=== PATIENT | female | born 1940 | race Caucasian/White ===

== ENCOUNTER 2020-03-23 08:51 | Outpatient (REF) | payer MEDICARE, SELFPAY ==
[2020-03-23 11:47] LABS: Cholesterol 261 mg/dL; HDL Cholesterol 51 mg/dL; LDL Cholesterol Calculated 159 mg/dl; Triglycerides 257 mg/dL
== END 2020-03-23 08:52 | disposition home or self-care (01) ==
LOC: HO.HMGCLDS 08:51
PROVIDERS: PCP Family Medicine; Visit Provider Family Medicine
DX: R79.89 Other specified abnormal findings of blood chemistry (principal)
CPT/HCPCS: 80061

== ENCOUNTER 2020-07-06 11:43 | Emergency (ER) | payer MEDICARE, SELFPAY ==
[2020-07-06 11:50] VITALS: BP 168/87; PULSE 83; RESP 16; TEMP 36.1; O2SAT 95; BMI 26.4
== END 2020-07-06 16:03 | disposition left against medical advice (07) ==
PROVIDERS: Emergency Provider Emergency Medicine; PCP Internal Medicine
DX: R53.1 Weakness (principal); R42 Dizziness and giddiness; I10 Essential (primary) hypertension
CPT/HCPCS: 99281; 99282

== ENCOUNTER 2020-08-20 08:23 | Outpatient (REF) | payer MEDICARE, SELFPAY ==
[2020-08-20 11:51] LABS: Hematocrit 44.9 % (37-47); Hemoglobin 14.5 g/dl (12.0-16.0); Mean Corpuscular HGB Conc 32.3 g/dl (31.0-35.0); Mean Corpuscular Hemoglobin 29.4 pg (27.0-33.0); Mean Corpuscular Volume 90.9 fL (80-98); Mean Platelet Volume 10.5 fL (9.4-12.3); Platelet Count 218 X10*3/uL (160-400); Red Blood Count 4.94 X10*6/uL (4.20-5.50); Red Cell Distribution Width 13.6 % (11.0-16.0); White Blood Count 6.5 X10*3/uL (4.8-10.8)
[2020-08-20 11:55] LABS: Alanine Aminotransferase 12 U/L (0-31); Albumin Level 4.1 g/dL (3.5-5.0); Alkaline Phosphatase 70 U/L (39-117); Anion Gap 12 (12-20); Aspartate Amino Transferase 17 U/L (5-31); Bilirubin Total 0.7 mg/dL (0.0-1.0); Blood Urea Nitrogen 20 mg/dL (9-16); Calcium 9.5 mg/dL (8.4-10.2); Carbon Dioxide 31 mmol/L (22-29); Chloride 102 mmol/L (96-108); Cholesterol 259 mg/dL; Estimated Glomerular Filt Rate > 60; Glucose Fasting 79 mg/dL (60-99); HDL Cholesterol 56 mg/dL; LDL Cholesterol Calculated 164 mg/dl; Potassium 4.2 mmol/L (3.3-5.1); Sodium 141 mmol/L (135-145); Total Protein 6.9 g/dL (6.5-8.0); Triglycerides 197 mg/dL
[2020-08-20 12:51] LABS: TSH reflex Free T4 2.05 uIU/mL (0.32-4.0)
== END 2020-08-20 08:24 | disposition home or self-care (01) ==
LOC: HO.HMGCLDS 08:23
PROVIDERS: PCP Internal Medicine; Visit Provider Internal Medicine
DX: E78.00 Pure hypercholesterolemia, unspecified (principal); I10 Essential (primary) hypertension
CPT/HCPCS: 36415; 80053; 80061; 84443; 85027

== ENCOUNTER → 2020-11-16 08:26 | Outpatient (BNVA) | payer MEDICARE, SELFPAY | PROVIDERS: PCP Internal Medicine; Referring Provider Internal Medicine; Visit Provider Internal Medicine ==

== ENCOUNTER 2021-05-19 07:28 | Outpatient (REF) | payer MEDICARE, SELFPAY ==
[2021-05-19 11:29] LABS: Hematocrit 43.2 % (37.0-47.0); Hemoglobin 13.9 g/dl (12.0-16.0); Mean Corpuscular HGB Conc 32.2 g/dl (31.0-35.0); Mean Corpuscular Hemoglobin 29.3 pg (27.0-33.0); Mean Corpuscular Volume 90.9 fL (80.0-98.0); Mean Platelet Volume 10.2 fL (9.4-12.3); Platelet Count 213 X10*3/uL (160-400); Red Blood Count 4.75 X10*6/uL (4.20-5.50); Red Cell Distribution Width 13.9 % (11.0-16.0); White Blood Count 5.7 X10*3/uL (4.8-10.8)
[2021-05-19 11:43] LABS: Alanine Aminotransferase 10 U/L (0-31); Albumin Level 3.9 g/dL (3.5-5.0); Alkaline Phosphatase 74 U/L (39-117); Anion Gap 10 (12-20); Aspartate Amino Transferase 18 U/L (5-31); Bilirubin Total 0.9 mg/dL (0.0-1.0); Blood Urea Nitrogen 23 mg/dL (9-16); Calcium 9.4 mg/dL (8.4-10.2); Carbon Dioxide 31 mmol/L (22-29); Chloride 104 mmol/L (96-108); Cholesterol 240 mg/dL; Estimated Glomerular Filt Rate > 60; Glucose Fasting 91 mg/dL (60-99); HDL Cholesterol 53 mg/dL; LDL Cholesterol Calculated 160 mg/dl; Potassium 3.8 mmol/L (3.3-5.1); Sodium 141 mmol/L (135-145); Total Protein 6.7 g/dL (6.5-8.0); Triglycerides 136 mg/dL
[2021-05-19 12:07] LABS: TSH reflex Free T4 3.73 uIU/mL (0.32-4.0)
== END 2021-05-19 07:29 | disposition home or self-care (01) ==
LOC: HO.HMGCLDS 07:28
PROVIDERS: Visit Provider Internal Medicine
DX: E78.00 Pure hypercholesterolemia, unspecified (principal); I10 Essential (primary) hypertension; R53.83 Other fatigue
CPT/HCPCS: 36415; 80053; 80061; 84443; 85027

== ENCOUNTER 2021-06-21 09:19 | Emergency (ER) | payer MEDICARE, SELFPAY ==
--- NOTE | ~2021-06-21 | CT_ITS ---
EXAMINATION: CT BRAIN WITHOUT CONTRAST CT CERVICAL SPINE WITHOUT CONTRAST CLINICAL INFORMATION: Left arm numbness. COMPARISON: CT brain 07/21/2019 TECHNIQUE: 5 mm thin axial and reformatted 2 mm thin sagittal and coronal images of the brain were obtained. Subsequently, axial 3 mm thin and reformatted 2 mm thin sagittal and coronal images of the cervical spine were obtained. DLP: 865 mGy-cm FINDINGS: BRAIN: There is no acute intra-axial, extra-axial bleed, masses or midline shift. The lateral ventricles are symmetrical in size and configuration without enlargement. There is no acute infarct in evolution. There is no edema. Bone windows reveal no calvarial abnormality. Bilateral paranasal sinuses and mastoid air cells are well aerated. CERVICAL SPINE: There is normal cervical lordosis. The vertebral heights and alignment are normal. There is mild loss of the C4-C5, C5-C6 and C6-C7 disc heights with mild ventral and posterior spondylosis. No lytic or sclerotic process seen. The craniovertebral junction and the C1-C2 alignment is normal. The airway is widely patent. The lung apices are clear. The thyroid lobes, submandibular and parotid glands are symmetrical and normal. The visualized paranasal sinuses and mastoid air cells are well aerated and clear. There is mild narrowing of left neural foramina at C3-C4. There is a mild disc bulge/osteophyte complex at the C4-C5, C5-C6 disc levels with mild bilateral narrowing of the neural foramina from uncovertebral and facet joint hypertrophy. Minimal AP canal stenosis is suspected at the C4-C5 disc level. The C6-C7 and C7-T1 disc levels appear unremarkable. CT/CT cervical spine wo con IMPRESSION: No acute intracranial process seen. Mild degenerative osteophyte/bulge complex at the C4-C5, C5-C6 disc levels with minimal AP canal narrowing at the C4-C5 disc level. There is bilateral mild narrowing of the neural foramina at the C4-C5 and C5-C6 disc levels. No visible acute fracture or dislocation is seen.
--- NOTE | ~2021-06-21 | XR_ITS ---
EXAMINATION: XR CHEST CLINICAL INFORMATION: Dyspnea COMPARISON: Previous chest x-ray April 2017 TECHNIQUE: Frontal view of the chest was obtained. FINDINGS: The cardiac and mediastinal contours are stable. The lungs are clear. There is no pleural effusion or pneumothorax. There are mild degenerative changes of the spine. There may be changes from old trauma of the left proximal humerus. XR/XR chest 1V IMPRESSION: No evidence for acute disease in the chest.
[2021-06-21 10:01] VITALS: BP 166/81; PULSE 79; RESP 22; TEMP 36.7; O2SAT 94; BMI 24.5
--- NOTE | 2021-06-21 10:04 | ECG_ITS ---
Test Reason : sob Blood Pressure : / mmHG Vent. Rate : 077 BPM Atrial Rate : 077 BPM P-R Int : 156 ms QRS Dur : 076 ms QT Int : 368 ms P-R-T Axes : 061 -08 011 degrees QTc Int : 416 ms Sinus rhythm with occasional Premature ventricular complexes Inferior infarct (cited on or before 21-JUL-2019) Abnormal ECG When compared with ECG of 21-JUL-2019 11:21, Premature ventricular complexes are now Present Referred By: Generic ED Physician Electronically Signed By:RAY MEADOWS
[2021-06-21 11:18] LABS: Hematocrit 45.4 % (37.0-47.0); Hemoglobin 15.1 g/dl (12.0-16.0); Mean Corpuscular HGB Conc 33.3 g/dl (31.0-35.0); Mean Corpuscular Hemoglobin 29.6 pg (27.0-33.0); Mean Platelet Volume 9.8 fL (9.4-12.3); Platelet Count 230 X10*3/uL (160-400); Red Cell Distribution Width 13.6 % (11.0-16.0); White Blood Count 7.6 X10*3/uL (4.8-10.8)
[2021-06-21 11:29] LABS: Anion Gap 11 (12-20); Blood Urea Nitrogen 21 mg/dL (9-16); Calcium 9.8 mg/dL (8.4-10.2); Carbon Dioxide 31 mmol/L (22-29); Chloride 103 mmol/L (96-108); Creatinine Clr Calc Pharmacy 53.5; Estimated Glomerular Filt Rate > 60; Glucose Random 104 mg/dL (60-115); Potassium 4.6 mmol/L (3.3-5.1); Sodium 140 mmol/L (135-145)
[2021-06-21 11:36] LABS: Troponin-I High Sensitivity < 3.5 ng/L (<3.5-17.0)
[2021-06-21 12:48] VITALS: BP 154/81; PULSE 81
--- NOTE | 2021-06-21 14:16 | ED.SOB ---
HPI - SOB/Dyspnea General Chief Complaint: Dyspnea Stated Complaint: left arm numb/weakness/dizziness Time Seen by Provider: 06/21/21 14:06 Source: patient Mode of arrival: ambulatory Limitations: no limitations History of Present Illness MD elicited complaint: shortness of breath (L arm tingling upon waking, neck pain) Onset (ago): day(s) (occurred over 2 days intermittent) Timing: now resolved Severity: mild Exacerbating factors: exertion, movement and stress Relieving factors: nothing Known history of: other (anxiety) Associated symptoms: other (L arm was tingling this AM when she woke up lasted 1 minute resolved with rubbing has had this before (2 days ago), has issues with neck pain) Treatment prior to arrival: none Related Data Previous Rx's Medication Instructions Recorded triamterene 37.5 1 tab PO DAILY #90 tab 07/06/20 mg-hydrochlorothiazide 25 mg tablet nystatin-triamcinolone 100,000 1 appl TOPICAL BID #60 g 08/06/20 unit/g-0.1 % topical cream triamcinolone acetonide 0.1 % 1 appl TOPICAL BID #30 g 08/06/20 topical cream nystatin 100,000 unit/gram topical 1 appl TOPICAL BID #30 g 05/05/21 cream Allergies Allergy/AdvReac Type Severity Reaction Status Date / Time ciprofloxacin [From CIPRO] Allergy Intermediate VOMITING Verified 05/25/21 09:27 hydrocortisone [Cipro HC] AdvReac Unknown vomiting Verified 05/25/21 09:27 Statins Depletion Allergy Unknown vomiting Uncoded 05/25/21 09:27 Review of Systems Review of Systems: Constitutional : No Fever, No Chills ENT/Mouth : No sore throat, No Rhinorrhea, No Swallowing Difficulty Eyes: No Eye Pain, No Swelling, No Redness Cardiovascular : No Chest Pain, positive SOB, No Orthopnea, no Edema Respiratory : No Cough, No Sputum, No Wheezing, positive dyspnea Gastrointestinal : No Nausea, No Vomiting, No Diarrhea, No abdominal Pain, No Hematochezia, No Melena Genitourinary : No Dysuria, No Urinary Frequency, No Hematuria Musculoskeletal : No joint pain, No Myalgias Skin : No Skin Lesions, No rash Neuro : No Weakness, pos Numbness, No Dizziness, No Headache Psych : No Anxiety/Panic, No Depression Heme/Lymph: No Bruising, No Lymphadenopathy Endocrine : No Polyuria, No Polydipsia All other systems reviewed and are negative [facility] Past Medical History Attestation statement: The following information was validated with the patient. Medical History Annual physical exam Anxiety MARTINEZ (dyspnea on exertion) Dysplastic nevi Fatigue HTN (hypertension) Hypercholesterolemia Osteopenia Osteopenia Osteoporosis Surgical History H/O colonoscopy Family History Family History Father No problems noted. Mother Osteomyelitis Social History Social History Household Members Other:: Lives alone, exercise 5 times a week Housing: House Patient Tobacco Use Status: Former Tobacco user e-Cigarette/Vaping Use: Never Used Advance Directives: No Advance Directives Information Provided: No Current occupational status: retired Physical Exam Vital Signs: Vital Signs: Last Vital Signs Temp 98.1 F 06/21/21 15:24 Pulse 77 06/21/21 15:24 Resp 18 06/21/21 15:24 BP 152/75 H 06/21/21 15:24 Pulse Ox 96 06/21/21 15:24 BMI result Body Mass Index 24.5 Appearance: Alert. Oriented X3. No acute distress. Eyes: Pupils equal, round and reactive to light. ENT: Pharynx normal. Neck: Normal inspection. Neck supple. some pain on Left side of neck with spurling's maneuver and palpation CVS: Normal heart rate and rhythm. Pulses normal. Respiratory: No respiratory distress. Breath sounds normal. Abdomen: Soft and non-tender. Skin: Skin warm and dry. Normal skin color. Normal skin turgor. Extremities: No lower extremity edema. No calf ttp Neuro: Oriented X 3. No motor deficit. No sensory deficit. Course Course Course Narrative: H/H normal, trop negative x 2, BNP negative, CXR negative likely symptoms in arm this AM that lasted a minute upon waking was cervical radiculopathy as it improved with rubbing arm and stretching has had this dyspnea before would benefit her to see a senior cytogenetics laboratory director for ECHO/stress test MDM - SOB/Dyspnea MDM Narrative Medical decision making narrative: 80 yo female with hx of HTN, HLD, anxiety comes in with bouts on and off of dyspnea at times but no chest pain. She also notes that two days ago and this AM upon waking her L arm was number for a minute she rubbed it and it resolved. She does have neck pain at times. She checks her temperature every day due to COVID and noted today it was 95.2. She has seen a walk in clinic but not a senior cytogenetics laboratory director for her dyspnea. At this time will obtain EKG, CXR, BNP, troponin x 2, CT scan of head though it seems her L arm symptoms upon waking is likely a cervical radiculopathy and CT scan of neck. Dispo per results and findings Lab Data Result diagrams: 06/21/21 11:10 06/21/21 11:10 Labs: Lab Results 06/21/21 06/21/21 06/21/21 Range/Units 11:10 11:10 11:10 WBC 7.6 (4.8-10.8) X10*3/uL RBC 5.10 (4.20-5.50) X10*6/uL Hgb 15.1 (12.0-16.0) g/dl Hct 45.4 (37.0-47.0) % MCV 89.0 (80.0-98.0) fL MCH 29.6 (27.0-33.0) pg MCHC 33.3 (31.0-35.0) g/dl RDW 13.6 (11.0-16.0) % Plt Count 230 (160-400) X10*3/uL MPV 9.8 (9.4-12.3) fL Absolute Nucleated RBC 0.000 (0.0-0.012) X10*3/uL Nucleated RBC % (auto) 0.0 (0.0-0.2) /100WBC Sodium 140 (135-145) mmol/L Potassium 4.6 D (3.3-5.1) mmol/L Chloride 103 (96-108) mmol/L Carbon Dioxide 31 H (22-29) mmol/L Anion Gap 11 L (12-20) BUN 21 H (9-16) mg/dL Creatinine 0.72 (0.5-1.4) mg/dL Estim Creat Clear Calc 53.5 Estimated GFR > 60 Random Glucose 104 (60-115) mg/dL Calcium 9.8 (8.4-10.2) mg/dL Troponin I High Sens < 3.5 (<3.5-17.0) ng/L B-Natriuretic Peptide (<100) pg/mL COVID-19 ([facility]) (Negative) COVID-19 [facility] 06/21/21 06/21/21 06/21/21 Range/Units 15:07 15:07 15:07 WBC (4.8-10.8) X10*3/uL RBC (4.20-5.50) X10*6/uL Hgb (12.0-16.0) g/dl Hct (37.0-47.0) % MCV (80.0-98.0) fL MCH (27.0-33.0) pg MCHC (31.0-35.0) g/dl RDW (11.0-16.0) % Plt Count (160-400) X10*3/uL MPV (9.4-12.3) fL Absolute Nucleated RBC (0.0-0.012) X10*3/uL Nucleated RBC % (auto) (0.0-0.2) /100WBC Sodium (135-145) mmol/L Potassium (3.3-5.1) mmol/L Chloride (96-108) mmol/L Carbon Dioxide (22-29) mmol/L Anion Gap (12-20) BUN (9-16) mg/dL Creatinine (0.5-1.4) mg/dL Estim Creat Clear Calc Estimated GFR Random Glucose (60-115) mg/dL Calcium (8.4-10.2) mg/dL Troponin I High Sens < 3.5 (<3.5-17.0) ng/L B-Natriuretic Peptide < 10 (<100) pg/mL COVID-19 ([facility]) Negative (Negative) COVID-19 Clin [employer] See Note ECG Data Attestation: I personally reviewed and interpreted this ECG as follows: ECG interpretation date: 06/21/21 ECG interpretation time: 14:18 Interpretation: Rate: 77 Rhythm: NSR with occ PVCs [place]: left Normal P waves. Normal KAMI. Normal QRS complex. ST T wave : no JUAN PABLO, normal , inverted T wave III qTC: normal prior studies: no acute ischemia The study has been interpreted contemporaneously by me. . Discharge Plan Discharge Clinical Impression: MARTINEZ (dyspnea on exertion), Cervical radiculopathy Patient Disposition: Home, Self-Care Instructions: Cervical Radiculopathy (ED), Dyspnea (ED) Additional Instructions: return to ED for any worsening symptoms or concerns No acute intracranial process seen. ? Mild degenerative osteophyte/bulge complex at the C4-C5, C5-C6 disc levels with minimal AP canal narrowing at the C4-C5 disc level. There is bilateral mild narrowing of the neural foramina at the C4-C5 and C5-C6 disc levels. No visible acute fracture or dislocation is seen. Prescriptions: No Action triamterene-hydrochlorothiazid 37.5-25 mg tablet 1 tab PO DAILY Qty: 90 3RF triamcinolone acetonide 0.1 % cream 1 appl topical BID Qty: 30 0RF nystatin 100,000 unit/gram cream 1 appl topical BID Qty: 30 0RF nystatin-triamcinolone 100,000-0.1 unit/g-% cream 1 appl topical BID Qty: 60 0RF Referrals: Renee Lizarraga MD [Primary Care Provider] - 2 days (if this persists) Abilio Veliz MD [Physician] - 1 week (senior cytogenetics laboratory director)
[2021-06-21 15:24] VITALS: BP 152/75; PULSE 77; RESP 18; TEMP 36.7; O2SAT 96
[2021-06-21 15:30] LABS: COVID-19 Test Negative (Negative)
[2021-06-21 15:36] LABS: B Type Natriuretic Peptide < 10 pg/mL (<100); Troponin-I High Sensitivity < 3.5 ng/L (<3.5-17.0)
[2021-06-21 16:11] VITALS: BP 136/74; PULSE 88; RESP 18; O2SAT 96
== END 2021-06-21 16:23 | disposition home or self-care (01) ==
PROVIDERS: Emergency Provider Emergency Medicine; PCP Internal Medicine
DX: M54.12 Radiculopathy, cervical region (principal); R06.00 Dyspnea, unspecified; R51.9 Headache, unspecified; R06.02 Shortness of breath; R20.0 Anesthesia of skin; R42 Dizziness and giddiness; Z20.822 Contact with and (suspected) exposure to COVID-19; Z87.891 Personal history of nicotine dependence; Z79.899 Other long term (current) drug therapy
CPT/HCPCS: 36415; 70450; 71045; 72125; 80048; 83880; 84484; 85027; 87635; 93005; 99284

== ENCOUNTER → 2021-07-27 10:23 | Outpatient (BNVA) | payer MEDICARE, SELFPAY | PROVIDERS: PCP Internal Medicine; Referring Provider Internal Medicine; Visit Provider Internal Medicine | DX: R94.31 Abnormal electrocardiogram [ECG] [EKG] (principal); I49.3 Ventricular premature depolarization; I10 Essential (primary) hypertension | CPT/HCPCS: 99202 ==

== ENCOUNTER → 2021-12-22 08:32 | Outpatient (REF) | payer MEDICARE, SELFPAY ==
--- NOTE | 2021-12-22 08:42 | CA_ITS ---
Transthoracic Echocardiogram Patient (Last, First, Middle): Carmelita Rodrigez, Gender: Female Date of : 1940 Age: 81 Procedure Date: 12/22/2021 Procedure Type: Transthoracic Echocardiogram Location: OP Height: 154.94 cm Weight: 60.78 kg BSA: 1.59 m2 Heart Rate: bpm BP: 132 / 70 mmHg Hand Booked Folder And Stitcher: AKIKO Referring MD: Abilio Veliz MD Shake Out Worker: George Hawk MD Symptoms: R06.00 - Dyspnea, unspecified Study Quality: Adequate ECG Rhythm: Sinus Conclusions: - 1. Normal LV systolic function with mild asymmetric septal hypertrophy with impaired relaxation filling pattern 2. Mild mitral calcification with normal cardiac valvular Doppler 3. Normal RV systolic pressure 4. No gross pericardial effusion Findings Left Ventricle Normal left ventricular size, thickness, and systolic function. The visually estimated ejection fraction is between 60-65%. Spectral Doppler is indicative of an impaired relaxation filling pattern. E/E prime ratio is between 8 and 15 consistent with indeterminate filling pressures. There is mild septal asymmetric hypertrophy. Right Ventricle Normal right ventricular cavity size and systolic function. Atria The left atrium is normal in size. There is lipomatous hypertrophy of the interatrial septum. There is no evidence of interatrial shunt. The right atrium is normal in size. Aortic Valve The aortic valve structure and function is likely normal. There is no aortic valve stenosis. There is no aortic valve regurgitation. Mitral Valve There is mild anterior and posterior mitral leaflet thickening. There is mild mitral annular calcification. There is trace mitral valve regurgitation. There is no mitral valve stenosis. Pulmonic Valve The pulmonic valve was not well visualized. Tricuspid Valve Likely normal tricuspid valve structure and function. There is trace tricuspid valve regurgitation. The right ventricular systolic pressure is normal. The right ventricular systolic pressure is 16 mmHg. Normal right atrial pressure. There is no evidence of pulmonary hypertension. Great Vessels All visible segments of the aorta are normal in size. The pulmonary artery was not well visualized. Venous The inferior vena cava is normal in size and collapses greater than 50% with inspiration. Pericardium/Pleural There is no evidence of pericardial effusion. Prior Study Comparison No prior study available for comparison. Measurements 2D Linear Measurements IVSd: 1.03 0.6-0.9/0.6-1.0 cm LVIDd: 4.32 3.9-5.3/4.2-5.9 cm LVIDd Index: 2.72 2.4-3.2/2.2-3.1 cm/m2 LVIDs: 2.65 2.0-3.6 cm LVPWd: 0.89 0.7-1.1 cm LA Diam: 3.70 2.7-3.8/3.0-4.0 cm LAIDs Index: 2.33 1.5-2.3 cm/m2 LV Mass: 168.72 67-162/88-224 g LV Mass Index: 106.11 43-95/49-115 g/m2 LVOT Diam: 1.90 3.0+(-)1.3 cm 2D Systolic Function EF 4C: 61.50 >55% EF 2C: 68.50 >55% EF BiP: 65.20 >55% Mitral Valve MV Pk E: 0.64 MV PK A: 0.83 MV Decel Time: 278.00 E/A: 0.80 E'Lateral: 8.27 E'Medial: 4.03 E/E' Med: 15.80 E/E' Lat: 7.70 PHT: 82.00 MVA PHT: 2.68 Decel Leslie: 2.29 Aortic Valve AoV Pk Randy: 0.90 AoV Mn Randy: 0.69 AoV VTI: 0.25 AoV Pk Grad: 3.00 Aov Mn Grad: 2.00 YUSUF Cont.VTI: 2.26 LVOT LVOT Pk Randy: 0.74 LVOT Mn Randy: 0.46 LVOT VTI: 0.20 LVOT Pk Grad: 2.00 LVOT Mn Grad: 1.00 LVOT Diam: 1.90 LVOT Area: 2.84 Diastolic Function MV Pk E: 0.64 MV Pk A: 0.83 E/A: 0.80 E'Medial: 4.03 E/E' Med: 15.80 E' Laterial: 8.27 E/E' Lat: 7.70 Right Ventricle TAPSE (mm): 19.90 TVS' Randy: 10.90 Tricuspid Valve TR Pk Randy: 1.82 TR Pk Grad: 13.00 RA Press: 3.00 RVSP: 16.00 Great Vessels Aorta Sinus of Valsalva: 3.09 2.0-3.[address] [place]: 2.64 1.7-3.4 cm Ao Asc: 3.00 2.1-3.4 cm Updated in Other Vendor System with Status of Final George Hawk MD electronically signed on 12/22/2021 4:41:13 PM with status of Final
== END ==
LOC: HO.CARD 08:32
PROVIDERS: PCP Internal Medicine; Visit Provider Internal Medicine
DX: R06.00 Dyspnea, unspecified (principal); R94.31 Abnormal electrocardiogram [ECG] [EKG]
CPT/HCPCS: 93306

== ENCOUNTER 2022-03-08 08:02 | Outpatient (REF) | payer MEDICARE, SELFPAY ==
[2022-03-08 14:22] LABS: MANUAL DIFF FLAG NO
[2022-03-08 14:32] LABS: Basophils Percent Auto 0.4 % (0-2); Eosinophils Absolute Auto 0.1 X10*3/uL (0.0-0.4); Eosinophils Percent Auto 2.3 % (0-4); Hematocrit 43.4 % (37.0-47.0); Hemoglobin 13.7 g/dl (12.0-16.0); Imm Gran Abs Auto 0.01 X10*3/uL (0.00-0.03); Imm Gran Pct Auto 0.2 % (0.0-0.4); Lymphocytes Absolute Auto 1.2 X10*3/uL (1.2-4.9); Lymphocytes Percent Auto 22.5 % (20-40); Mean Corpuscular HGB Conc 31.6 g/dl (31.0-35.0); Mean Corpuscular Hemoglobin 29.1 pg (27.0-33.0); Mean Corpuscular Volume 92.1 fL (80.0-98.0); Mean Platelet Volume 10.5 fL (9.4-12.3); Monocytes Absolute Auto 0.4 X10*3/uL (0.1-1.2); Monocytes Percent Auto 7.8 % (2-11); Neutrophils Absolute Auto 3.5 x10*3/uL (2.0-8.3); Neutrophils Percent Auto 66.8 % (45-73); Platelet Count 220 X10*3/uL (160-400); Red Blood Count 4.71 X10*6/uL (4.20-5.50); Red Cell Distribution Width 13.8 % (11.0-16.0); White Blood Count 5.3 X10*3/uL (4.8-10.8)
[2022-03-08 17:04] LABS: Alanine Aminotransferase 14 U/L (0-31); Albumin Level 3.9 g/dL (3.5-5.0); Alkaline Phosphatase 74 U/L (39-117); Anion Gap 12 (12-20); Aspartate Amino Transferase 18 U/L (5-31); Bilirubin Total 0.6 mg/dL (0.0-1.0); Blood Urea Nitrogen 20 mg/dL (9-16); Calcium 9.3 mg/dL (8.4-10.2); Carbon Dioxide 31 mmol/L (22-29); Chloride 104 mmol/L (96-108); Cholesterol 267 mg/dL; Estimated Glomerular Filt Rate > 60; Glucose Fasting 92 mg/dL (60-99); HDL Cholesterol 52 mg/dL; LDL Cholesterol Calculated 185 mg/dl; Potassium 3.7 mmol/L (3.3-5.1); Sodium 143 mmol/L (135-145); Total Protein 6.5 g/dL (6.5-8.0); Triglycerides 152 mg/dL; Vitamin D 25-OH Total 25.5 ng/mL (>30)
== END 2022-03-08 08:03 | disposition home or self-care (01) ==
LOC: HO.HMGCLDS 08:02
PROVIDERS: PCP Internal Medicine; Visit Provider Internal Medicine
DX: E55.9 Vitamin D deficiency, unspecified (principal); E78.00 Pure hypercholesterolemia, unspecified; I49.3 Ventricular premature depolarization; I10 Essential (primary) hypertension
CPT/HCPCS: 36415; 80053; 80061; 82306; 85025

== ENCOUNTER 2022-04-18 13:00 | Outpatient (RCR) | payer MEDICARE, SELFPAY ==
--- NOTE | 2022-04-05 16:48 | MHC.PT.EP ---
[facility] [place] Office [place] Office [place] Office [address] [phone] F: [phone] F: [phone] F: [phone] F: [phone] Physical Therapy Plan of Care Date of Evaluation: Date of Surgery: Diagnosis: Cervical radiculopathy Assessment: Pt is an 81 y/o female referred to PT for eval and treat of cervical radiculopathy resulting in decreased tolerance for static postures, reading, lifting objects of weight, walking, as well as disturbed sleep and frequent CHAMORRO secondary to increases suboccipital and accessory tissue tension, decreased cervical and scapular posture, and pain. Pt is deemed an appropriate candidate to receive skilled PT services to address their physical impairments in order to improve their functional ability. Frequency and Duration: The patient will be seen 2 x/ wk x 4wks. Short Term Goals: Initiate HEP. Improve baseline pain to < 3/10; initial 4/10. Jail Goals: I with Home Program. Pt will be able to as much as she'd like with moderate pain in her neck; initial: cannot read as much as she'd like d/t severe cervical pain. Improve NDI outcome measure by at least 8 points in order to demonstrate improved cervical function. Initial: 15/50 (30%) Treatment Plan: Modalities to reduce pain, spasms and effusion. Manual therapy to restore motion and function. Therapeutic exercise to improve strength and flexibility. Neuromuscular re-education for posture and balance. Therapeutic activities to return to functional activities of daily living. Electronically signed by: Dennis Pollock PT Please sign and return to therapist. Thank you for your referral.
--- NOTE | 2022-05-23 14:48 | MHC.PT.DC ---
[facility] [place] Office [place] Office [place] Office [address] Yaw Herring [address] [phone] F: [phone] F: [phone] F: [phone] F: [phone] Physical Therapy Discharge Report Diagnosis: Cervical radiculopathy Date of Surgery: Date of Evaluation: 04/05/22 Date of Discharge: 05/23/22 Treatments to Date: 3 Cancellations to Date: 2 No Shows to Date: Discharge Status: Patient Elected to Stop Discharge Summary: From last Tx: Reviewed exercises with good tolerance and motivation. no adverse effects. Trialed gentle manual with good tolerance. continue as sher, gentle progression. Patient improving. Electronically signed by: Dennis Pollock PT. Please sign and return to therapist. Thank you for your referral.
== END 2022-05-23 14:48 | disposition home or self-care (01) ==
LOC: HO.PTCHIC 13:00
PROVIDERS: PCP Internal Medicine; Visit Provider Internal Medicine
DX: M54.12 Radiculopathy, cervical region (principal)
CPT/HCPCS: 97110; 97140; 97161

== ENCOUNTER 2023-01-17 09:51 | Outpatient (AMB) | payer MEDICARE, SELFPAY ==
[2023-01-17 09:59] VITALS: BP 134/72; PULSE 65; O2SAT 95; BMI 25.6
--- NOTE | 2023-01-17 09:59 | MHC.PC.OV ---
Vital Signs 01/17/23 09:59 Height 5 ft 2 in Weight 140 lb BMI 25.6 BP 134/72 Blood Pressure Location Lt brachial Position Sitting Pulse 65 Pulse Source Pulse Oximeter Pulse Oximetry (%) 95 Oxygen Delivery Method Room Air Intake Visit Reasons: sick Intake Note: Pt is here today for a sick visit. Pt c/o dizziness and feeling tired. Pt also c/o out of breath a lot. Allergies ciprofloxacin [From CIPRO] Allergy (Intermediate, Verified 01/17/23 09:59) VOMITING hydrocortisone [Cipro HC] Adverse Reaction (Unknown, Verified 01/17/23 09:59) vomiting Statins Depletion Allergy (Unknown, Uncoded 01/17/23 09:59) vomiting Medication List - Last Reconciled 01/17/23 by Renee Lizarraga MD nystatin 1 appl topical BID nystatin-triamcinolone 100,000-0.1 unit/g-% 1 appl topical BID triamcinolone acetonide 0.1% 1 appl topical BID triamterene-hydrochlorothiazid 37.5-25 mg 1 tab PO DAILY Tobacco use date assessed: 01/17/23 Fall risk assessment: No Falls in past year Last assessed Fall Risk: 01/17/23 Dental Screening Dental Screen Date: 01/17/23 Did you have a dental visit in the last 12 months?: Yes Did you have a dental problem in the last 6 months where you did not have access to dental care?: No Was dental information given to patient?: Patient has dentist HPI sick HPI Details Pt c/o worsening anxiety and depression for 6 months. Pt denies change in appetite, sleep pattern, weight loss. Patient has 3 close friends within the last year. Hypertension has been controlled on Dyazide. PFSH Medical History Dysplastic nevi Annual physical exam MARTINEZ (dyspnea on exertion) Fatigue Anxiety Hypercholesterolemia Osteopenia Surgical History H/O colonoscopy Family History Father No problems noted. Mother Osteomyelitis Social History Household Members Other:: Lives alone, exercise 5 times a week Housing: House Patient Tobacco Use Status: Former Tobacco user e-Cigarette/Vaping Use: Never Used Current occupational status: retired Cognitive needs: No Hearing needs: No Vision needs: Yes Questionnaire Thrive Questionnaire Date Thrive assessed: 04/11/22 COLLEEN-7 AMB Questionnaire COLLEEN-7 Date COLLEEN - 7 assessed: 04/11/22 Source: Developed by Drs. José Miguel Canela, Nafisa Lucas, Yony Schultz and colleagues, with an educational neal from [employer]. Review of Systems Const All systems reviewed & are unremarkable except as noted in HPI and below Reports no additional complaints Eyes Reports no additional complaints ENT Reports no additional complaints Card Reports no additional complaints Resp Reports no additional complaints GI Reports no additional complaints Reports no additional complaints Physical exam (Primary Care) Vital Signs: Last Vital Signs Pulse 65 01/17/23 09:59 BP 134/72 01/17/23 09:59 Pulse Ox 95 01/17/23 09:59 Oxygen Delivery Method Room Air 01/17/23 09:59 BMI result Body Mass Index 25.6 Tobacco/Smoking Status: Tobacco use Status Tobacco use date assessed 01/17/23 01/17/23 10:00 Patient Tobacco Use Status Former Tobacco user 01/17/23 10:00 e-Cigarette/Vaping Use Never Used 01/17/23 10:00 Thrive Assessment: Date of Thrive Assessment Date Thrive assessed 04/11/22 01/17/23 10:00 Const General: no acute distress HENMT Head: Yes normal to inspection Ears: hearing grossly normal bilaterally General nose exam: Normal external nose present Face and sinus: Yes normal facial exam Mouth: Normal oral and palatal mucosa present Throat: Yes posterior oropharynx normal Eyes General: appearance normal, both eyes and all related structures Neck Neck: Yes supple Resp Effort & Inspection: normal respiratory effort Auscultation: clear to auscultation bilaterally Cardio Rhythm: regular rhythm Heart sounds: S1 normal heart sound present and S2 normal heart sound present GI Inspection: Yes normal to inspection Palpation (GI): Soft to palpation Percussion: Yes normal to percussion Auscultation: normal bowel sounds Assessment and Plan Assessment & Plan (1) Vitamin D deficiency: Code(s): E55.9 - Vitamin D deficiency, unspecified Plan: Continue vitamin-D (2) PVC (premature ventricular contraction): Code(s): I49.3 - Ventricular premature depolarization (3) Fatigue: Code(s): R53.83 - Other fatigue Plan: Check blood work today including CBC and TSH (4) Hypercholesterolemia: Comment: intolerant to statins Code(s): E78.00 - Pure hypercholesterolemia, unspecified Plan: Check lipid profile (5) Essential hypertension: Code(s): I10 - Essential (primary) hypertension Plan: Continue current medication (6) Anxiety and depression: Code(s): F41.9 - Anxiety disorder, unspecified; F32.A - Depression, unspecified Plan: Start 25 mg of sertraline follow-up in 1 month, patient declined counseling Orders: Orders Comprehensive [place]. Panel Fast Today E55.9 - Vitamin D deficiency, unspecified, E78.00 - Pure hypercholesterolemia, unspecified, I10 - Essential (primary) hypertension, I49.3 - Ventricular premature depolarization, R53.83 - Other fatigue Lipid Panel Today E55.9 - Vitamin D deficiency, unspecified, E78.00 - Pure hypercholesterolemia, unspecified, I10 - Essential (primary) hypertension, I49.3 - Ventricular premature depolarization, R53.83 - Other fatigue Vitamin D 25-OH Total Today E55.9 - Vitamin D deficiency, unspecified, E78.00 - Pure hypercholesterolemia, unspecified, I10 - Essential (primary) hypertension, I49.3 - Ventricular premature depolarization, R53.83 - Other fatigue TSH reflex Free T4 Today E55.9 - Vitamin D deficiency, unspecified, E78.00 - Pure hypercholesterolemia, unspecified, I10 - Essential (primary) hypertension, I49.3 - Ventricular premature depolarization, R53.83 - Other fatigue Complete Blood Count Auto Diff Today E55.9 - Vitamin D deficiency, unspecified, E78.00 - Pure hypercholesterolemia, unspecified, I10 - Essential (primary) hypertension, I49.3 - Ventricular premature depolarization, R53.83 - Other fatigue Medications: New sertraline 25 mg PO DAILY 30 tabs 3RF Coding Level of Care Code Est Pt Level 4 (07264) Diagnoses Vitamin D deficiency E55.9 PVC (premature ventricular contraction) I49.3 Fatigue R53.83 Hypercholesterolemia E78.00 Essential hypertension I10 Anxiety and depression F41.9; F32.A
== END 2023-01-17 10:57 | disposition home or self-care (01) ==
LOC: HO.HMGC 09:51
PROVIDERS: PCP Internal Medicine; Visit Provider Internal Medicine
DX: E55.9 Vitamin D deficiency, unspecified (principal); I49.3 Ventricular premature depolarization; R53.83 Other fatigue; E78.00 Pure hypercholesterolemia, unspecified; I10 Essential (primary) hypertension; F41.9 Anxiety disorder, unspecified; F32.A Depression, unspecified
CPT/HCPCS: 99214

== ENCOUNTER 2023-01-17 10:46 | Outpatient (REF) | payer MEDICARE, SELFPAY ==
[2023-01-17 13:40] LABS: MANUAL DIFF FLAG NO
[2023-01-17 13:46] LABS: Basophils Percent Auto 0.4 % (0-2); Eosinophils Absolute Auto 0.1 X10*3/uL (0.0-0.4); Eosinophils Percent Auto 1.6 % (0-4); Hemoglobin 14.2 g/dl (12.0-16.0); Imm Gran Abs Auto 0.02 X10*3/uL (0.00-0.03); Imm Gran Pct Auto 0.3 % (0.0-0.4); Lymphocytes Absolute Auto 1.5 X10*3/uL (1.2-4.9); Lymphocytes Percent Auto 20.1 % (20-40); Mean Corpuscular HGB Conc 32.3 g/dl (31.0-35.0); Mean Corpuscular Hemoglobin 29.3 pg (27.0-33.0); Mean Corpuscular Volume 90.9 fL (80.0-98.0); Mean Platelet Volume 10.4 fL (9.4-12.3); Monocytes Absolute Auto 0.6 X10*3/uL (0.1-1.2); Monocytes Percent Auto 7.6 % (2-11); Neutrophils Absolute Auto 5.2 x10*3/uL (2.0-8.3); Platelet Count 222 X10*3/uL (160-400); Red Blood Count 4.84 X10*6/uL (4.20-5.50); Red Cell Distribution Width 13.7 % (11.0-16.0); White Blood Count 7.5 X10*3/uL (4.8-10.8)
[2023-01-17 14:19] LABS: Alanine Aminotransferase 12 U/L (0-31); Alkaline Phosphatase 68 U/L (39-117); Anion Gap 12 (12-20); Aspartate Amino Transferase 19 U/L (5-31); Bilirubin Total 0.8 mg/dL (0.0-1.0); Blood Urea Nitrogen 16 mg/dL (9-16); Calcium 9.8 mg/dL (8.4-10.2); Carbon Dioxide 30 mmol/L (22-29); Chloride 102 mmol/L (96-108); Cholesterol 274 mg/dL (<200); Estimated Glomerular Filt Rate > 60; Glucose Fasting 84 mg/dL (60-99); HDL Cholesterol 52 mg/dL (>40); LDL Cholesterol Calculated 187 mg/dL (<100); Potassium 3.6 mmol/L (3.3-5.1); Sodium 140 mmol/L (135-145); Total Protein 7.3 g/dL (6.5-8.0); Triglycerides 175 mg/dL (<150)
[2023-01-17 14:27] LABS: TSH reflex Free T4 2.25 uIU/mL (0.32-4.0); Vitamin D 25-OH Total 27.8 ng/mL (>30)
== END 2023-01-17 10:47 | disposition home or self-care (01) ==
LOC: HO.HMGCLDS 10:46
PROVIDERS: PCP Internal Medicine; Visit Provider Internal Medicine
DX: E55.9 Vitamin D deficiency, unspecified (principal); I49.3 Ventricular premature depolarization; R53.83 Other fatigue; E78.00 Pure hypercholesterolemia, unspecified; I10 Essential (primary) hypertension
CPT/HCPCS: 36415; 80053; 80061; 82306; 84443; 85025

== ENCOUNTER 2023-02-19 09:56 | Outpatient (AMB) | payer MEDICARE, SELFPAY ==
--- NOTE | 2023-02-19 09:58 | A.OFFPC_ITS ---
Vital Signs 02/19/23 09:59 Height 5 ft 2 in Weight 140 lb BMI 25.6 BP 128/70 Blood Pressure Location Lt brachial Position Sitting Pulse 71 Pulse Source Pulse Oximeter Pulse Oximetry (%) 96 Oxygen Delivery Method Room Air Intake Visit Reasons: 1 Month follow up Intake Note: Pt is here today for 1 month follow up visit on BP. Allergies ciprofloxacin [From CIPRO] Allergy (Intermediate, Verified 02/19/23 10:07) VOMITING hydrocortisone [Cipro HC] Adverse Reaction (Unknown, Verified 02/19/23 10:07) vomiting Statins Depletion Allergy (Unknown, Uncoded 02/19/23 10:07) vomiting Medication List - Last Reconciled 02/19/23 by Renee Lizarraga MD nystatin 1 appl topical BID nystatin-triamcinolone 100,000-0.1 unit/g-% 1 appl topical BID triamcinolone acetonide 0.1% 1 appl topical BID triamterene-hydrochlorothiazid 37.5-25 mg 1 tab PO DAILY Tobacco use date assessed: 02/19/23 HPI 1 Month follow up HPI Details Pt presents for the follow-up of chronic anxiety. Patient did not take Zoloft. She has been exercising regularly and eating well-balanced diet. She has been following low-cholesterol diet for hyperlipidemia. Hypertension is controlled on Dyazide. Patient is going for cataract surgery in March. [facility] Medical History (Updated 02/19/23 @ 10:38 by Renee Lizarraga MD) HTN (hypertension) Dysplastic nevi Annual physical exam MARTINEZ (dyspnea on exertion) Fatigue Anxiety Hypercholesterolemia Osteopenia Surgical History H/O colonoscopy Family History Father No problems noted. Mother Osteomyelitis Household Members Other:: Lives alone, exercise 5 times a week Housing: House Patient Tobacco Use Status: Former Tobacco user e-Cigarette/Vaping Use: Never Used Current occupational status: retired Cognitive needs: No Hearing needs: No Vision needs: Yes Questionnaire PHQ-9 Over the last 2 weeks, how often have you been bothered by any of the following problems? 1. Little interest or pleasure in doing things: several days 2. Feeling down, depressed, or hopeless: several days 3. Trouble falling or staying asleep, or sleeping too much: not at all 4. Feeling tired or having little energy: more than half the days 5. Poor appetite or overeating: not at all 6. Feeling bad about yourself - or that you are a failure or have let yourself or your family down: not at all 7. Trouble concentrating on things, such as reading the newspaper or watching television: not at all 8. Moving or speaking so slowly that other people could have noticed. Or the opposite - being so fidgety or restless that you have been moving around a lot more than usual: not at all 9. Thoughts that you would be better off or of hurting yourself in some way: not at all Total score: 4 Depression Screening Interpretation: Negative Depression Screening Done: Yes 23883 - PHQ-9 Billing: Yes Source: Developed by Drs. José Miguel Canela, Nafisa Lucas, Yony Schultz and colleagues, with an educational neal from [employer]. Thrive Questionnaire Date Thrive assessed: 02/19/23 I am a: Patient What is your living situation today?: I have a steady place to live Within the past 12 months, did the food you bought not last and you didn't have the money to get more?: Never true Within the past 12 months, did you worry whether your food would run out before you got money to buy more?: Never true Do you have trouble paying for medicines?: No Do you have trouble getting transportation to medical appointments?: No Do you have trouble paying your heating and electricity bill?: No Do you have trouble taking care of your child, family member or friend?: No Do you have trouble with day-to-day activities such as bathing, preparing meals, shopping, managing finances, etc.?: No Are you currently unemployed and looking for a job?: No Are you interested in more education?: No Please select the resources that you would like help with: None COLLEEN-7 AMB Questionnaire COLLEEN-7 Date COLLEEN - 7 assessed: 02/19/23 Feeling nervous, anxious, or on edge: 0 = Not at all Not being able to stop or control worryin = Not at all Worrying too much about different things: 1 = Several days Trouble relaxin = Not at all Being so restless that it is hard to sit still: 0 = Not at all Becoming easily annoyed or irritable: 0 = Not at all Feeling afraid as if something awful might happen: 0 = Not at all Total COLLEEN-7 score (0-4 normal; 5-9 mild; 10-14 moderate; 15-21 severe): 1 Source: Developed by Drs. José Miguel Canela, Nafisa Lucas, Yony Schultz and colleagues, with an educational neal from [employer]. Review of Systems Const All systems reviewed & are unremarkable except as noted in HPI and below Reports no additional complaints Eyes Reports no additional complaints ENT Reports no additional complaints Card Reports no additional complaints Resp Reports no additional complaints GI Reports no additional complaints Reports no additional complaints Physical exam (Primary Care) Vital Signs: Last Vital Signs Pulse 71 02/19/23 09:59 BP 128/70 02/19/23 09:59 Pulse Ox 96 02/19/23 09:59 Oxygen Delivery Method Room Air 02/19/23 09:59 BMI result Body Mass Index 25.6 Tobacco/Smoking Status: Tobacco use Status Tobacco use date assessed 02/19/23 02/19/23 10:07 Patient Tobacco Use Status Former Tobacco user 02/19/23 09:59 e-Cigarette/Vaping Use Never Used 02/19/23 09:59 PHQ-9: PHQ-9 Score PHQ-9: Total score 4 02/19/23 10:09 Depression Screening Interpretation: Negative Thrive Assessment: Date of Thrive Assessment Date Thrive assessed 02/19/23 02/19/23 10:09 Const General: no acute distress HENMT Head: Yes normal to inspection Ears: hearing grossly normal bilaterally Mouth: Normal oral and palatal mucosa present Neck Neck: Yes no lymphadenopathy and Yes supple Resp Effort & Inspection: normal respiratory effort Auscultation: clear to auscultation bilaterally Cardio Rhythm: regular rhythm Heart sounds: S1 normal heart sound present and S2 normal heart sound present Assessment and Plan Assessment & Plan (1) Hypercholesterolemia: Comment: intolerant to statins Code(s): E78.00 - Pure hypercholesterolemia, unspecified Plan: Continue low-cholesterol diet (2) HTN (hypertension): Code(s): I10 - Essential (primary) hypertension Qualifiers: Hypertension type: unspecified Qualified Code(s): I10 - Essential (primary) hypertension Plan: Continue Dyzide (3) Anxiety and depression: Code(s): F41.9 - Anxiety disorder, unspecified; F32.A - Depression, unspecified Plan: improved (4) Cataract: Code(s): H26.9 - Unspecified cataract Plan: Pt is cleared for cataract surgery Medications: Discontinued sertraline Discontinued Reason: Doctor's Order 25 mg PO DAILY 30 tabs 3RF Coding Level of Care Code Est Pt Level 4 (14247) Diagnoses Hypercholesterolemia E78.00 Hypertension, unspecified type I10 Hypertension type: unspecified Anxiety and depression F41.9; F32.A Cataract H26.9
[2023-02-19 09:59] VITALS: BP 128/70; PULSE 71; O2SAT 96; BMI 25.6
== END 2023-02-19 10:42 | disposition home or self-care (01) ==
PROVIDERS: PCP Internal Medicine; Visit Provider Internal Medicine
DX: E78.00 Pure hypercholesterolemia, unspecified (principal); I10 Essential (primary) hypertension; F41.9 Anxiety disorder, unspecified; F32.A Depression, unspecified; H26.9 Unspecified cataract
CPT/HCPCS: 99214

== ENCOUNTER 2023-07-12 10:02 | Outpatient (AMB) | payer MEDICARE, SELFPAY ==
[2023-07-12 10:17] VITALS: BP 126/76; PULSE 78; O2SAT 96; BMI 24.9
--- NOTE | 2023-07-12 10:17 | MHC.PC.OV ---
Vital Signs 07/12/23 10:17 07/12/23 10:29 Height 5 ft 2 in Weight 136 lb BMI 24.9 BP 126/76 124/66 Blood Pressure Location Lt brachial Rt brachial Position Sitting Sitting Pulse 78 Pulse Source Pulse Oximeter Pulse Oximetry (%) 96 Oxygen Delivery Method Room Air Intake Visit Reasons: Dizziness Tremor LFT arm ear wax removal Intake Note: Pt is here today for a sick visit. Pt c/o dizziness, and tremor in her L arm/hand. Pt also c/o was in her ears. Pt states that she would like to discuss her lab results cholesterol. Pt also states that she has echo done and would like to talk about the results. Allergies ciprofloxacin [From CIPRO] Allergy (Intermediate, Verified 07/12/23 10:21) VOMITING hydrocortisone [Cipro HC] Adverse Reaction (Unknown, Verified 07/12/23 10:21) vomiting Statins Depletion Allergy (Unknown, Uncoded 07/12/23 10:21) vomiting Medication List - Last Reconciled 07/12/23 by Renee Lizarraga MD meclizine 25 mg PO BID PRN nystatin 1 appl topical BID nystatin-triamcinolone 100,000-0.1 unit/g-% 1 appl topical BID triamcinolone acetonide 0.1% 1 appl topical BID triamterene-hydrochlorothiazid 37.5-25 mg 1 tab PO DAILY Tobacco use date assessed: 07/12/23 Fall risk assessment: No Falls in past year Last assessed Fall Risk: 07/12/23 Dental Screening Dental Screen Date: 07/12/23 Did you have a dental visit in the last 12 months?: Yes Did you have a dental problem in the last 6 months where you did not have access to dental care?: No Was dental information given to patient?: Patient has dentist HPI Dizziness Tremor LFT arm ear wax removal HPI Details Pt reports persistent positional vertigo for a few months. Pt tried vestibular therapy with only temporal relief. Pt c/o chronic L hand tremor when holding a cup or reaching over for many months. Patient had a right shoulder fracture many years ago and has limited range of motion but has been no trying to exercise during yoga classes. pt denies resting tremor. Hypertension is controlled on Dyazide. patient has been following low-cholesterol diet for hyperlipidemia but is concerned about higher levels. [facility] Medical History (Updated 07/12/23 @ 11:20 by Renee Lizarraga MD) HTN (hypertension) Dysplastic nevi Annual physical exam MARTINEZ (dyspnea on exertion) Fatigue Anxiety Hypercholesterolemia Osteopenia Surgical History H/O colonoscopy Family History Father No problems noted. Mother Osteomyelitis Social History Household Members Other:: Lives alone, exercise 5 times a week Housing: House Patient Tobacco Use Status: Former Tobacco user e-Cigarette/Vaping Use: Never Used service: No Current occupational status: retired Cognitive needs: No Hearing needs: No Vision needs: Yes Questionnaire PHQ-9 Over the last 2 weeks, how often have you been bothered by any of the following problems? 1. Little interest or pleasure in doing things: not at all 2. Feeling down, depressed, or hopeless: not at all 3. Trouble falling or staying asleep, or sleeping too much: not at all 4. Feeling tired or having little energy: not at all 5. Poor appetite or overeating: not at all 6. Feeling bad about yourself - or that you are a failure or have let yourself or your family down: not at all 7. Trouble concentrating on things, such as reading the newspaper or watching television: not at all 8. Moving or speaking so slowly that other people could have noticed. Or the opposite - being so fidgety or restless that you have been moving around a lot more than usual: not at all 9. Thoughts that you would be better off or of hurting yourself in some way: not at all Total score: 0 Depression Screening Interpretation: Negative Depression Screening Done: Yes Source: Developed by Drs. José Miguel Canela, Nafisa Lucas, Yony Schultz and colleagues, with an educational neal from [employer]. Thrive Questionnaire Date Thrive assessed: 07/12/23 I am a: Patient What is your living situation today?: I have a steady place to live Within the past 12 months, did the food you bought not last and you didn't have the money to get more?: Never true Within the past 12 months, did you worry whether your food would run out before you got money to buy more?: Never true Do you have trouble paying for medicines?: No Do you have trouble getting transportation to medical appointments?: No Do you have trouble paying your heating and electricity bill?: No Do you have trouble taking care of your child, family member or friend?: No Do you have trouble with day-to-day activities such as bathing, preparing meals, shopping, managing finances, etc.?: No Are you currently unemployed and looking for a job?: No Are you interested in more education?: No Please select the resources that you would like help with: None THRIVE Score: 0 AUDIT C Alcohol Use Questionnaire (AUDIT-C) 1. How often do you have a drink containing alcohol?: Monthly or less 2. How many drinks containing alcohol do you have on a typical day when you are drinking?: 1 or 2 3. How often do you have six or more drinks on one occasion?: Never Total Score: 1 COLLEEN-7 AMB Questionnaire COLLEEN-7 Date COLLEEN - 7 assessed: 07/12/23 Feeling nervous, anxious, or on edge: 0 = Not at all Not being able to stop or control worryin = Not at all Worrying too much about different things: 0 = Not at all Trouble relaxin = Not at all Being so restless that it is hard to sit still: 0 = Not at all Becoming easily annoyed or irritable: 0 = Not at all Feeling afraid as if something awful might happen: 0 = Not at all Total COLLEEN-7 score (0-4 normal; 5-9 mild; 10-14 moderate; 15-21 severe): 0 Source: Developed by Drs. José Miguel Canela, Nafisa Lucas, Yony Schultz and colleagues, with an educational neal from [employer]. Review of Systems Const All systems reviewed & are unremarkable except as noted in HPI and below Eyes Reports no additional complaints ENT Reports no additional complaints Card Reports no additional complaints Resp Reports no additional complaints GI Reports no additional complaints Reports no additional complaints Physical exam (Primary Care) Vital Signs: Last Vital Signs Pulse 78 07/12/23 10:17 BP 124/66 07/12/23 10:29 Pulse Ox 96 07/12/23 10:17 Oxygen Delivery Method Room Air 07/12/23 10:17 BMI result Body Mass Index 24.9 Tobacco/Smoking Status: Tobacco use Status Tobacco use date assessed 07/12/23 07/12/23 10:27 Patient Tobacco Use Status Former Tobacco user 07/12/23 10:27 e-Cigarette/Vaping Use Never Used 07/12/23 10:27 PHQ-9: PHQ-9 Score PHQ-9: Total score 0 07/12/23 10:31 Depression Screening Interpretation: Negative Thrive Assessment: Date of Thrive Assessment Date Thrive assessed 07/12/23 07/12/23 10:31 Const General: no acute distress HENMT Head: Yes normal to inspection Ears: TM's normal bilaterally Face and sinus: Yes normal facial exam Eyes General: appearance normal, both eyes and all related structures Resp Effort & Inspection: normal respiratory effort Auscultation: clear to auscultation bilaterally Cardio Rhythm: regular rhythm Heart sounds: S1 normal heart sound present and S2 normal heart sound present GI Inspection: Yes normal to inspection Palpation (GI): Soft to palpation Neuro General: CN's II-XI intact bilaterally Gait exam (Neuro): Normal gait present Motor exam (neuro): 5/5 motor strength present throughout Romberg Test: Negative Assessment and Plan Assessment & Plan (1) Carotid stenosis, bilateral: Code(s): I65.23 - Occlusion and stenosis of bilateral carotid arteries Plan: Obtain carotid Doppler to evaluate for plaque buildup and to decide if patient needs to try statin again. (2) HTN (hypertension): Code(s): I10 - Essential (primary) hypertension Qualifiers: Hypertension type: unspecified Qualified Code(s): I10 - Essential (primary) hypertension Plan: Continue current medications (3) Hypercholesterolemia: Comment: intolerant to statins Code(s): E78.00 - Pure hypercholesterolemia, unspecified Plan: Continue low-cholesterol diet. Try statin if carotid Doppler is anormal (4) Benign positional vertigo: Code(s): H81.10 - Benign paroxysmal vertigo, unspecified ear Plan: Continue meclizine as needed and home exercises patient declined vestibular therapy Orders: Orders US carotid duplex BI Today I65.23 - Occlusion and stenosis of bilateral carotid arteries Medications: New meclizine 25 mg PO BID PRN 30 tabs 0RF dizziness Coding Level of Care Code Est Pt Level 4 (15237) Diagnoses Carotid stenosis, bilateral I65.23 Hypertension, unspecified type I10 Hypertension type: unspecified Hypercholesterolemia E78.00 Benign positional vertigo H81.10
[2023-07-12 10:29] VITALS: BP 124/66
== END 2023-07-12 11:23 | disposition home or self-care (01) ==
PROVIDERS: PCP Internal Medicine; Visit Provider Internal Medicine
DX: I65.23 Occlusion and stenosis of bilateral carotid arteries (principal); I10 Essential (primary) hypertension; E78.00 Pure hypercholesterolemia, unspecified; H81.10 Benign paroxysmal vertigo, unspecified ear
CPT/HCPCS: 99214

== ENCOUNTER 2023-07-26 08:17 | Outpatient (REF) | payer MEDICARE, SELFPAY ==
--- NOTE | ~2023-07-26 | US_ITS ---
EXAMINATION: US EXTRACRANIAL CAROTID DUPLEX, BILATERAL CLINICAL INFORMATION: Bilateral carotid artery stenosis. COMPARISON: None available. TECHNIQUE: Real-time ultrasound and Doppler techniques (integrating B-mode 2-D vascular images, Doppler spectral analysis and color-flow Doppler imaging) were utilized to interrogate the extracranial carotid arteries, the vertebral arteries and proximal subclavian arteries bilaterally. The degree of stenosis is determined by criteria similar to NASCET. FINDINGS: Right Side: 1. There is mild atherosclerotic plaque seen in the bifurcation/proximal ICA region. 2. The common carotid artery PSV proximally is 86 cm/s and distally 70 cm/s. 3. The proximal internal carotid artery velocities are 55 cm/s systolic and 16 cm/s diastolic. 4. The proximal external carotid artery PSV is 67 cm/s. 5. The vertebral artery shows antegrade flow. 6. The subclavian artery waveforms are normal. Left Side: 1. There is mild atherosclerotic plaque seen in the bifurcation/proximal ICA region. 2. The common carotid artery PSV proximally is 90 cm/s and distally 77 cm/s. 3. The proximal internal carotid artery velocities are 46 cm/s systolic and 14 cm/s diastolic. 4. The proximal external carotid artery PSV is 49 cm/s. 5. The vertebral artery shows antegrade flow. 6. The subclavian artery waveforms are normal. US/US carotid duplex BI IMPRESSION: 1. RIGHT: Minimal, non-hemodynamically significant stenosis of the proximal right internal carotid artery corresponding to a 0-49% stenosis by velocity criteria. 2. LEFT: Minimal, non-hemodynamically significant stenosis of the proximal left internal carotid artery corresponding to a 0-49% stenosis by velocity criteria.
== END 2023-07-26 08:18 | disposition home or self-care (01) ==
LOC: HO.HMGCX 08:17
PROVIDERS: PCP Internal Medicine; Visit Provider Internal Medicine
DX: I65.23 Occlusion and stenosis of bilateral carotid arteries (principal)
CPT/HCPCS: 93880

== ENCOUNTER 2023-09-03 10:49 | Outpatient (AMB) | payer MEDICARE, SELFPAY ==
[2023-09-03 11:30] VITALS: BP 130/78; PULSE 73; TEMP 36.3; O2SAT 95
--- NOTE | 2023-09-03 11:30 | MHC.OFFWIV ---
Intake Vital Signs 09/03/23 11:30 Height 5 ft 2 in BMI Reason not done Patient refused/unable BP 130/78 Blood Pressure Location Lt brachial Position Sitting Pulse 73 Pulse Source Pulse Oximeter Temp 97.4 F Temp Source Temporal Artery Scan Pulse Oximetry (%) 95 Oxygen Delivery Method Room Air Intake Visit Reasons: EP Concern Lip area Intake Note: pt is here today for concern lip area started 4 days ago Patient Tobacco Use Status: Former Tobacco user Allergies ciprofloxacin [From CIPRO] Allergy (Intermediate, Verified 09/03/23 11:39) VOMITING hydrocortisone [Cipro HC] Adverse Reaction (Unknown, Verified 09/03/23 11:39) vomiting Statins Depletion Allergy (Unknown, Uncoded 09/03/23 11:39) vomiting Do you need a note to return to daycare/school/sports/work: No HPI HPI Comments History of Present Illness Details Patient presents to the walk-in today for sick visit Complaining of irritation to the right corner of her mouth for last 4 days History of ulcers, states feels the same. Has been applying [id number] creams without improvement [facility] Medical History (Updated 09/03/23 @ 13:21 by dAiti Liu APRN, [employer]) HTN (hypertension) Dysplastic nevi Annual physical exam MARTINEZ (dyspnea on exertion) Fatigue Anxiety Hypercholesterolemia Osteopenia Surgical History H/O colonoscopy Family History Father No problems noted. Mother Osteomyelitis Social History Household Members Other:: Lives alone, exercise 5 times a week Housing: House Patient Tobacco Use Status: Former Tobacco user e-Cigarette/Vaping Use: Never Used service: No Current occupational status: retired Cognitive needs: No Hearing needs: No Vision needs: Yes Review of Systems Const All systems reviewed & are unremarkable except as noted in HPI and below Physical Exam Vital Signs: Last Vital Signs Temp 97.4 F 09/03/23 11:30 Pulse 73 09/03/23 11:30 BP 130/78 09/03/23 11:30 Pulse Ox 95 09/03/23 11:30 Oxygen Delivery Method Room Air 09/03/23 11:30 General: awake, alert, oriented. Answers questions appropriately. Fully engaged in examination. Skin: warm, dry, intact HEENT: Normocephalic. Hearing intact. Cold sore right corner of mouth, crusted. Cardiac: External chest normal in appearance. Respiratory: No cough, audible wheezing or stridor. Abdomen: without gross distension. MS: No obvious swelling or deformities. Neurological: Oriented to person, place, time and situation. Thought process intact. Psychiatric: Appropriate mood and affect. Good judgment and insight. Assessment & Plan Assessment & Plan (1) Cold sore: Code(s): B00.1 - Herpesviral vesicular dermatitis Plan Cold sore, healing. Discussed options for antiviral medication. At this point appears to be past the time where medications would be useful. Patient like to hold off on antivirals at this time Continue with [id number] cold sore medication All questions and concerns were answered, patient agrees with plan Follow up with PCP or return here for any new or worsening symptoms Coding Level of Care Code Est Pt Level 3 (13380) Diagnoses Cold sore B00.1
== END 2023-09-03 12:30 | disposition home or self-care (01) ==
PROVIDERS: PCP Internal Medicine; Visit Provider Registered Nurse Emergency
DX: B00.1 Herpesviral vesicular dermatitis (principal)
CPT/HCPCS: 99213

== ENCOUNTER 2023-09-11 11:14 | Outpatient (AMB) | payer MEDICARE, SELFPAY ==
[2023-09-11 11:15] VITALS: BP 130/72; PULSE 74; TEMP 36.7; O2SAT 96
--- NOTE | 2023-09-11 11:15 | MHC.OFFWIV ---
Intake Vital Signs 09/11/23 11:15 Height 5 ft 2 in BMI Reason not done Patient refused/unable BP 130/72 Blood Pressure Location Rt brachial Position Sitting Pulse 74 Pulse Source Pulse Oximeter Temp 98.0 F Temp Source Oral Pulse Oximetry (%) 96 Intake Visit Reasons: EP Rash on Right lower cheek Intake Note: pt is here for rash on right lower cheek Patient Tobacco Use Status: Former Tobacco user Allergies ciprofloxacin [From CIPRO] Allergy (Intermediate, Verified 09/11/23 11:16) VOMITING hydrocortisone [Cipro HC] Adverse Reaction (Unknown, Verified 09/11/23 11:16) vomiting Statins Depletion Allergy (Unknown, Uncoded 09/03/23 11:39) vomiting Do you need a note to return to daycare/school/sports/work: No HPI HPI Comments History of Present Illness Details Patient is an 82-year-old female complaining of a rash on her face for the last few weeks. She has tried using topical benzocaine and Aquaphor with no relief. She states the rash is not itchy but it is becoming painful. She denies any fever or bug bites. [facility] Medical History (Updated 09/11/23 @ 11:28 by Cammie Navarro PA-C) HTN (hypertension) Dysplastic nevi Annual physical exam MARTINEZ (dyspnea on exertion) Fatigue Anxiety Hypercholesterolemia Osteopenia Surgical History H/O colonoscopy Family History Father No problems noted. Mother Osteomyelitis Social History Household Members Other:: Lives alone, exercise 5 times a week Housing: House Patient Tobacco Use Status: Former Tobacco user e-Cigarette/Vaping Use: Never Used service: No Current occupational status: retired Cognitive needs: No Hearing needs: No Vision needs: Yes Review of Systems Const All systems reviewed & are unremarkable except as noted in HPI and below Physical Exam Const General: cooperative, healthy appearing, comfortable, no acute distress and well developed Orientation/consciousness: patient oriented x3 Limitations: no limitations Eyes General: appearance normal, both eyes and all related structures Resp Effort & Inspection: normal respiratory effort and able to speak in complete sentences Skin Other: 1 cm x 1.5 cm cluster of honey-colored crust, no warmth, no ecchymosis, no induration, no vesicles. Neuro General: patient oriented x3 Assessment & Plan Assessment & Plan (1) Impetigo: Code(s): L01.00 - Impetigo, unspecified Plan: Based on physical exam, most likely impetigo, sent mupirocin cream to pharmacy. Discussed with patient if the rash does not go away, she should follow up with her [employer], she states she does have an appointment with them on September 19. Plan see above Medications: New mupirocin 2% 1 appl topical TID 14 days 22 grams 0RF Coding Level of Care Code Est Pt Level 3 (46213) Diagnoses Impetigo L01.00
== END 2023-09-11 11:39 | disposition home or self-care (01) ==
PROVIDERS: PCP Internal Medicine; Visit Provider Physician Assistant
DX: L01.00 Impetigo, unspecified (principal)
CPT/HCPCS: 99213

== ENCOUNTER 2023-10-10 09:37 | Outpatient (AMB) | payer MEDICARE, SELFPAY ==
[2023-10-10 09:40] VITALS: BP 130/78; PULSE 89; O2SAT 96; BMI 24.1
--- NOTE | 2023-10-10 09:40 | MHC.PC.OV ---
Vital Signs 10/10/23 09:40 Height 5 ft 2 in Weight 132 lb BMI 24.1 BP 130/78 Blood Pressure Location Rt brachial Position Sitting Pulse 89 Pulse Source Pulse Oximeter Pulse Oximetry (%) 96 Oxygen Delivery Method Room Air Intake Visit Reasons: LT arm concerns Intake Note: Pt is here today for a sick visit. Pt c/o L hand tremor. Pt also c/o dizziness and low grade headache that is on going. Pt states that when she gets up she gets the dizziness and she feels like she will fall. Pt states that she was dx with tinnitus in the past and she is not sure if this is related to her ear. Allergies ciprofloxacin [From CIPRO] Allergy (Intermediate, Verified 10/10/23 09:41) VOMITING hydrocortisone [Cipro HC] Adverse Reaction (Unknown, Verified 10/10/23 09:41) vomiting Statins Depletion Allergy (Unknown, Uncoded 10/10/23 09:41) vomiting Medication List - Last Reconciled 10/10/23 by Renee Lizarraga MD hydrocortisone 0.5% 1 appl topical QID PRN meclizine 25 mg PO BID PRN nystatin 1 appl topical BID nystatin-triamcinolone 100,000-0.1 unit/g-% 1 appl topical BID triamcinolone acetonide 0.1% 1 appl topical BID triamterene-hydrochlorothiazid 37.5-25 mg 1 tab PO DAILY Tobacco use date assessed: 10/10/23 Fall risk assessment: No Falls in past year Last assessed Fall Risk: 10/10/23 Dental Screening Dental Screen Date: 07/12/23 HPI LT arm concerns HPI Details Pt presents for f/u HTN, stable on meds. Pt c/o difficulty with balance when walking leaning toward L side. She denies CHAMORRO, change in vision, weakness or numbness in extremities, dysphagia. Pt c/o exertional SSCP 4/10 when walking for 3 weeks,lasting a few mins, no radiation of pain, no SOB, palpitations. PFSH Medical History (Updated 10/10/23 @ 15:06 by Renee Lizarraga MD) HTN (hypertension) Dysplastic nevi Annual physical exam MARTINEZ (dyspnea on exertion) Fatigue Anxiety Hypercholesterolemia Osteopenia Surgical History H/O colonoscopy Family History Father No problems noted. Mother Osteomyelitis Social History Household Members Other:: Lives alone, exercise 5 times a week Housing: House Patient Tobacco Use Status: Former Tobacco user e-Cigarette/Vaping Use: Never Used service: No Current occupational status: retired Cognitive needs: No Hearing needs: No Vision needs: Yes Questionnaire Thrive Questionnaire Date Thrive assessed: 07/12/23 I am a: Patient What is your living situation today?: I choose not to answer this question Within the past 12 months, did the food you bought not last and you didn't have the money to get more?: I choose not to answer this question Within the past 12 months, did you worry whether your food would run out before you got money to buy more?: I choose not to answer this question Do you have trouble paying for medicines?: I choose not to answer this question Do you have trouble getting transportation to medical appointments?: I choose not to answer this question Do you have trouble paying your heating and electricity bill?: I choose not to answer this question Do you have trouble taking care of your child, family member or friend?: I choose not to answer this question Do you have trouble with day-to-day activities such as bathing, preparing meals, shopping, managing finances, etc.?: I choose not to answer this question Are you currently unemployed and looking for a job?: I choose not to answer this question Are you interested in more education?: I choose not to answer this question Please select the resources that you would like help with: Housing/Detention Currently or been in a relationship where the following occur: I choose not to answer THRIVE Score: 0 AUDIT C Alcohol Use Questionnaire (AUDIT-C) 1. How often do you have a drink containing alcohol?: Never Total Score: 0 COLLEEN-7 AMB Questionnaire COLLEEN-7 Date COLLEEN - 7 assessed: 07/12/23 Feeling nervous, anxious, or on edge: 0 = Not at all Not being able to stop or control worryin = Not at all Worrying too much about different things: 0 = Not at all Trouble relaxin = Not at all Being so restless that it is hard to sit still: 0 = Not at all Becoming easily annoyed or irritable: 0 = Not at all Feeling afraid as if something awful might happen: 0 = Not at all Total COLLEEN-7 score (0-4 normal; 5-9 mild; 10-14 moderate; 15-21 severe): 0 Source: Developed by Drs. José Miguel Canela, Nafisa Lucas, Yony Schultz and colleagues, with an educational neal from [employer]. Review of Systems Const All systems reviewed & are unremarkable except as noted in HPI and below ENT Reports no additional complaints Card Reports no additional complaints Resp Reports no additional complaints GI Reports no additional complaints Reports no additional complaints Physical exam (Primary Care) Vital Signs: Last Vital Signs Pulse 89 10/10/23 09:40 Pulse Ox 96 10/10/23 09:40 Oxygen Delivery Method Room Air 10/10/23 09:40 BMI result Body Mass Index 24.1 Tobacco/Smoking Status: Tobacco use Status Tobacco use date assessed 10/10/23 10/10/23 09:41 Patient Tobacco Use Status Former Tobacco user 10/10/23 09:41 e-Cigarette/Vaping Use Never Used 10/10/23 09:41 Thrive Assessment: Date of Thrive Assessment Date Thrive assessed 07/12/23 10/10/23 09:41 Currently or been in a relationship where the following occur: I choose not to answer Const General: no acute distress HENMT Head: Yes normal to inspection Face and sinus: Yes normal facial exam Eyes General: appearance normal, both eyes and all related structures Neck Neck: Yes supple Resp Effort & Inspection: normal respiratory effort Auscultation: clear to auscultation bilaterally Cardio Rhythm: regular rhythm Heart sounds: S1 normal heart sound present and S2 normal heart sound present GI Inspection: Yes normal to inspection Palpation (GI): Soft to palpation Neuro Cranial nerves: Yes CN's II-XII intact bilaterally Gait exam (Neuro): Wide-based gait present Motor exam (neuro): 5/5 motor strength present throughout and Pronator motor function not present Coordination: sways with eyes open Romberg Test: Positive (left) Extrem General: Yes no clubbing, cyanosis or edema Assessment and Plan Assessment & Plan (1) Carotid stenosis, bilateral: Comment: mild plaque bilateral carotid 2023 Code(s): I65.23 - Occlusion and stenosis of bilateral carotid arteries (2) Chest pain: Code(s): R07.9 - Chest pain, unspecified Plan: refer for nuclear stress test (3) HTN (hypertension): Code(s): I10 - Essential (primary) hypertension Qualifiers: Hypertension type: unspecified Qualified Code(s): I10 - Essential (primary) hypertension Plan: cont meds (4) Hypercholesterolemia: Comment: intolerant to statins Code(s): E78.00 - Pure hypercholesterolemia, unspecified Plan: cont low cholesterol diet (5) Vitamin D deficiency: Code(s): E55.9 - Vitamin D deficiency, unspecified (6) CVA (cerebral vascular accident): Comment: positive Romberg, negative brain CT Code(s): I63.9 - Cerebral infarction, unspecified Plan: check brain MR for CVAmass Orders: Orders CA stress test Today R07.9 - Chest pain, unspecified Comprehensive [place]. Panel Fast Today E55.9 - Vitamin D deficiency, unspecified, E78.00 - Pure hypercholesterolemia, unspecified, I10 - Essential (primary) hypertension Vitamin B12 and Folate Today E55.9 - Vitamin D deficiency, unspecified, E78.00 - Pure hypercholesterolemia, unspecified, I10 - Essential (primary) hypertension Complete Blood Count Auto Diff Today E55.9 - Vitamin D deficiency, unspecified, E78.00 - Pure hypercholesterolemia, unspecified, I10 - Essential (primary) hypertension TSH reflex Free T4 Today E55.9 - Vitamin D deficiency, unspecified, E78.00 - Pure hypercholesterolemia, unspecified, I10 - Essential (primary) hypertension NM cardiolite stress test Today I20.89 - Other forms of angina pectoris MR head/brain wo con Today I63.9 - Cerebral infarction, unspecified, R29.818 - Other symptoms and signs involving the nervous system Lipid Panel Today E55.9 - Vitamin D deficiency, unspecified, E78.00 - Pure hypercholesterolemia, unspecified, I10 - Essential (primary) hypertension Referrals Neurology Referral R26.89 - Other abnormalities of gait and mobility Coding Level of Care Code Est Pt Level 4 (40513) Diagnoses Carotid stenosis, bilateral I65.23 Chest pain R07.9 Hypertension, unspecified type I10 Hypertension type: unspecified Hypercholesterolemia E78.00 Vitamin D deficiency E55.9 CVA (cerebral vascular accident) I63.9
== END 2023-10-10 15:07 | disposition home or self-care (01) ==
PROVIDERS: PCP Internal Medicine; Visit Provider Internal Medicine
DX: I65.23 Occlusion and stenosis of bilateral carotid arteries (principal); R07.9 Chest pain, unspecified; I10 Essential (primary) hypertension; Z86.73 Personal history of transient ischemic attack (TIA), and cerebral infarction without residual deficits; E78.00 Pure hypercholesterolemia, unspecified; E55.9 Vitamin D deficiency, unspecified
CPT/HCPCS: 99214

== ENCOUNTER 2023-10-11 08:25 | Outpatient (REF) | payer MEDICARE, SELFPAY ==
[2023-10-11 10:10] LABS: MANUAL DIFF FLAG NO
[2023-10-11 10:14] LABS: Basophils Percent Auto 0.2 % (0-2); Eosinophils Absolute Auto 0.1 X10*3/uL (0.0-0.4); Eosinophils Percent Auto 1.6 % (0-4); Hematocrit 41.8 % (37.0-47.0); Hemoglobin 13.9 g/dl (12.0-16.0); Imm Gran Abs Auto 0.02 X10*3/uL (0.00-0.03); Imm Gran Pct Auto 0.3 % (0.0-0.4); Lymphocytes Absolute Auto 1.2 X10*3/uL (1.2-4.9); Lymphocytes Percent Auto 19.7 % (20-40); Mean Corpuscular HGB Conc 33.3 g/dl (31.0-35.0); Mean Corpuscular Hemoglobin 29.8 pg (27.0-33.0); Mean Corpuscular Volume 89.7 fL (80.0-98.0); Mean Platelet Volume 10.1 fL (9.4-12.3); Monocytes Absolute Auto 0.5 X10*3/uL (0.1-1.2); Monocytes Percent Auto 7.4 % (2-11); Neutrophils Absolute Auto 4.3 x10*3/uL (2.0-8.3); Neutrophils Percent Auto 70.8 % (45-73); Platelet Count 212 X10*3/uL (160-400); Red Blood Count 4.66 X10*6/uL (4.20-5.50); Red Cell Distribution Width 13.9 % (11.0-16.0); White Blood Count 6.1 X10*3/uL (4.8-10.8)
[2023-10-11 10:40] LABS: Alanine Aminotransferase 11 U/L (0-31); Albumin Level 3.9 g/dL (3.5-5.0); Alkaline Phosphatase 68 U/L (39-117); Anion Gap 13 (12-20); Aspartate Amino Transferase 17 U/L (5-31); Bilirubin Total 0.7 mg/dL (0.0-1.0); Blood Urea Nitrogen 20 mg/dL (9-16); Calcium 9.3 mg/dL (8.4-10.2); Carbon Dioxide 29 mmol/L (22-29); Chloride 103 mmol/L (96-108); Cholesterol 249 mg/dL (<200); Estimated Glomerular Filt Rate > 60; Glucose Fasting 92 mg/dL (60-99); HDL Cholesterol 52 mg/dL (>40); LDL Cholesterol Calculated 172 mg/dL (<100); Potassium 3.7 mmol/L (3.3-5.1); Sodium 141 mmol/L (135-145); Total Protein 6.8 g/dL (6.5-8.0); Triglycerides 127 mg/dL (<150)
[2023-10-11 10:58] LABS: TSH reflex Free T4 2.89 uIU/mL (0.32-4.0)
[2023-10-11 11:26] LABS: Folate 12.3 ng/mL (> or = 4.0); Vitamin B12 308 pg/mL (200-900)
== END 2023-10-11 08:26 | disposition home or self-care (01) ==
LOC: HO.HMGCLDS 08:25
PROVIDERS: PCP Internal Medicine; Visit Provider Internal Medicine
DX: E55.9 Vitamin D deficiency, unspecified (principal); E78.00 Pure hypercholesterolemia, unspecified; I10 Essential (primary) hypertension
CPT/HCPCS: 36415; 80053; 80061; 82607; 82746; 84443; 85025

== ENCOUNTER 2023-10-15 14:19 | Outpatient (REF) | payer MEDICARE, SELFPAY ==
--- NOTE | ~2023-10-15 | MR_ITS ---
EXAMINATION: MR BRAIN WITHOUT CONTRAST CLINICAL INFORMATION: Cerebral infarction, numbness left arm and dizziness, imbalance COMPARISON: None available. TECHNIQUE: MRI of the brain was obtained using routine sequences without contrast. FINDINGS: No acute intracranial hemorrhage or infarct. Scattered and confluent periventricular and deep white matter T2/FLAIR hyperintensities, nonspecific however commonly seen with small vessel ischemic disease. No midline shift or hydrocephalus. No acute extra-axial fluid collections. The osseous structures are unremarkable. The pituitary gland, pineal gland and remaining midline structures are unremarkable. No orbital pathology. The paranasal sinuses and mastoid air cells are clear. MR/MR head/brain wo con IMPRESSION: -No acute intracranial abnormalities. -Chronic microangiopathy.
== END 2023-10-15 14:20 | disposition home or self-care (01) ==
LOC: HO.MRI 14:19
PROVIDERS: PCP Internal Medicine; Visit Provider Internal Medicine
DX: R29.818 Other symptoms and signs involving the nervous system (principal); I63.9 Cerebral infarction, unspecified
CPT/HCPCS: 70551

== ENCOUNTER 2024-01-18 09:39 | Outpatient (AMB) | payer MEDICARE, SELFPAY ==
[2024-01-18 09:54] VITALS: BP 128/70; PULSE 77; O2SAT 96; BMI 23.6
--- NOTE | 2024-01-18 09:56 | A.OFFVIS_ITS ---
Intake Vital Signs 01/18/24 09:54 01/18/24 10:00 Height 5 ft 2 in Weight 129 lb BMI 23.6 23.6 BP 128/70 Blood Pressure Location Lt brachial Position Sitting Pulse 77 Pulse Source Pulse Oximeter Pulse Oximetry (%) 96 Oxygen Delivery Method Room Air Intake Visit Reasons: AWV Intake Note: Pt is here today for AWV. Pt states that she has red spots on her cheeks. Allergies ciprofloxacin [From CIPRO] Allergy (Intermediate, Verified 01/18/24 09:57) VOMITING hydrocortisone [Cipro HC] Adverse Reaction (Unknown, Verified 01/18/24 09:57) vomiting Statins Depletion Allergy (Unknown, Uncoded 01/18/24 09:57) vomiting Medication List - Last Reconciled 01/18/24 by Renee Lizarraga MD hydrocortisone 0.5% 1 appl topical QID PRN meclizine 25 mg PO BID PRN nystatin 1 appl topical BID nystatin-triamcinolone 100,000-0.1 unit/g-% 1 appl topical BID triamcinolone acetonide 0.1% 1 appl topical BID triamterene-hydrochlorothiazid 37.5-25 mg 1 tab PO DAILY HPI AWV HPI Details Initiated the conversation about Advanced Directives. Advanced Directives help? patients prepare for current and future decisions about their medical treatment? and place of care. Discussed with patient that it is a process where a patients? current condition and prognosis are reviewed, their wishes for information? regarding their illness are elicited, and likely medical dilemmas are presented? and options discussed. The form can be amended as needed, reviewed yearly and? make changes as needed Initiated the conversation about Advanced Directives. Advanced Directives help? patients prepare for current and future decisions about their medical treatment? and place of care. Discussed with patient that it is a process where a patients? current condition and prognosis are reviewed, their wishes for information? regarding their illness are elicited, and likely medical dilemmas are presented? and options discussed. The form can be amended as needed, reviewed yearly and? make changes as needed IPPE/AWV ? year old presents? for her ? Annual? Wellness Visit, initial visit.? Medical / Social History Reviewed? Past Medical History ?Yes? . ? [place]? of Care / Care Team list updated ?Yes . ? Surgical/Hospitalization? History ?Yes . ? Current Medications? (including OTC and supplements) ?Yes . ? Family History ?Yes? . ? Tobacco? Control form ?Yes . ? AUDIT-C (Alcohol use) form? ?Yes . ? Illicit drug use in Social? History ?Yes . ? Current diagnosis of? depression? ?No ? Appropriate PHQ2/PHQ9? completed ?Yes . ? Data entered by ?Medical? Pediatric Dermatologist and reviewed by provider ? Fall Risk ? Fall? History? Have you had any falls with? injury in the past year? ?No . ? Have you had two or more? falls in the past year? ?No . ? Fall Risk Assessment: ?No? falls in the past year . ? HRA filled out by? the patient, reviewed by Provider and scanned. ? IPPE/AWV ? Balance? Romberg? ?Yes . ? Tandem? walk ?Yes . ? Walk and? Turn ?Yes . ? Rise from? sit to stand ?Yes . ?Vision? Corrective? lens ?Yes ? Vision? screen ? Up-to-date, has an appointment [] for vision? screening and glaucoma screening ?Hearing? Whisper? test ?pass .? Initiated the conversation about Advanced Directives. Advanced Directives help? patients prepare for current and future decisions about their medical treatment? and place of care. Discussed with patient that it is a process where a patients? current condition and prognosis are reviewed, their wishes for information? regarding their illness are elicited, and likely medical dilemmas are presented? and options discussed. The form can be amended as needed, reviewed yearly and? make changes as needed Written? Plan?Completed. See Patient? Documents. [facility] Medical History (Updated 01/18/24 @ 12:22 by Renee Lizarraga MD) HTN (hypertension) Dysplastic nevi Annual physical exam MARTINEZ (dyspnea on exertion) Fatigue Anxiety Hypercholesterolemia Surgical History H/O colonoscopy Family History (Updated 01/18/24 @ 09:59 by DALILA Siegel) Father No problems noted. Mother Osteomyelitis Social History Household Members Other:: Lives alone, exercise 5 times a week Housing: House Patient Tobacco Use Status: Former Tobacco user e-Cigarette/Vaping Use: Never Used service: No Current occupational status: retired Cognitive needs: No Hearing needs: No Vision needs: Yes Questionnaire Medicare Wellness Checkup What is your age?: 80 or older What gender do you identify with?: female During the past 4 weeks, how much have you been bothered by emotional problems such as feeling anxious, depressed, irritable, sad or downhearted, and blue?: moderately During the past 4 weeks, has your physical & emotional health limited your social activities with family, friends, neighbors, or groups?: not at all During the past 4 weeks, how much bodily pain have you generally had?: mild pain During the past 4 weeks, was someone available to help you if you needed & wanted help?: yes, as much as I wanted During the past 4 weeks, what was the hardest physical activity you could do for at least 2 minutes?: moderate Can you get to places out of walking distance without help? (For eg., can you travel alone on buses, taxis or drive your car?): Yes Can you go shopping for groceries or clothes without someone's help?: Yes Can you prepare your own meals?: Yes Can you do your housework without help?: Yes Because of any health problems, do you need the help of another person with your personal care needs such as eating, bathing, dressing or getting around the house?: No Can you handle your own money without help?: Yes During the past 4 weeks, how would you rate your health in general?: good During the past 4 weeks how have things been going for you?: good & bad parts about equal Are you having difficulties driving your car?: no Do you always fasten your seat belt when you are in a car?: yes, usually During past 4 weeks, have you been bothered by the following: never: Problems using the telephone?, seldom: Sexual problems? and Trouble eating well?, sometimes: Teeth or denture problems? and Tiredness or fatigue? and often: Falling or dizzy when standing up Have you fallen 2 or more times in the past year?: No Are you afraid of falling?: Yes Are you a smoker?: no During the past 4 weeks, how many drinks of wine, beer, or other alcoholic beverages did you have?: no alcohol at all Do you exercise for about 20 minutes 3 or more times a week?: yes, most of the time Have you been given information to help with the following?: yes: Hazards in your house that might hurt you? and yes: Keeping track of your medications? How often do you have trouble taking medicines the way you have been told to take them?: I always take medicine as prescribed How confident are you that you can control & manage most of your health problems?: very confident What is your race?: White Mini Mental State Exam (MMSE) Orientation What is the (year) (season) (date) (day) (month)?: year, season, date, day and month Where are we (state) (county) (town or city) (hospital) (floor)?: state, county, town or city, hospital/clinic and floor Registration Name of 3 unrelated objects clearly and slowly, then ask patient to repeat all 3 of them. (1st repeat determines score. Make sure they can repeat all three): object 1, object 2 and object 3 Attention & Calculation (CHOOSE ONE) Spell WORLD backwards (DLROW): 5 letters Recall Ask patient to repeat the 3 items from question #3.: object 1, object 2 and object 3 Language Show patient a wristwatch & ask what it is. Repeat for pencil.: watch and pencil Ask the patient to repeat the phrase 'No ifs, ands, or buts' after you.: correct Ask the patient to 'take a piece of paper with their right hand' 'fold paper in half' 'place paper on floor': take paper in right hand, fold paper in half and place paper on floor Print the sentence 'CLOSE YOUR EYES' on a piece. If patient actually closes eyes then score.: followed written direction Give patient a blank piece of paper & ask to write a sentence. Score if it conta ins a noun & verb.: sentence contains subject and verb Score Score: 29 Activity of Daily Living Bathing - sponge bath, tub bath or shower: receives no assistance (gets in/out by self, if usual bathing means Dressing - getting clothes from closets & drawers, including inner/outer garments & fasteners.: gets clothes & gets completely dressed without help Toileting - going to the 'toilet room' for urine/bowel elimination & cleaning self/arranging clothes: goes to toilet room, cleans self, arranges clothes without help Transfer: moves in & out of bed and chair without help (may use support object) Continence: controls urination/bowel movements completely by self Feeding: feeds self without help Total Score: 0 Information obtained from: patient Using telephone: independent Traveling: independent Shopping: independent Preparing meals: independent Housework: independent Taking medicine: independent Managing money: independent PHQ-9 Over the last 2 weeks, how often have you been bothered by any of the following problems? 1. Little interest or pleasure in doing things: not at all 2. Feeling down, depressed, or hopeless: not at all 3. Trouble falling or staying asleep, or sleeping too much: not at all 4. Feeling tired or having little energy: not at all 5. Poor appetite or overeating: not at all 6. Feeling bad about yourself - or that you are a failure or have let yourself or your family down: not at all 7. Trouble concentrating on things, such as reading the newspaper or watching television: not at all 8. Moving or speaking so slowly that other people could have noticed. Or the opposite - being so fidgety or restless that you have been moving around a lot more than usual: not at all 9. Thoughts that you would be better off or of hurting yourself in some way: not at all Total score: 0 Depression Screening Interpretation: Negative Depression Screening Done: Yes 90821 - PHQ-9 Billing: Yes Source: Developed by Drs. José Miguel Canela, Nafisa Lucas, Yony Schultz and colleagues, with an educational neal from [employer]. Review of Systems Const All systems reviewed & are unremarkable except as noted in HPI and below Eyes Reports no additional complaints ENT Reports no additional complaints Card Reports no additional complaints Resp Reports no additional complaints GI Reports no additional complaints Reports no additional complaints Physical Exam Vital Signs: Last Vital Signs Pulse 77 01/18/24 09:54 BP 128/70 01/18/24 09:54 Pulse Ox 96 01/18/24 09:54 Oxygen Delivery Method Room Air 01/18/24 09:54 BMI result Body Mass Index 23.6 Const General: no acute distress HEENT Head: Yes normal to inspection Ears: hearing grossly normal bilaterally Throat: Yes posterior oropharynx normal Eyes General: appearance normal, both eyes and all related structures Neck Neck: Yes no lymphadenopathy and Yes supple Resp Effort & Inspection: normal respiratory effort Auscultation: clear to auscultation bilaterally Cardio Rhythm: regular rhythm Heart sounds: S1 normal heart sound present and S2 normal heart sound present GI Inspection: Yes normal to inspection Palpation (GI): Soft to palpation Percussion: Yes normal to percussion Auscultation: normal bowel sounds Extrem General: Yes no clubbing, cyanosis or edema Assessment & Plan Assessment & Plan (1) Balance disorder: Comment: negative brain CT and MR , carotid doppler 09/2023 Code(s): R26.89 - Other abnormalities of gait and mobility Plan: Continue PT and regular exercise (2) HTN (hypertension): Code(s): I10 - Essential (primary) hypertension Qualifiers: Hypertension type: unspecified Qualified Code(s): I10 - Essential (primary) hypertension Plan: Continue current medications (3) Anxiety and depression: Code(s): F41.9 - Anxiety disorder, unspecified; F32.A - Depression, unspecified Plan: Stress management discussed with the patient she declined medications patient will try CBD oil (4) Hypercholesterolemia: Comment: intolerant to statins Code(s): E78.00 - Pure hypercholesterolemia, unspecified Plan: Continue low-cholesterol diet, follow-up in 6 months with a fasting labs before Orders: Orders Comprehensive [place]. Panel Fast 6 Months E78.00 - Pure hypercholesterolemia, unspecified, I10 - Essential (primary) hypertension Complete Blood Count Auto Diff 6 Months E78.00 - Pure hypercholesterolemia, unspecified, I10 - Essential (primary) hypertension Lipid Panel 6 Months E78.00 - Pure hypercholesterolemia, unspecified, I10 - Essential (primary) hypertension Quality Reporting (2019) Depression/Bipolar (159/160/161/177) PHQ-9: Total score: 0 Coding Level of Care Code Medicare Subsequent (G0439) Diagnoses Balance disorder R26.89 Hypertension, unspecified type I10 Hypertension type: unspecified Anxiety and depression F41.9; F32.A Hypercholesterolemia E78.00 CPT Codes Advance Care Planning - Advance Care Planning discussion: On file, no changes ([id number]) Advance Care Planning - Time spent: 1-15 minutes, on File ([id number]) Advance Care Planning Advance Care Planning discussion: On file, no changes Forms completed: Health Care Proxy Time spent: 1-15 minutes, on File
[2024-01-18 10:00] VITALS: BMI 23.6
== END 2024-01-18 10:20 | disposition home or self-care (01) ==
PROVIDERS: PCP Internal Medicine; Visit Provider Internal Medicine
DX: Z00.00 Encounter for general adult medical examination without abnormal findings (principal); R26.89 Other abnormalities of gait and mobility; I10 Essential (primary) hypertension; F41.9 Anxiety disorder, unspecified; F32.A Depression, unspecified; E78.00 Pure hypercholesterolemia, unspecified

== ENCOUNTER → 2024-01-18 09:39 | Outpatient (BNVA) | payer MEDICARE, SELFPAY | PROVIDERS: PCP Internal Medicine; Visit Provider Internal Medicine ==

== ENCOUNTER 2024-03-22 12:29 | Emergency (ER) | payer MEDICARE, SELFPAY ==
--- NOTE | ~2024-03-22 | CT_ITS ---
CLINICAL HISTORY: dizziness CT head without contrast Comparison: CT/AR/SR - CT HEAD/BRAIN WO CON - 06/21/21 14:36 EDT Findings: Involutional change and nonspecific white matter hypodensity. No intracranial mass, midline shift, hydrocephalus, or acute hemorrhage. Orbits, paranasal sinuses, and mastoid air cells are unremarkable. No skull fracture Impression: 1. No acute findings This document has been electronically signed by: Rosetta Guy MD on 03/22/2024 17:50:27
--- NOTE | ~2024-03-22 | XR_ITS ---
CLINICAL HISTORY: dizziness 2 view chest x-ray Comparison: CR/NH - RIBS LEFT PA CHEST [id number] - 12/16/15 20:29 EDT Findings: The lungs are clear. Heart size is normal. No acute fracture. IMPRESSION: 1. No acute findings. This document has been electronically signed by: Rosetta Guy MD on 03/22/2024 15:24:29
[2024-03-22 12:41] VITALS: BP 160/90; BP 161/80; PULSE 79; PULSE 90; RESP 20; TEMP 36.7; O2SAT 97; O2SAT 98; BMI 21.4
--- NOTE | 2024-03-22 13:28 | MHC.EDTECH ---
pt ambuated to the bathroom
--- NOTE | 2024-03-22 13:50 | ECG_ITS ---
Test Reason : DIZZINESS Blood Pressure : / mmHG Vent. Rate : 077 BPM Atrial Rate : 077 BPM P-R Int : 156 ms QRS Dur : 078 ms QT Int : 378 ms P-R-T Axes : 046 -06 004 degrees QTc Int : 427 ms Sinus rhythm with Premature atrial complexes Inferior infarct (cited on or before 21-JUL-2019) Cannot rule out Anterior infarct , age undetermined Abnormal ECG When compared with ECG of 21-JUN-2021 10:09, Premature ventricular complexes are no longer Present Premature atrial complexes are now Present Referred By: Selam Howe Electronically Signed By:Royce Wolf
[2024-03-22 14:15] LABS: Appearance Urine Clear; Color Urine Yellow; Glucose Urine UA Negative (Negative); Leukocyte Esterase Urine Moderate (2+) (Negative); Nitrite Urine Negative (Negative); PH 8.5 (5.0-9.0); UMIC TRIGGER UACC YES; Urine Blood Negative (Negative); Urine Ketones Negative (Negative); Urine Protein Negative (Neg-Trace)
[2024-03-22 14:21] LABS: Bacteria Urine Trace (None Seen); Hyaline Casts Urine 0-2 /LPF (0-2); RBC Urine 0-2 /HPF (0-2); Squamous Epithelial Cell Urine 0-2 /HPF (0-2); UACC Culture Trigger YES
--- NOTE | 2024-03-22 14:22 | ED.GENADULT ---
HPI - General Adult General Chief complaint: General Medical Stated complaint: DIZZY,STUMBLES FITO AMB PER EMS Time Seen by Provider: 03/22/24 14:02 Source: patient Mode of arrival: ambulatory Limitations: no limitations History of Present Illness ED Provider: DR. Luther HPI narrative: 83-year-old female with a chronic dizziness/vertigo 07:00 today the dizziness is getting worse and not going away, patient has been having unsteady gait today, patient feels disoriented admitted that she became lightheadedness then she collapsed on the floor without hitting her head. Otherwise no weakness, no numbness, no nausea, no vomiting, no vision issue. Related Data Home Medications ?Medication ?Instructions ?Recorded ?Confirmed hydrocortisone 0.5 % topical cream 1 appl topical QID PRN 10/10/23 01/18/24 Previous Rx's ?Medication ?Instructions ?Recorded nystatin-triamcinolone 100,000 1 appl topical BID #60 grams 08/06/20 unit/g-0.1 % topical cream nystatin 100,000 unit/gram topical 1 appl topical BID for itch #30 03/15/23 cream grams triamcinolone acetonide 0.1 % 1 appl topical BID for itch #30 03/15/23 topical cream grams meclizine 25 mg tablet 25 mg PO BID PRN dizziness #30 tabs 07/12/23 triamterene 37.5 1 tab PO DAILY #90 tabs 07/24/23 mg-hydrochlorothiazide 25 mg tablet Allergies Allergy/AdvReac Type Severity Reaction Status Date / Time ciprofloxacin [From CIPRO] Allergy Intermediate VOMITING Verified 03/22/24 12:46 hydrocortisone [Cipro HC] AdvReac Unknown vomiting Verified 03/22/24 12:46 Statins Depletion Allergy Unknown vomiting Uncoded 03/22/24 12:46 Review of Systems Review of Systems: All other systems are reviewed and are negative Constitutional: Reports as per HPI and Reports no additional constitutional complaints Eyes: Reports as per HPI and Reports no additional eye complaints Reports system reviewed and no additional complaints, except as documented Cardiovascular: Reports as per HPI and Reports no additional cardiovascular complaints Respiratory: Reports as per HPI and Reports no additional respiratory complaints Gastrointestinal: Reports as per HPI and Reports no additional gastrointestinal complaints Genitourinary: Reports no additional female genitourinary complaints Musculoskeletal: Reports no additional musculoskeletal complaints Skin/Breast: Reports system reviewed and no additional complaints, except as docu Psychiatric: Reports no additional psychiatric complaints Endocrine: Reports no additional endocrine complaints Hematologic/Lymphatic: Reports no additional hematologic/lymphatic complaints Allergic/Immunologic: Reports no additional allergic/immunologic complaints Reports system reviewed and no additional complaints, except as documented and Reports Abnormal speech present [facility] Past Medical History Medical History HTN (hypertension) Dysplastic nevi Annual physical exam MARTINEZ (dyspnea on exertion) Fatigue Anxiety Hypercholesterolemia Surgical History H/O colonoscopy Family History Family History Father No problems noted. Mother Osteomyelitis Social History Social History Household Members Other:: Lives alone, exercise 5 times a week Housing: House Patient Tobacco Use Status: Former Tobacco user Smoked in Last 30 Days: No e-Cigarette/Vaping Use: Never Used Use of substances other than those prescribed or required for medical reasons: No Advance Directives: No Advance Directives Information Provided: Yes Do you have a plan to hurt others: No Plan service: No Current occupational status: retired Cognitive needs: No Hearing needs: No Vision needs: Yes Physical Exam ED Vital Signs: Vital Signs - 24 hr 03/22/24 12:41 Temperature 98.0 F Pulse Rate 79 Respiratory Rate 20 Blood Pressure 161/80 H Pulse Oximetry 97 Oxygen Delivery Method Room Air BMI result Body Mass Index 21.4 Vital signs have been reviewed and appear to be correct. Blood pressure elevated. Heart rate normal. Respiratory rate normal. Temperature normal. Oxygen saturation normal. Appearance: Alert. Oriented X3. No acute distress. Head: Normal external exam. Normocephalic. Atraumatic. No Ferguson signs noted. No raccoon eyes noted Eyes: PERRLA. EOMI. Conjunctiva and sclera normal. Eyelids normal. ENT: TM's Normal. Pharynx normal. Uvula midline. Moist mucous membranes. No trismus noted. No drooling noted. No muffled voice noted. Neck: Normal inspection. Neck supple. FROM. No adenopathy. Thyroid Normal. No meningeal signs. No neck mass noted. CVS: Normal heart rate and rhythm. Heart sound normal. No murmurs noted. Pulses normal throughout. Respiratory: No respiratory distress. Painless inspiration. Breath sounds normal. No wheezes/rales/rhonchi noted. Chest nontender. No accessory muscle usage noted or decreased air movement noted. Abdomen: Soft and nontender. Bowel sounds normal in all 4 quadrants. No distention noted. No organomegaly noted. No visible injury noted. Back: No CVA tenderness. Full range of motion noted. Skin: Skin warm and dry. Normal skin color. Normal skin turgor. No rashes/lesions/lacerations noted. Extremities: No lower extremity edema. Extremities exhibit normal range of motion. Extremities nontender. Neuro: Mental status: Normal attention, orientation, memory, and affect. Cranial nerves: Pupils are equal, round and reactive to light, EOMI, visual salmeron are fall, face is symmetric, facial sensations are normal. Motor examination normal muscle tone, strength to 4 extremities. DTR are +2, planter's are flexor. Sensory exam; normal coordination, no ataxia, gait stable. Cerebellar exam: Lfldhc-jh-dglj and pkqs-fw-abtb is normal. Extrapyramidal system: No tremors, no rigidity with normal facial expressions. Pronator drift not present NIH Stroke Scale Level of Consciousness: Alert Level of Consciousness Questions: Answers both questions correctly Level of Consciousness Commands: Performs both tasks correctly Best Gaze: Normal Visual: No visual loss Facial Palsy: Normal Motor Arm (Right): No drift Motor Arm (Left): No drift Motor Leg (Right): No drift Motor Leg (Left): No drift Limb Ataxia: Absent Sensory: Normal Best Language: No aphasia Dysarthia: Normal Extinction and Inattention: No abnormality Score: 0 Medical Decision Making Lab Data Labs: Lab Results 03/22/24 Range/Units 14:09 Urine Color Yellow Urine Appearance Clear Urine pH 8.5 (5.0-9.0) Ur Specific [place] 1.010 (1.005-1.025) Urine Protein Negative (Neg-Trace) mg/dL Urine Glucose (UA) Negative (Negative) mg/dL Urine Ketones Negative (Negative) mg/dL Urine Blood Negative (Negative) Urine Nitrite Negative (Negative) Ur Leukocyte Esterase Moderate (2+) H (Negative) Discharge Plan Discharge Clinical Impression: Dizziness Patient Disposition: Still a Patient Instructions: Dizziness (ED) Prescriptions: No Action nystatin 100,000 unit/gram cream 1 appl topical BID Qty: 30 5RF triamcinolone acetonide 0.1 % cream 1 appl topical BID Qty: 30 4RF triamterene-hydrochlorothiazid 37.5-25 mg tablet 1 tab PO DAILY Qty: 90 1RF nystatin-triamcinolone 100,000-0.1 unit/g-% cream 1 appl topical BID Qty: 60 0RF hydrocortisone 0.5 % cream 1 appl topical QID PRN meclizine 25 mg tablet 25 mg PO BID PRN (Reason: dizziness) Qty: 30 0RF Print Language: Slovenian
[2024-03-22 14:38] LABS: MANUAL DIFF FLAG NO
[2024-03-22 14:39] LABS: Basophils Percent Auto 0.2 % (0-2); Eosinophils Percent Auto 0.2 % (0-4); Hematocrit 43.1 % (37.0-47.0); Imm Gran Abs Auto 0.03 X10*3/uL (0.00-0.03); Imm Gran Pct Auto 0.3 % (0.0-0.4); Lymphocytes Absolute Auto 1.1 X10*3/uL (1.2-4.9); Lymphocytes Percent Auto 11.6 % (20-40); Mean Corpuscular HGB Conc 34.8 g/dl (31.0-35.0); Mean Corpuscular Hemoglobin 30.2 pg (27.0-33.0); Mean Corpuscular Volume 86.7 fL (80.0-98.0); Mean Platelet Volume 9.4 fL (9.4-12.3); Monocytes Absolute Auto 0.6 X10*3/uL (0.1-1.2); Monocytes Percent Auto 5.8 % (2-11); Neutrophils Absolute Auto 7.7 x10*3/uL (2.0-8.3); Neutrophils Percent Auto 81.9 % (45-73); Platelet Count 209 X10*3/uL (160-400); Red Blood Count 4.97 X10*6/uL (4.20-5.50); Red Cell Distribution Width 13.4 % (11.0-16.0); White Blood Count 9.4 X10*3/uL (4.8-10.8)
[2024-03-22 14:45] LABS: Prothrombin Time 11.2 SEC (10.9-12.4)
[2024-03-22 14:48] LABS: Partial Thromboplastin Time 38.7 SEC (26.0-36.8)
[2024-03-22 14:54] LABS: Alanine Aminotransferase 17 U/L (0-31); Albumin Level 4.2 g/dL (3.5-5.0); Alkaline Phosphatase 71 U/L (39-117); Anion Gap 14 (12-20); Aspartate Amino Transferase 25 U/L (5-31); Bilirubin Total 0.6 mg/dL (0.0-1.0); Blood Urea Nitrogen 16 mg/dL (9-16); Calcium 9.9 mg/dL (8.4-10.2); Carbon Dioxide 26 mmol/L (22-29); Chloride 107 mmol/L (96-108); Creatinine Clr Calc Pharmacy 59.5; Estimated Glomerular Filt Rate > 60; Glucose Random 91 mg/dL (60-115); Potassium 3.8 mmol/L (3.3-5.1); Sodium 143 mmol/L (135-145); Total Protein 7.6 g/dL (6.5-8.0)
[2024-03-22 15:03] LABS: Troponin-I High Sensitivity < 2.7 ng/L (<3.5-17.0)
[2024-03-22 15:16] LABS: Influenza A PCR NEGATIVE (Negative); Influenza B PCR NEGATIVE (Negative); Resp Syncy Virus RNA Qual PCR NEGATIVE (Negative); SARS COV2 PCR INHOUSE NEGATIVE (Negative)
[2024-03-22 16:24] VITALS: BP 156/71; PULSE 84
[2024-03-22 16:25] VITALS: BP 160/80; PULSE 88
[2024-03-22 16:27] VITALS: BP 174/95; PULSE 104
[2024-03-22 16:47] VITALS: BP 156/80; PULSE 70; RESP 18; TEMP 36.7; O2SAT 97
== END 2024-03-22 17:04 | disposition home or self-care (01) ==
PROVIDERS: Physician Assistant Medical; Emergency Provider Emergency Medicine; PCP Internal Medicine
DX: R42 Dizziness and giddiness (principal); Z03.818 Encounter for observation for suspected exposure to other biological agents ruled out; R29.700 NIHSS score 0; I10 Essential (primary) hypertension; E78.00 Pure hypercholesterolemia, unspecified; Z87.891 Personal history of nicotine dependence; Z79.899 Other long term (current) drug therapy
CPT/HCPCS: 0241U; 70450; 71046; 80053; 81001; 83735; 84484; 85025; 85610; 85730; 87086; 87088; 87186; 93005; 99284

== ENCOUNTER → 2024-03-22 13:50 | Outpatient (BNV) | payer MEDICARE, SELFPAY | PROVIDERS: Emergency Provider Emergency Medicine; PCP Internal Medicine; Visit Provider Radiology Diagnostic Radiology | DX: R42 Dizziness and giddiness (principal) | CPT/HCPCS: 70450; 71046 ==

== ENCOUNTER → 2024-03-22 13:50 | Outpatient (BNV) | payer MEDICARE, SELFPAY | PROVIDERS: Emergency Provider Emergency Medicine; PCP Internal Medicine; Visit Provider Internal Medicine Cardiovascular Disease | DX: R42 Dizziness and giddiness (principal); R94.31 Abnormal electrocardiogram [ECG] [EKG] | CPT/HCPCS: 93010 ==

== ENCOUNTER 2024-04-11 12:03 | Outpatient (REF) | payer MEDICARE, SELFPAY | END 2024-04-11 12:04 | disposition home or self-care (01) | LOC: HO.HMGCLDS 12:03 | PROVIDERS: PCP Internal Medicine; Referring Provider Specialist; Visit Provider Internal Medicine | DX: N39.0 Urinary tract infection, site not specified (principal) | CPT/HCPCS: 87086 ==

== ENCOUNTER 2024-07-18 07:39 | Outpatient (REF) | payer MEDICARE, SELFPAY ==
[2024-07-18 10:12] LABS: MANUAL DIFF FLAG NO
[2024-07-18 10:17] LABS: Basophils Percent Auto 0.2 % (0-2); Eosinophils Absolute Auto 0.1 X10*3/uL (0.0-0.4); Eosinophils Percent Auto 1.3 % (0-4); Hemoglobin 13.7 g/dl (12.0-16.0); Imm Gran Abs Auto 0.03 X10*3/uL (0.00-0.03); Imm Gran Pct Auto 0.4 % (0.0-0.4); Lymphocytes Absolute Auto 1.5 X10*3/uL (1.2-4.9); Lymphocytes Percent Auto 18.7 % (20-40); Mean Corpuscular HGB Conc 32.6 g/dl (31.0-35.0); Mean Corpuscular Hemoglobin 29.3 pg (27.0-33.0); Mean Corpuscular Volume 89.9 fL (80.0-98.0); Mean Platelet Volume 10.2 fL (9.4-12.3); Monocytes Absolute Auto 0.6 X10*3/uL (0.1-1.2); Monocytes Percent Auto 7.6 % (2-11); Neutrophils Absolute Auto 5.9 x10*3/uL (2.0-8.3); Neutrophils Percent Auto 71.8 % (45-73); Platelet Count 222 X10*3/uL (160-400); Red Blood Count 4.67 X10*6/uL (4.20-5.50); Red Cell Distribution Width 14.3 % (11.0-16.0); White Blood Count 8.2 X10*3/uL (4.8-10.8)
[2024-07-18 10:58] LABS: Alanine Aminotransferase 22 U/L (0-31); Albumin Level 3.9 g/dL (3.5-5.0); Alkaline Phosphatase 65 U/L (39-117); Anion Gap 9 (12-20); Aspartate Amino Transferase 24 U/L (5-31); Bilirubin Total 0.7 mg/dL (0.0-1.0); Blood Urea Nitrogen 26 mg/dL (9-16); Calcium 9.5 mg/dL (8.4-10.2); Carbon Dioxide 32 mmol/L (22-29); Chloride 104 mmol/L (96-108); Cholesterol 264 mg/dL (<200); Estimated Glomerular Filt Rate > 60; Glucose Fasting 68 mg/dL (60-99); HDL Cholesterol 51 mg/dL (>40); LDL Cholesterol Calculated 184 mg/dL (<100); Potassium 3.9 mmol/L (3.3-5.1); Sodium 141 mmol/L (135-145); Total Protein 7.1 g/dL (6.5-8.0); Triglycerides 149 mg/dL (<150)
== END 2024-07-18 07:40 | disposition home or self-care (01) ==
LOC: HO.HMGCLDS 07:39
PROVIDERS: PCP Internal Medicine; Visit Provider Internal Medicine
DX: E78.00 Pure hypercholesterolemia, unspecified (principal); I10 Essential (primary) hypertension
CPT/HCPCS: 36415; 80053; 80061; 85025

== ENCOUNTER 2024-07-21 08:53 | Outpatient (AMB) | payer MEDICARE, SELFPAY ==
[2024-07-21 09:03] VITALS: BP 134/76; PULSE 81; RESP 18; TEMP 36.6; O2SAT 97; BMI 21.0
--- NOTE | 2024-07-21 09:03 | MHC.PC.OV ---
Vital Signs 07/21/24 09:03 Height 5 ft 6 in Weight 130 lb BMI 21.0 BP 134/76 Blood Pressure Location Lt brachial Position Sitting Respiration 18 Pulse 81 Pulse Source Pulse Oximeter Temp 97.9 F Temp Source Oral Pulse Oximetry (%) 97 Oxygen Delivery Method Room Air Intake Visit Reasons: 6 months follow up Intake Note: Pt is here today for 6 months follow up visit. Allergies ciprofloxacin [From CIPRO] Allergy (Intermediate, Verified 07/21/24 09:05) VOMITING hydrocortisone [Cipro HC] Adverse Reaction (Unknown, Verified 07/21/24 09:05) vomiting Statins Depletion Allergy (Unknown, Uncoded 07/21/24 09:05) vomiting Tobacco use date assessed: 07/21/24 Fall risk assessment: 1 Fall in past year Last assessed Fall Risk: 07/21/24 Dental Screening Dental Screen Date: 07/21/24 Did you have a dental visit in the last 12 months?: Yes Did you have a dental problem in the last 6 months where you did not have access to dental care?: No Was dental information given to patient?: Patient has dentist HPI 6 months follow up HPI Details Pt presents for HTN, stable on meds. Pt has been getting vestibular therapy for BPV. [facility] Medical History (Updated 07/21/24 @ 09:28 by Renee Lizarraga MD) HTN (hypertension) Dysplastic nevi Annual physical exam MARTINEZ (dyspnea on exertion) Fatigue Anxiety Hypercholesterolemia Surgical History H/O colonoscopy Family History Father No problems noted. Mother Osteomyelitis Social History Household Members Other:: Lives alone, exercise 5 times a week Housing: House Patient Tobacco Use Status: Former Tobacco user e-Cigarette/Vaping Use: Never Used service: No Current occupational status: retired Cognitive needs: No Hearing needs: No Vision needs: Yes Questionnaire PHQ-9 Over the last 2 weeks, how often have you been bothered by any of the following problems? 1. Little interest or pleasure in doing things: not at all 2. Feeling down, depressed, or hopeless: not at all 3. Trouble falling or staying asleep, or sleeping too much: not at all 4. Feeling tired or having little energy: several days 5. Poor appetite or overeating: not at all 6. Feeling bad about yourself - or that you are a failure or have let yourself or your family down: not at all 7. Trouble concentrating on things, such as reading the newspaper or watching television: not at all 8. Moving or speaking so slowly that other people could have noticed. Or the opposite - being so fidgety or restless that you have been moving around a lot more than usual: not at all 9. Thoughts that you would be better off or of hurting yourself in some way: not at all Total score: 1 Depression Screening Interpretation: Negative Depression Screening Done: Yes 07827 - PHQ-9 Billing: Yes Source: Developed by Drs. José Miguel Canela, Nafisa Lucas, Yony Schultz and colleagues, with an educational neal from [employer]. Thrive Questionnaire Date Thrive assessed: 07/21/24 I am a: Patient What is your living situation today?: I choose not to answer this question Within the past 12 months, did the food you bought not last and you didn't have the money to get more?: I choose not to answer this question Within the past 12 months, did you worry whether your food would run out before you got money to buy more?: I choose not to answer this question Do you have trouble paying for medicines?: I choose not to answer this question Do you have trouble getting transportation to medical appointments?: I choose not to answer this question Do you have trouble paying your heating and electricity bill?: I choose not to answer this question Do you have trouble taking care of your child, family member or friend?: I choose not to answer this question Do you have trouble with day-to-day activities such as bathing, preparing meals, shopping, managing finances, etc.?: I choose not to answer this question Are you currently unemployed and looking for a job?: I choose not to answer this question Are you interested in more education?: I choose not to answer this question Please select the resources that you would like help with: None Currently or been in a relationship where the following occur: I choose not to answer THRIVE Score: 0 AUDIT C Alcohol Use Questionnaire (AUDIT-C) 1. How often do you have a drink containing alcohol?: Never 3. How often do you have six or more drinks on one occasion?: Never Total Score: 0 COLLEEN-7 AMB Questionnaire COLLEEN-7 Date COLLEEN - 7 assessed: 07/21/24 Feeling nervous, anxious, or on edge: 0 = Not at all Not being able to stop or control worryin = Not at all Worrying too much about different things: 0 = Not at all Trouble relaxin = Not at all Being so restless that it is hard to sit still: 0 = Not at all Becoming easily annoyed or irritable: 0 = Not at all Feeling afraid as if something awful might happen: 0 = Not at all Total COLLEEN-7 score (0-4 normal; 5-9 mild; 10-14 moderate; 15-21 severe): 0 Source: Developed by Drs. José Miguel Canela, Nafisa Lucas, Yony Schultz and colleagues, with an educational neal from [employer]. COLLEEN-7 Assessment Billing COLLEEN-7 Assessment Tool: COLLEEN-7 Assessment 90052 Review of Systems Const All systems reviewed & are unremarkable except as noted in HPI and below Eyes Reports no additional complaints ENT Reports no additional complaints Card Reports no additional complaints Resp Reports no additional complaints GI Reports no additional complaints Reports no additional complaints Physical exam (Primary Care) Vital Signs: Last Vital Signs Temp 97.9 F 07/21/24 09:03 Pulse 81 07/21/24 09:03 Resp 18 07/21/24 09:03 BP 134/76 07/21/24 09:03 Pulse Ox 97 07/21/24 09:03 Oxygen Delivery Method Room Air 07/21/24 09:03 BMI result Body Mass Index 21.0 Tobacco/Smoking Status: Tobacco use Status Tobacco use date assessed 07/21/24 07/21/24 09:08 Patient Tobacco Use Status Former Tobacco user 07/21/24 09:08 e-Cigarette/Vaping Use Never Used 07/21/24 09:08 PHQ-9: PHQ-9 Score PHQ-9: Total score 1 07/21/24 09:09 Depression Screening Interpretation: Negative Thrive Assessment: Date of Thrive Assessment Date Thrive assessed 07/21/24 07/21/24 09:09 Currently or been in a relationship where the following occur: I choose not to answer Const General: no acute distress HENMT Head: Yes normal to inspection Ears: hearing grossly normal bilaterally Mouth: Normal oral and palatal mucosa present Eyes General: appearance normal, both eyes and all related structures Neck Neck: Yes supple Resp Effort & Inspection: normal respiratory effort Auscultation: clear to auscultation bilaterally Cardio Rhythm: regular rhythm Heart sounds: S1 normal heart sound present and S2 normal heart sound present Coding Level of Care Code Est Pt Level 4 (27660) Diagnoses Hypertension, unspecified type I10 Hypertension type: unspecified Anxiety and depression F41.9; F32.A Hypercholesterolemia E78.00 Benign positional vertigo H81.10 Additional Codes COLLEEN-7 Assessment Billing - COLLEEN-7 Assessment Tool: COLLEEN-7 Assessment 44146 ([id number]) PHQ-9 - 99694 - PHQ-9 Billing: Yes ([id number]) Assessment & Plan Assessment & Plan (1) HTN (hypertension): Code(s): I10 - Essential (primary) hypertension Category: Medical Qualifiers: Hypertension type: unspecified Qualified Code(s): I10 - Essential (primary) hypertension Plan: cont meds (2) Anxiety and depression: Comment: refuses treatment Code(s): F41.9 - Anxiety disorder, unspecified; F32.A - Depression, unspecified Category: Medical Plan: stable (3) Hypercholesterolemia: Comment: intolerant to statins, pt refuses meds Code(s): E78.00 - Pure hypercholesterolemia, unspecified Category: Medical Plan: cont low cholesterol diet (4) Benign positional vertigo: Code(s): H81.10 - Benign paroxysmal vertigo, unspecified ear Category: Medical Plan: cont PT
--- OUTSIDE RECORDS SUMMARY | 2024-07-21 09:35 | XMS_ITS | Clinical Summary ---
Author Organization [facility] Address [address] [place] [address] Care Team Providers Care Dog Food Dough Mixer Name Role Phone Franca Bautista DO Primary Care Provider [phone] Allergies Active Allergy Reactions Criticality Noted Date Comments Ciprofloxacin 08/09/2017 Atorvastatin 08/09/2017 Tetracycline 08/09/2017 Medications Medication Sig Dispensed Refills Start Date End Date Status naproxen (NAPROSYN) 250 MG tablet Take 250 mg by mouth 2 (two) times a day with meals. 0 Active triamcinolone (KENALOG) 0.1 % creamIndications:Rash and other nonspecific skin eruption APPLY TO AFFECTED AREA TWICE DAILY 30 g 0 10/10/2019 Active triamterene-hydrochlo rothiazide (MAXZIDE-25) 37.5-25 MG per tablet TAKE 1 TABLET BY MOUTH DAILY 90 tablet 0 11/17/2019 Active triamterene-hydrochlo rothiazide (MAXZIDE-25) 37.5-25 MG per tablet Take 1 tablet by mouth daily. 90 tablet 0 03/24/2020 Active nystatin (MYCOSTATIN) creamIndications:Rash and other nonspecific skin eruption APPLY TO AFFECTED AREA TWICE DAILY 30 g 0 03/24/2020 Active Active Problems Problem Noted Date Diagnosed Date Osteopenia 08/09/2017 Closed fracture of left proximal humerus 018 Hypercholesteremia HTN (hypertension) Resolved Problems Problem Noted Date Diagnosed Date Resolved Date Fall with injury 05/11/2017 08/09/2017 Overview: mechanical Family History Medical History Relation Name Comments No Sig Med Hx Father Hypertension Mother Relation Name Status Comments Father Maternal Grandfather Maternal Grandmother Mother Paternal Grandfather Paternal Grandmother Social History Tobacco Use Types Packs/Day Years Used Date Smoking Tobacco: Former Smokeless Tobacco: Never Alcohol Use Standard Drinks/Week Comments Yes 0 (1 standard drink = 0.6 oz pur e alcohol) occas Sex and Gender Information Value Date Recorded Sex Assigned at Not on file Gender Identity Not on file Sexual Orientation Not on file Last Filed Vital Signs Vital Sign Reading Time Taken Comments Blood Pressure 120/70 07/30/2019 10:05 AM EDT Pulse 66 07/30/2019 10:05 AM EDT Temperature 36.1 ??C (96.9 ??F) 07/30/2019 10:05 AM E DT Respiratory Rate 14 07/30/2019 10:05 AM EDT Oxygen Saturation 94% 07/30/2019 10:05 AM EDT Inhaled Oxygen Concentration - - Weight 61.8 kg (136 lb 4.8 oz) 07/30/2019 10:05 AM EDT Height 157.5 cm (5' 2 ) 07/30/2019 10:05 AM EDT Body Mass Index 24.93 07/30/2019 10:05 AM EDT Plan of Treatment Health Maintenance Due Date Last Done Comments COVID-19 Vaccine (#1) 04/20/1941 Pneumococcal Vaccine (1 of 1 - PCV) 2005 RSV Adult > 60+ Yrs or (1 - 1-dose 75+ series) 10/19/2015 Shingrix-Zoster Vaccine (2 o f 2) 01/23/2018 11/28/2017 Depression Screening 08/27/2019 08/26/2018, 08/26/2018, 08/09/2017 Fall Risk Assessment 08/27/2019 08/26/2018, 08/26/2018, 08/26/2018 Preventative Health Evaluation 08/27/2019 08/26/2018, 08/26/2018 Osteoporosis Screening (DEXA Scan) 09/30/2020 09/30/2018 (Declined), 05/20/2015 Influenza Vaccine (#1) 2023 DTap / Tdap / Td (2 - Td or Tdap) 11/29/2027 11/28/2017 (Declined), 11/28/2017 Hepatitis B Vaccines Aged Out No long er eligible based on patient's age to complete this topic RSV Ped < 20 months Aged Out No longe r eligible based on patient's age to complete this topic Care Teams Dog Food Dough Mixer Relationship Specialty Start Date End Date Franca Bautista DO PCP - General Family Medicine 05/15/17
== END 2024-07-21 10:17 | disposition home or self-care (01) ==
LOC: HO.HMCC 08:54
PROVIDERS: PCP Internal Medicine; Visit Provider Internal Medicine
DX: I10 Essential (primary) hypertension (principal); F41.9 Anxiety disorder, unspecified; F32.A Depression, unspecified; E78.00 Pure hypercholesterolemia, unspecified; H81.10 Benign paroxysmal vertigo, unspecified ear

== ENCOUNTER → 2024-07-21 08:53 | Outpatient (BNVA) | payer MEDICARE, SELFPAY | PROVIDERS: PCP Internal Medicine; Visit Provider Internal Medicine | DX: I10 Essential (primary) hypertension (principal); E78.00 Pure hypercholesterolemia, unspecified; F41.9 Anxiety disorder, unspecified; F32.A Depression, unspecified; H81.10 Benign paroxysmal vertigo, unspecified ear | CPT/HCPCS: 96127; 99212 ==

== ENCOUNTER 2024-08-07 11:00 | Outpatient (RCR) | payer MEDICARE, SELFPAY | END 2024-10-02 13:40 | disposition home or self-care (01) | LOC: HO.PT 11:00 | PROVIDERS: PCP Internal Medicine; Visit Provider Internal Medicine | DX: R26.89 Other abnormalities of gait and mobility (principal) | CPT/HCPCS: 97112; 97161; 97162 ==

== ENCOUNTER 2024-08-11 08:48 | Outpatient (AMB) | payer MEDICARE, SELFPAY ==
--- OUTSIDE RECORDS SUMMARY | 2024-08-11 08:57 | XMS_ITS | Clinical Summary ---
Author Organization [facility] Address [address] [place] [address] Care Team Providers Care Choke Setter Name Role Phone Franca Bautista DO Primary Care Provider [phone] Allergies Active Allergy Reactions Criticality Noted Date [...] age to complete this topic Care Teams Choke Setter Relationship Specialty Start Date End Date Franca Bautista DO PCP - General Family Medicine 05/15/17
--- NOTE | 2024-08-11 09:28 | AM.OFFWIN_ITS ---
Intake Vital Signs 08/11/24 09:31 Weight 134 lb BP 120/80 Blood Pressure Location Rt brachial Position Sitting Pulse 71 Pulse Source Pulse Oximeter Temp 97.6 F Temp Source Oral Pulse Oximetry (%) 97 Intake Visit Reasons: PE stomach issues Intake Note: Patient here for stomach pain and diarrhea that started last night. Patient Tobacco Use Status: Former Tobacco user Allergies ciprofloxacin [From CIPRO] Allergy (Intermediate, Verified 08/11/24 09:34) VOMITING hydrocortisone [Cipro HC] Adverse Reaction (Unknown, Verified 08/11/24 09:34) vomiting Statins Depletion Allergy (Unknown, Uncoded 08/11/24 09:34) vomiting Do you need a note to return to daycare/school/sports/work: No HPI HPI Comments History of Present Illness Details 83 y/o Female patient who presents to [facility] walk [facility] clinic with c/o Stomach cramping and diarrhea that started last night. Pt reports eating out the previous day at a local restaurant. Denies Nausea, vomiting, Fevers or chills. [facility] Medical History (Updated 08/11/24 @ 10:23 by Justine Oneal NP) Abdominal cramping HTN (hypertension) Dysplastic nevi Annual physical exam MARTINEZ (dyspnea on exertion) Fatigue Anxiety Hypercholesterolemia Surgical History H/O colonoscopy Family History Father No problems noted. Mother Osteomyelitis Social History Household Members Other:: Lives alone, exercise 5 times a week Housing: House Patient Tobacco Use Status: Former Tobacco user e-Cigarette/Vaping Use: Never Used service: No Current occupational status: retired Cognitive needs: No Hearing needs: No Vision needs: Yes Review of Systems Const All systems reviewed & are unremarkable except as noted in HPI and below Physical Exam Vital Signs: Last Vital Signs Temp 97.6 F 08/11/24 09:31 Pulse 71 08/11/24 09:31 BP 120/80 08/11/24 09:31 Pulse Ox 97 08/11/24 09:31 Const General: no acute distress Orientation/consciousness: patient oriented x3 Resp Effort & Inspection: normal respiratory effort Auscultation: clear to auscultation bilaterally Cardio Heart sounds: S1 normal heart sound present and S2 normal heart sound present GI Palpation (GI): Soft to palpation, not firm, Tenderness to palpation present (GI) suprapubicly, no guarding, not rigid and No hepatosplenomegaly present Auscultation: normal bowel sounds Neuro General: patient oriented x3 Assessment & Plan Assessment & Plan (1) Abdominal cramping: Code(s): R10.9 - Unspecified abdominal pain Plan: Hydrate well with fluids (Gingerale, Gatorade etc) Avoid Spicy, oily foods. (2) Diarrhea: Code(s): R19.7 - Diarrhea, unspecified Qualifiers: Diarrhea type: unspecified type Qualified Code(s): R19.7 - Diarrhea, unspecified Plan: Hydrate well with fluids (Gingerale, Gatorade etc) Avoid Spicy, oily foods. Coding Level of Care Code Est Pt Level 4 (69967) Diagnoses Abdominal cramping R10.9 Diarrhea, unspecified type R19.7 Diarrhea type: unspecified type Time Spent (min) 20
[2024-08-11 09:31] VITALS: BP 120/80; PULSE 71; TEMP 36.4; O2SAT 97
== END 2024-08-11 10:12 | disposition home or self-care (01) ==
PROVIDERS: PCP Internal Medicine; Visit Provider Nurse Practitioner Family
DX: R10.9 Unspecified abdominal pain (principal); R19.7 Diarrhea, unspecified

== ENCOUNTER → 2024-08-11 08:48 | Outpatient (BNVA) | payer MEDICARE, SELFPAY | PROVIDERS: PCP Internal Medicine; Visit Provider Nurse Practitioner Family | DX: R10.9 Unspecified abdominal pain (principal); R19.7 Diarrhea, unspecified | CPT/HCPCS: 99212 ==

== ENCOUNTER 2024-09-05 12:18 | Outpatient (AMB) | payer MEDICARE, SELFPAY ==
[2024-09-05 12:28] VITALS: BP 138/82; PULSE 99; O2SAT 98; BMI 21.6
--- NOTE | 2024-09-05 12:28 | A.OFFPC_ITS ---
Vital Signs 09/05/24 12:28 Height 5 ft 6 in Weight 134 lb BMI 21.6 BP 138/82 Blood Pressure Location Lt brachial Position Sitting Pulse 99 Pulse Source Pulse Oximeter Pulse Oximetry (%) 98 Oxygen Delivery Method Room Air Intake Visit Reasons: L ear ringing Intake Note: patient is here for abd pain, states she feels it goes hot and cold. Shell Grader Required: No Accompanied by: Self / Same As Patient Allergies ciprofloxacin [From CIPRO] Allergy (Intermediate, Verified 09/05/24 12:28) VOMITING hydrocortisone [Cipro HC] Adverse Reaction (Unknown, Verified 09/05/24 12:28) vomiting Statins Depletion Allergy (Unknown, Uncoded 08/11/24 09:34) vomiting Medication List - Last Reconciled 09/05/24 by Renee Lizarraga MD meclizine 12.5 mg PO TID PRN omeprazole 20 mg PO DAILY triamterene-hydrochlorothiazid 37.5-25 mg 1 tab PO DAILY Tobacco use date assessed: 07/21/24 Fall risk assessment: No Falls in past year Last assessed Fall Risk: 09/05/24 Dental Screening Dental Screen Date: 07/21/24 HPI L ear ringing HPI Details Patient presents complaining of abdominal discomfort some bloating on and off for the last month. Symptoms are worse after eating. Patient reports decreased appetite but denies any recent weight loss. Patient denies fever chills vomiting change in bowel habits hematochezia melena dysuria or urinary frequency PFSH Medical History (Updated 09/05/24 @ 13:19 by Renee Lizarraga MD) Abdominal cramping HTN (hypertension) Dysplastic nevi Annual physical exam MARTINEZ (dyspnea on exertion) Fatigue Anxiety Hypercholesterolemia Surgical History H/O colonoscopy Family History (Updated 09/05/24 @ 12:32 by Alfred Sin CMA) Father No problems noted. Mother Osteomyelitis Social History Household Members Other:: Lives alone, exercise 5 times a week Housing: House Patient Tobacco Use Status: Former Tobacco user e-Cigarette/Vaping Use: Never Used service: No Current occupational status: retired Cognitive needs: No Hearing needs: No Vision needs: Yes Questionnaire PHQ-9 Over the last 2 weeks, how often have you been bothered by any of the following problems? 1. Little interest or pleasure in doing things: not at all 2. Feeling down, depressed, or hopeless: not at all 3. Trouble falling or staying asleep, or sleeping too much: not at all 4. Feeling tired or having little energy: not at all 5. Poor appetite or overeating: several days 6. Feeling bad about yourself - or that you are a failure or have let yourself or your family down: not at all 7. Trouble concentrating on things, such as reading the newspaper or watching television: not at all 8. Moving or speaking so slowly that other people could have noticed. Or the opposite - being so fidgety or restless that you have been moving around a lot more than usual: not at all 9. Thoughts that you would be better off or of hurting yourself in some way: not at all Total score: 1 Depression Screening Interpretation: Negative Depression Screening Done: Yes 78071 - PHQ-9 Billing: Yes Source: Developed by Drs. José Miguel Canela, Nafisa Lucas, Yony Schultz and colleagues, with an educational neal from [employer]. Thrive Questionnaire Date Thrive assessed: 09/05/24 I am a: Patient What is your living situation today?: I have a steady place to live Within the past 12 months, did the food you bought not last and you didn't have the money to get more?: I choose not to answer this question Within the past 12 months, did you worry whether your food would run out before you got money to buy more?: Never true Do you have trouble paying for medicines?: No Do you have trouble getting transportation to medical appointments?: No Do you have trouble paying your heating and electricity bill?: No Do you have trouble taking care of your child, family member or friend?: I choose not to answer this question Do you have trouble with day-to-day activities such as bathing, preparing meals, shopping, managing finances, etc.?: No Are you currently unemployed and looking for a job?: I choose not to answer this question Are you interested in more education?: No THRIVE Score: 0 COLLEEN-7 AMB Questionnaire COLLEEN-7 Date COLLEEN - 7 assessed: 07/21/24 Source: Developed by Drs. José Miguel Canela, Nafisa Lucas, Yony Schultz and colleagues, with an educational neal from [employer]. Review of Systems Const All systems reviewed & are unremarkable except as noted in HPI and below ENT Reports no additional complaints Card Reports no additional complaints Resp Reports no additional complaints GI Reports no additional complaints Reports no additional complaints Physical exam (Primary Care) Vital Signs: Last Vital Signs Pulse 99 09/05/24 12:28 BP 138/82 09/05/24 12:28 Pulse Ox 98 09/05/24 12:28 Oxygen Delivery Method Room Air 09/05/24 12:28 BMI result Body Mass Index 21.6 Tobacco/Smoking Status: Tobacco use Status Tobacco use date assessed 07/21/24 09/05/24 12:35 Patient Tobacco Use Status Former Tobacco user 09/05/24 12:35 e-Cigarette/Vaping Use Never Used 09/05/24 12:35 PHQ-9: PHQ-9 Score PHQ-9: Total score 1 09/05/24 12:35 Depression Screening Interpretation: Negative Thrive Assessment: Date of Thrive Assessment Date Thrive assessed 09/05/24 09/05/24 12:35 Const General: no acute distress Neck Neck: Yes supple Resp Effort & Inspection: normal respiratory effort Auscultation: clear to auscultation bilaterally Cardio Rhythm: regular rhythm Heart sounds: S1 normal heart sound present and S2 normal heart sound present GI Inspection: Yes normal to inspection Palpation (GI): Soft to palpation, Tenderness to palpation present (GI) in the epigastrum and in the RUQ; with no rebound tenderness and no guarding Coding Level of Care Code Est Pt Level 3 (88580) Diagnoses Abdominal pain R10.9 Additional Codes PHQ-9 - 80218 - PHQ-9 Billing: Yes ([id number]) Assessment & Plan Assessment & Plan (1) Abdominal pain: Code(s): R10.9 - Unspecified abdominal pain Category: Medical Plan: Check CBC comprehensive panel urine culture, obtain abdominal ultrasound to rule out gallstones, trial of omeprazole for 1 month anf follow-up Orders: Orders Complete Blood Count Auto Diff Today R10.9 - Unspecified abdominal pain Urine Culture Today R10.9 - Unspecified abdominal pain US abdomen complete Today R10.9 - Unspecified abdominal pain Comprehensive Met. Panel Today R10.9 - Unspecified abdominal pain Medications: New omeprazole 20 mg PO DAILY 30 caps 0RF
--- OUTSIDE RECORDS SUMMARY | 2024-09-05 12:58 | XMS_ITS | Clinical Summary ---
Author Organization [facility] Address [address] [place] [address] Care Team Providers Care Submarine Operator Name Role Phone Franca Bautista DO Primary Care Provider [phone] Allergies Active Allergy Reactions Criticality Noted Date [...] Scan) 09/30/2020 09/30/2018 (Declined), 05/20/2015 Influenza Vaccine (Season Ended) 2024 DTap / Tdap / Td (2 - Td or Tdap) 11/29/2027 11/28/2017 (Declined), 11/28/2017 Hepatitis B Vaccines Aged Out No long er eligible based on patient's age to complete this topic RSV Ped < 20 months Aged Out No longe r eligible based on patient's age to complete this topic Care Teams Submarine Operator Relationship Specialty Start Date End Date Franca Bautista DO PCP - General Family Medicine 05/15/17
== END 2024-09-05 13:18 | disposition home or self-care (01) ==
LOC: HO.HMCC 12:19
PROVIDERS: PCP Internal Medicine; Visit Provider Internal Medicine
DX: R10.9 Unspecified abdominal pain (principal)

== ENCOUNTER → 2024-09-05 12:18 | Outpatient (BNVA) | payer MEDICARE, SELFPAY | PROVIDERS: PCP Internal Medicine; Visit Provider Internal Medicine | DX: R10.9 Unspecified abdominal pain (principal); Z87.891 Personal history of nicotine dependence | CPT/HCPCS: 96127; 99212 ==

== ENCOUNTER 2024-09-09 07:42 | Outpatient (REF) | payer MEDICARE, SELFPAY ==
--- NOTE | ~2024-09-09 | US_ITS ---
EXAMINATION: US ABDOMEN COMPLETE CLINICAL INFORMATION: Abdominal pain.. COMPARISON: None available. TECHNIQUE: Real-time ultrasound of the abdomen using grayscale and color Doppler technique. FINDINGS: PANCREAS: No peripancreatic fluid collections. ABDOMINAL AORTA: The proximal, mid, and distal segments are normal in caliber. INFERIOR VENA CAVA: Visualized portions are normal. LIVER: Liver measures 11 cm per technologist. Normal echotexture. No nodular surface. No gross solid or cystic lesion detected by the technologist. Main portal vein is patent with normal hepatopedal flow direction. No intrahepatic biliary ductal dilatation. GALLBLADDER: Fluid-filled. No pericholecystic fluid collection or gallbladder wall thickening. COMMON BILE DUCT: 5 mm. RIGHT KIDNEY: 11 cm. Normal echotexture. Normal renal cortical thickness. No hydronephrosis. Multifocal exophytic and cortical medullary junction anechoic lesions, the largest measures 2.1 cm in the upper pole. There is a 1.8 cm hyperechoic lesion with posterior shadowing in the upper pole. LEFT KIDNEY: 10 cm. Normal echotexture. Normal renal cortical thickness. No hydronephrosis. There is a 0.9 cm hyperechoic lesion in the upper pole. There is a 1 cm anechoic lesion at the corticomedullary junction upper pole. . SPLEEN: 9 cm. FREE FLUID: None. US/US abdomen complete IMPRESSION: Bilateral nonobstructing nephrolithiasis. Bilateral cystic lesions, renal. No hydronephrosis. No cholelithiasis. No ascites. Electronically signed by: Sourav Perez MD 09/09/2024 09:00 AM EDT
== END 2024-09-09 07:43 | disposition home or self-care (01) ==
LOC: HO.US 07:42
PROVIDERS: PCP Internal Medicine; Visit Provider Internal Medicine
DX: R10.9 Unspecified abdominal pain (principal)
CPT/HCPCS: 76700

== ENCOUNTER → 2024-09-09 07:43 | Outpatient (BNV) | payer MEDICARE, SELFPAY | PROVIDERS: PCP Internal Medicine; Visit Provider Radiology Diagnostic Radiology | DX: N20.0 Calculus of kidney (principal) | CPT/HCPCS: 76700 ==

== ENCOUNTER 2024-09-13 13:08 | Outpatient (REF) | payer MEDICARE, SELFPAY ==
--- OUTSIDE RECORDS SUMMARY | 2024-09-13 13:09 | XMS_ITS | Clinical Summary ---
Author Organization [facility] Address [address] [place] [address] Care Team Providers Care Vehicle Service Attendant Name Role Phone Franca Bautista DO Primary Care Provider [phone] Allergies Active Allergy Reactions Criticality Noted Date [...] 66 07/30/2019 10:05 AM EDT Temperature 36.1 C (96.9 F) 07/30/2019 10:05 AM EDT Respiratory Rate 14 07/30/2019 10:05 AM EDT [...] age to complete this topic Care Teams Vehicle Service Attendant Relationship Specialty Start Date End Date Franca Bautista DO PCP - General Family Medicine 05/15/17
[2024-09-13 13:51] LABS: MANUAL DIFF FLAG NO
[2024-09-13 13:56] LABS: Basophils Percent Auto 0.2 % (0-2); Eosinophils Absolute Auto 0.1 X10*3/uL (0.0-0.4); Eosinophils Percent Auto 1.1 % (0-4); Hematocrit 40.7 % (37.0-47.0); Hemoglobin 13.9 g/dl (12.0-16.0); Imm Gran Abs Auto 0.02 X10*3/uL (0.00-0.03); Imm Gran Pct Auto 0.2 % (0.0-0.4); Lymphocytes Absolute Auto 1.7 X10*3/uL (1.2-4.9); Lymphocytes Percent Auto 18.9 % (20-40); Mean Corpuscular HGB Conc 34.2 g/dl (31.0-35.0); Mean Corpuscular Hemoglobin 29.8 pg (27.0-33.0); Mean Corpuscular Volume 87.3 fL (80.0-98.0); Mean Platelet Volume 10.4 fL (9.4-12.3); Monocytes Absolute Auto 0.6 X10*3/uL (0.1-1.2); Monocytes Percent Auto 6.7 % (2-11); Neutrophils Absolute Auto 6.4 x10*3/uL (2.0-8.3); Neutrophils Percent Auto 72.9 % (45-73); Platelet Count 255 X10*3/uL (160-400); Red Blood Count 4.66 X10*6/uL (4.20-5.50); Red Cell Distribution Width 13.7 % (11.0-16.0); White Blood Count 8.8 X10*3/uL (4.8-10.8)
[2024-09-13 14:27] LABS: Alanine Aminotransferase 18 U/L (0-31); Alkaline Phosphatase 75 U/L (39-117); Anion Gap 13 (12-20); Aspartate Amino Transferase 20 U/L (5-31); Bilirubin Total 0.5 mg/dL (0.0-1.0); Blood Urea Nitrogen 22 mg/dL (9-16); Calcium 9.7 mg/dL (8.4-10.2); Carbon Dioxide 28 mmol/L (22-29); Chloride 105 mmol/L (96-108); Estimated Glomerular Filt Rate > 60; Glucose Random 76 mg/dL (60-115); Potassium 3.9 mmol/L (3.3-5.1); Sodium 142 mmol/L (135-145)
== END 2024-09-13 13:09 | disposition home or self-care (01) ==
LOC: HO.HMGCLDS 13:08
PROVIDERS: PCP Internal Medicine; Visit Provider Internal Medicine
DX: R10.9 Unspecified abdominal pain (principal)
CPT/HCPCS: 36415; 80053; 85025; 87086; 87088; 87186

== ENCOUNTER 2024-10-07 09:45 | Outpatient (AMB) | payer MEDICARE, SELFPAY ==
--- NOTE | 2024-10-07 09:47 | MHC.PC.OV ---
Vital Signs 10/07/24 10:14 Height 5 ft 6 in Weight 128 lb BMI 20.7 BP 130/74 Blood Pressure Location Lt brachial Position Sitting Respiration 18 Pulse 92 Pulse Source Pulse Oximeter Temp 98.1 F Temp Source Oral Pulse Oximetry (%) 96 Oxygen Delivery Method Room Air Intake Visit Reasons: 1 month follow up Intake Note: Pt is here today for 1 month follow up visit. Pt states that she was on antibiotic for UTI and she finished it. Pt states that she has no apetite. Allergies ciprofloxacin (From CIPRO) Allergy (Intermediate, Verified 10/07/24 09:49) VOMITING hydrocortisone (Cipro HC) Adverse Reaction (Unknown, Verified 10/07/24 09:49) vomiting Statins Depletion Allergy (Unknown, Uncoded 10/07/24 09:49) vomiting Medication List - Last Reconciled 10/07/24 by Renee Lizarraga MD meclizine 12.5 mg PO TID PRN omeprazole 20 mg PO DAILY pyridoxine (vitamin B6) (Vitamin B-6) 100 mg PO DAILY triamterene-hydrochlorothiazid 37.5-25 mg 1 tab PO DAILY Tobacco use date assessed: 10/07/24 Fall risk assessment: No Falls in past year Last assessed Fall Risk: 10/07/24 Dental Screening Dental Screen Date: 07/21/24 HPI 1 month follow up HPI Details Patient presents for the follow-up. She is feeling better. Hypertension is controlled on [facility] Medical History (Updated 10/07/24 @ 11:39 by Renee Lizarraga MD) Nephrolithiasis Abdominal cramping HTN (hypertension) Dysplastic nevi Annual physical exam MARTINEZ (dyspnea on exertion) Fatigue Anxiety Hypercholesterolemia Surgical History H/O colonoscopy Family History Father No problems noted. Mother Osteomyelitis Social History Household Members Other:: Lives alone, exercise 5 times a week Housing: House Patient Tobacco Use Status: Former Tobacco user e-Cigarette/Vaping Use: Never Used service: No Current occupational status: retired Cognitive needs: No Hearing needs: No Vision needs: Yes Questionnaire Thrive Questionnaire Date Thrive assessed: 09/05/24 I am a: Patient What is your living situation today?: I have a steady place to live Within the past 12 months, did the food you bought not last and you didn't have the money to get more?: I choose not to answer this question Within the past 12 months, did you worry whether your food would run out before you got money to buy more?: Never true Do you have trouble paying for medicines?: No Do you have trouble getting transportation to medical appointments?: No Do you have trouble paying your heating and electricity bill?: No Do you have trouble taking care of your child, family member or friend?: I choose not to answer this question Do you have trouble with day-to-day activities such as bathing, preparing meals, shopping, managing finances, etc.?: No Are you currently unemployed and looking for a job?: I choose not to answer this question Are you interested in more education?: No THRIVE Score: 0 COLLEEN-7 AMB Questionnaire COLLEEN-7 Date COLLEEN - 7 assessed: 07/21/24 Source: Developed by Drs. José Miguel Canela, Nafisa Lucas, Yony Schultz and colleagues, with an educational neal from [employer]. Review of Systems Const All systems reviewed & are unremarkable except as noted in HPI and below ENT Reports no additional complaints Card Reports no additional complaints Resp Reports no additional complaints GI Reports no additional complaints Reports no additional complaints Physical exam (Primary Care) Vital Signs: Last Vital Signs Temp 98.1 F 10/07/24 10:14 Pulse 92 10/07/24 10:14 Resp 18 10/07/24 10:14 BP 130/74 10/07/24 10:14 Pulse Ox 96 10/07/24 10:14 Oxygen Delivery Method Room Air 10/07/24 10:14 BMI result Body Mass Index 20.7 Tobacco/Smoking Status: Tobacco use Status Tobacco use date assessed 10/07/24 10/07/24 09:50 Patient Tobacco Use Status Former Tobacco user 10/07/24 09:50 e-Cigarette/Vaping Use Never Used 10/07/24 09:48 Thrive Assessment: Date of Thrive Assessment Date Thrive assessed 09/05/24 10/07/24 09:48 Const General: no acute distress HENMT Face and sinus: Yes normal facial exam Resp Effort & Inspection: normal respiratory effort Auscultation: clear to auscultation bilaterally Cardio Rhythm: regular rhythm Heart sounds: S1 normal heart sound present and S2 normal heart sound present GI Inspection: Yes normal to inspection Palpation (GI): Soft to palpation Percussion: Yes normal to percussion Coding Level of Care Code Est Pt Level 4 (62907) Diagnoses Hypertension, unspecified type I10 Hypertension type: unspecified Hypercholesterolemia E78.00 Nephrolithiasis N20.0 Assessment & Plan Assessment & Plan (1) HTN (hypertension): Code(s): I10 - Essential (primary) hypertension Category: Medical Qualifiers: Hypertension type: unspecified Qualified Code(s): I10 - Essential (primary) hypertension Plan: Continue meds (2) Hypercholesterolemia: Comment: intolerant to statins, pt refuses meds Code(s): E78.00 - Pure hypercholesterolemia, unspecified Category: Medical Plan: Continue low-cholesterol diet (3) Nephrolithiasis: Comment: 09/2024 nonobstructing multiple kidney stones Code(s): N20.0 - Calculus of kidney Category: Medical Plan: Start vitamin B6 and patient was advised to drink lemon juice daily. She declined 24 urine collection for workup of nephrolithiasis. follow-up in 3 months with a fasting labs before Orders: Orders Complete Blood Count Auto Diff 3 Months E78.00 - Pure hypercholesterolemia, unspecified, I10 - Essential (primary) hypertension IRON PROFILE 3 Months E78.00 - Pure hypercholesterolemia, unspecified, I10 - Essential (primary) hypertension Vitamin D 25-OH Total 3 Months E78.00 - Pure hypercholesterolemia, unspecified, I10 - Essential (primary) hypertension Comprehensive [place]. Panel Fast 3 Months E78.00 - Pure hypercholesterolemia, unspecified, I10 - Essential (primary) hypertension Medications: New pyridoxine (vitamin B6) (Vitamin B-6) 100 mg PO DAILY 90 tabs 3RF pyridoxine (vitamin B6) (Vitamin B-6) 100 mg PO DAILY 90 tabs 3RF
[2024-10-07 10:14] VITALS: BP 130/74; PULSE 92; RESP 18; TEMP 36.7; O2SAT 96; BMI 20.7
--- OUTSIDE RECORDS SUMMARY | 2024-10-07 10:28 | XMS_ITS | Clinical Summary ---
Author Organization [facility] Address [address] [place] [address] Care Team Providers Care Human Resources Hr Generalist Name Role Phone Franca Bautista DO Primary Care Provider [phone] Allergies Active Allergy Reactions Criticality Noted Date [...] 09/30/2020 09/30/2018 (Declined), 05/20/2015 Influenza Vaccine (#1) 2024 DTap / Tdap / Td (2 - Td or Tdap) 11/29/2027 11/28/2017 (Declined), 11/28/2017 Hepatitis B Vaccines Aged Out No long er eligible based on patient's age to complete this topic RSV Ped < 20 months Aged Out No longe r eligible based on patient's age to complete this topic Care Teams Human Resources Hr Generalist Relationship Specialty Start Date End Date Franca Bautista DO PCP - General Family Medicine 05/15/17
== END 2024-10-07 11:41 | disposition home or self-care (01) ==
LOC: HO.HMCC 09:46
PROVIDERS: PCP Internal Medicine; Visit Provider Internal Medicine
DX: I10 Essential (primary) hypertension (principal); E78.00 Pure hypercholesterolemia, unspecified; N20.0 Calculus of kidney

== ENCOUNTER → 2024-10-07 09:45 | Outpatient (BNVA) | payer MEDICARE, SELFPAY | PROVIDERS: PCP Internal Medicine; Visit Provider Internal Medicine | DX: I10 Essential (primary) hypertension (principal); E78.00 Pure hypercholesterolemia, unspecified; N20.0 Calculus of kidney | CPT/HCPCS: 99212 ==

== ENCOUNTER 2024-12-05 08:43 | Outpatient (REF) | payer MEDICARE, SELFPAY ==
[2024-12-05 13:41] LABS: Appearance Urine Clear; Glucose Urine UA Negative (Negative); PH 5.5 (5.0-9.0); Specific Gravity - Urine 1.020 (1.005-1.025); UMIC TRIGGER UA YES
== END 2024-12-05 08:44 | disposition home or self-care (01) ==
LOC: HO.HMGCLDS 08:43
PROVIDERS: PCP Internal Medicine; Visit Provider Internal Medicine
DX: N39.0 Urinary tract infection, site not specified (principal); I10 Essential (primary) hypertension; H26.9 Unspecified cataract; Z79.899 Other long term (current) drug therapy
CPT/HCPCS: 81001; 87086; 99212

== ENCOUNTER 2024-12-05 08:43 | Outpatient (AMB) | payer MEDICARE, SELFPAY ==
--- NOTE | 2024-12-05 08:44 | MHC.PC.OV ---
Vital Signs 12/05/24 08:48 Height 5 ft 6 in Weight 127 lb BMI 20.5 BP 122/70 Blood Pressure Location Lt brachial Position Sitting Respiration 17 Pulse 75 Pulse Source Pulse Oximeter Temp 97.6 F Temp Source Oral Pulse Oximetry (%) 96 Oxygen Delivery Method Room Air Intake Visit Reasons: pre op reschedule Intake Note: Pt is here today for a pre op visit. Pt is having cataract surgery on 12/08/[address] Sood. Allergies ciprofloxacin (From CIPRO) Allergy (Intermediate, Verified 12/05/24 08:54) VOMITING hydrocortisone (Cipro HC) Adverse Reaction (Unknown, Verified 12/05/24 08:54) vomiting Statins Depletion Allergy (Unknown, Uncoded 12/05/24 08:54) vomiting Medication List - Last Reconciled 12/05/24 by Renee Lizarraga MD meclizine 12.5 mg PO TID PRN omeprazole 20 mg PO DAILY pyridoxine (vitamin B6) (Vitamin B-6) 100 mg PO DAILY triamterene-hydrochlorothiazid 37.5-25 mg 1 tab PO DAILY Tobacco use date assessed: 12/05/24 Fall risk assessment: No Falls in past year Last assessed Fall Risk: 12/05/24 Dental Screening Dental Screen Date: 12/05/24 Did you have a dental visit in the last 12 months?: Yes Did you have a dental problem in the last 6 months where you did not have access to dental care?: No Was dental information given to patient?: Patient has dentist HPI pre op reschedule HPI Details Patient presents for the preop for cataract surgery. Hypertension is well controlled on current medications. [facility] Medical History Nephrolithiasis Abdominal cramping HTN (hypertension) Dysplastic nevi Annual physical exam MARTINEZ (dyspnea on exertion) Fatigue Anxiety Hypercholesterolemia Surgical History H/O colonoscopy Family History Father No problems noted. Mother Osteomyelitis Social History Household Members Other:: Lives alone, exercise 5 times a week Housing: House Patient Tobacco Use Status: Former Tobacco user e-Cigarette/Vaping Use: Never Used service: No Current occupational status: retired Cognitive needs: No Hearing needs: No Vision needs: Yes Questionnaire PHQ-9 Over the last 2 weeks, how often have you been bothered by any of the following problems? 1. Little interest or pleasure in doing things: not at all 2. Feeling down, depressed, or hopeless: not at all 3. Trouble falling or staying asleep, or sleeping too much: not at all 4. Feeling tired or having little energy: not at all 5. Poor appetite or overeating: several days 6. Feeling bad about yourself - or that you are a failure or have let yourself or your family down: not at all 7. Trouble concentrating on things, such as reading the newspaper or watching television: not at all 8. Moving or speaking so slowly that other people could have noticed. Or the opposite - being so fidgety or restless that you have been moving around a lot more than usual: not at all 9. Thoughts that you would be better off or of hurting yourself in some way: not at all Total score: 1 Depression Screening Interpretation: Negative Depression Screening Done: Yes Source: Developed by Drs. José Miguel Canela, Nafisa Lucas, Yony Schultz and colleagues, with an educational neal from [employer]. Thrive Questionnaire Date Thrive assessed: 09/05/24 I am a: Patient What is your living situation today?: I have a steady place to live Within the past 12 months, did the food you bought not last and you didn't have the money to get more?: I choose not to answer this question Within the past 12 months, did you worry whether your food would run out before you got money to buy more?: Never true Do you have trouble paying for medicines?: No Do you have trouble getting transportation to medical appointments?: No Do you have trouble paying your heating and electricity bill?: No Do you have trouble taking care of your child, family member or friend?: I choose not to answer this question Do you have trouble with day-to-day activities such as bathing, preparing meals, shopping, managing finances, etc.?: No Are you currently unemployed and looking for a job?: I choose not to answer this question Are you interested in more education?: No THRIVE Score: 0 COLLEEN-7 AMB Questionnaire COLLEEN-7 Date COLLEEN - 7 assessed: 07/21/24 Feeling nervous, anxious, or on edge: 0 = Not at all Not being able to stop or control worryin = Not at all Worrying too much about different things: 0 = Not at all Trouble relaxin = Not at all Being so restless that it is hard to sit still: 0 = Not at all Becoming easily annoyed or irritable: 0 = Not at all Feeling afraid as if something awful might happen: 0 = Not at all Total COLLEEN-7 score (0-4 normal; 5-9 mild; 10-14 moderate; 15-21 severe): 0 Source: Developed by Drs. José Miguel Canela, Nafisa Lucas, Yony Schultz and colleagues, with an educational neal from [employer]. Review of Systems Const All systems reviewed & are unremarkable except as noted in HPI and below Eyes Reports no additional complaints ENT Reports no additional complaints Card Reports no additional complaints Resp Reports no additional complaints GI Reports no additional complaints Reports no additional complaints Physical exam (Primary Care) Vital Signs: Last Vital Signs Temp 97.6 F 12/05/24 08:48 Pulse 75 12/05/24 08:48 Resp 17 12/05/24 08:48 BP 122/70 12/05/24 08:48 Pulse Ox 96 12/05/24 08:48 Oxygen Delivery Method Room Air 12/05/24 08:48 BMI result Body Mass Index 20.5 Tobacco/Smoking Status: Tobacco use Status Tobacco use date assessed 12/05/24 12/05/24 08:56 Patient Tobacco Use Status Former Tobacco user 12/05/24 08:46 e-Cigarette/Vaping Use Never Used 12/05/24 08:46 PHQ-9: PHQ-9 Score PHQ-9: Total score 1 12/05/24 08:56 Depression Screening Interpretation: Negative Thrive Assessment: Date of Thrive Assessment Date Thrive assessed 09/05/24 12/05/24 08:46 Const General: no acute distress HENMT Mouth: Normal oral and palatal mucosa present Eyes General: appearance normal, both eyes and all related structures Resp Effort & Inspection: normal respiratory effort Auscultation: clear to auscultation bilaterally Cardio Rhythm: regular rhythm Heart sounds: S1 normal heart sound present and S2 normal heart sound present GI Inspection: Yes normal to inspection Palpation (GI): Soft to palpation Coding Level of Care Code Est Pt Level 4 (58096) Diagnoses UTI (urinary tract infection) N39.0 Hypertension, unspecified type I10 Hypertension type: unspecified Cataract H26.9 Assessment & Plan Assessment & Plan (1) UTI (urinary tract infection): Code(s): N39.0 - Urinary tract infection, site not specified Category: Medical Plan: Check UA and urine culture for history of UTI (2) HTN (hypertension): Code(s): I10 - Essential (primary) hypertension Category: Medical Qualifiers: Hypertension type: unspecified Qualified Code(s): I10 - Essential (primary) hypertension Plan: Continue current medications (3) Cataract: Code(s): H26.9 - Unspecified cataract Category: Medical Plan: Patient is medically cleared for cataract surgery Orders: Orders UA w Microscopic Today N39.0 - Urinary tract infection, site not specified Urine Culture Today N39.0 - Urinary tract infection, site not specified
[2024-12-05 08:48] VITALS: BP 122/70; PULSE 75; RESP 17; TEMP 36.4; O2SAT 96; BMI 20.5
--- OUTSIDE RECORDS SUMMARY | 2024-12-05 09:24 | XMS_ITS | Clinical Summary ---
Author Organization [facility] Address [address] [place] [address] Care Team Providers Care Mold Blower Name Role Phone Franca Bautista DO Primary Care Provider [phone] Allergies Active Allergy Reactions Criticality Noted Date [...] age to complete this topic Care Teams Mold Blower Relationship Specialty Start Date End Date Franca Bautista DO PCP - General Family Medicine 05/15/17
== END 2024-12-05 09:31 | disposition home or self-care (01) ==
LOC: HO.HMCC 08:44
PROVIDERS: PCP Internal Medicine; Visit Provider Internal Medicine
DX: N39.0 Urinary tract infection, site not specified (principal); I10 Essential (primary) hypertension; H26.9 Unspecified cataract

== ENCOUNTER 2025-02-05 10:48 | Outpatient (AMB) | payer MEDICARE, SELFPAY ==
--- OUTSIDE RECORDS SUMMARY | 2025-01-12 04:00 | XMS_ITS ---
Author Organization [facility] Address [address] [place] [phone] Care Team Providers Care Senior Dynamics Crm Developer Name Role Phone Zia MERCADO, Renee Primary Care Provider Rashawn Bland Jr REASON FOR VISIT ABDOMINAL PAIN Encounters Encounter Location Date Provider Diagnosis [facility] [address] [facility] [address] [place] [phone] 01/12/2025 Rashawn Fernandes Jr Plan Of Treatment No Information Progress Notes * DANDRE SMITH ADOB:1940 (84 yo F)Acc No.[id number]:01/12/2025 Progress Notes Patient: DANDRE PENA Provider: Delia Fernandes MD :1940 A ge:84 Y S ex:Female Date:01/12/2025 Address:[address] [place], [place] [id number] Pcp:Renee Lizarraga MD Subjective: * Chief Complaints: * 1 . ABDOMINAL PAIN. * Medical History: Objective: * Vitals: Assessment: Plan: * Treatment: * * The named appointment provid er may or may not be the originator of this progress note, and it is not deemed complete until electronically signed by the appointment provider. Sign off status: Pending * Provider: Delia Fernandes MD Date: Generated for Karel hutchins/Vivian/eTransmitting on: 04/07/2024 01:19 PM EST
[2025-02-05 10:52] VITALS: BP 142/80; PULSE 61; O2SAT 96; BMI 20.8
--- NOTE | 2025-02-05 10:52 | AM.OFFWIN_ITS ---
Intake Vital Signs 02/05/25 10:52 Height 5 ft 6 in Weight 129 lb BMI 20.8 BP 142/80 H Blood Pressure Location Lt brachial Position Sitting Pulse 61 Pulse Source Pulse Oximeter Pulse Oximetry (%) 96 Oxygen Delivery Method Room Air Intake Visit Reasons: ep possible uti pain chills Intake Note: Patient presents c/o chills, left lower abdominal pain, warm feeling in belly when urinating x3-4 days. Patient has used OTC pyridium. Patient Tobacco Use Status: Former Tobacco user Allergies ciprofloxacin (From CIPRO) Allergy (Intermediate, Verified 02/05/25 11:03) VOMITING hydrocortisone (Cipro HC) Adverse Reaction (Unknown, Verified 02/05/25 11:03) vomiting Statins Depletion Allergy (Unknown, Uncoded 02/05/25 11:03) vomiting Do you need a note to return to daycare/school/sports/work: No HPI HPI Comments History of Present Illness Details 84 y/o Female patient [place] [facility] with c/o body chills associated with left lower abdominal pain for the past 4 days. Describes a ?warm feeling? in the abdomen when urinating. Has used OTC Pyridium with partial relief. Reports urinary frequency but denies dysuria, urgency, or hematuria. Recent history of diarrhea. Denies nausea, vomiting, flank pain, or fever. [facility] Medical History (Updated 02/05/25 @ 11:39 by Justine Oneal NP) Increased urinary frequency Nephrolithiasis Abdominal cramping HTN (hypertension) Dysplastic nevi Annual physical exam MARTINEZ (dyspnea on exertion) Fatigue Anxiety Hypercholesterolemia Surgical History H/O colonoscopy Family History Father No problems noted. Mother Osteomyelitis Social History Household Members Other:: Lives alone, exercise 5 times a week Housing: House Patient Tobacco Use Status: Former Tobacco user e-Cigarette/Vaping Use: Never Used service: No Current occupational status: retired Cognitive needs: No Hearing needs: No Vision needs: Yes Review of Systems Const All systems reviewed & are unremarkable except as noted in HPI and below Physical Exam Vital Signs: Last Vital Signs Pulse 61 02/05/25 10:52 BP 142/80 H 02/05/25 10:52 Pulse Ox 96 02/05/25 10:52 Oxygen Delivery Method Room Air 02/05/25 10:52 BMI result Body Mass Index 20.8 Const General: no acute distress Nutritional Appearance: well nourished Orientation/consciousness: patient oriented x3 Resp Effort & Inspection: normal respiratory effort Cardio Rate: regular rate GI Palpation (GI): Soft to palpation, not firm, Tenderness to palpation present (GI) in the LLQ, no guarding and not rigid Auscultation: normal bowel sounds General: Yes deferred Neuro General: patient oriented x3, gait normal and moves all extremities Psych Speech and movement: Normal speech and movement present Results AMB Urinalysis, Automated UA Leukoctes 500 Nancy/uL Last Edit by Ro Fernandez CMA on 02/05/25 11:37 UA Nitrite Positive Last Edit by Ro Fernandez CMA on 02/05/25 11:37 UA Urobilinogen 8 mg/dL Last Edit by Ro Fernandez CMA on 02/05/25 11:37 UA Protein 0 mg/dL Last Edit by Ro Fernandez CMA on 02/05/25 11:37 UA pH 5.0 Last Edit by Ro Fernandez CMA on 02/05/25 11:37 UA Blood 0 Chin/uL Last Edit by Ro Fernandez CMA on 02/05/25 11:37 UA Specific [place] 1.015 Last Edit by Ro Fernandez CMA on 02/05/25 11 :37 UA Ketone Positive Last Edit by Ro Fernandez CMA on 02/05/25 11:37 UA Bilirubin 4 mg/dL Last Edit by Ro Fernandez CMA on 02/05/25 11:37 UA Glucose 0 mg/dL Last Edit by Ro Fernandez CMA on 02/05/25 11:37 Patient took OTC pyridium. Results Reviewed Results Reviewed: Laboratory Last Values Urine pH (Auto) 5.0 02/05/25 11:35 Specific [place] (Auto) 1.015 02/05/25 11:35 Urine Protein (Auto) 0 mg/dL 02/05/25 11:35 Glucose (UA)(Auto) 0 mg/dL 02/05/25 11:35 Urine Ketones (Auto) Positive A 02/05/25 11:35 Urine Blood (Auto) 0 Chin/uL 02/05/25 11:35 Urine Nitrite (Auto) Positive A* 02/05/25 11:35 Urine Bilirubin (Auto) 4 mg/dL H* 02/05/25 11:35 Urine Urobilinogen (Auto) 8 mg/dL H* 02/05/25 11:35 Leukocyte Esterase (Auto) 500 Nancy/uL H* 02/05/25 11:35 Assessment & Plan Assessment & Plan (1) Increased urinary frequency: Code(s): R35.0 - Frequency of micturition Plan: Likely acute cystitis / UTI ? symptoms of frequency and suprapubic warmth despite pyridium use. Urinalysis Positive for NANCY, NIT. Sent urine for culture. Differential diagnosis: Diverticulitis (given LLQ tenderness and chills) vs Dehydration/electrolyte imbalance from recent diarrhea vs Pyelonephritis (less likely?no flank pain or fever). Encourageg oral hydration. Empiric antibiotic therapy pending UA results (Cefuroxime 500 mg x 7 days). Discontinue OTC Pyridium to avoid masking symptoms. Monitor for fever, worsening abdominal pain, or nausea/vomiting ? go to ED if these develop. Follow-up in 2?3 days or sooner if symptoms worsen. Orders: Orders AMB Urinalysis Automated Today Z13.9 - Encounter for screening, unspecified Urine Culture Today R35.0 - Frequency of micturition Medications: New cefuroxime axetil 500 mg PO BID 14 tabs 0RF 7 days N30.90 - Cystitis, unspecified without hematuria Coding Level of Care Code Est Pt Level 4 (64580) Diagnoses Increased urinary frequency R35.0 Time Spent (min) 20
--- OUTSIDE RECORDS SUMMARY | 2025-02-05 13:20 | XMS_ITS | Patient Health Record ---
Author Organization [facility] Address [address] [place] [phone] Care Team Providers Care Technologist Development Name Role Phone Renee Lizarraga MD Primary Care Provider Rashawn Bland Jr [phone] Allergies No Known Allergies Reason For Referral No Information Medications Medication SIG (Take, Route, Fr equency, Duration) Notes Start Date End Date Status Triamterene-HCTZ Act patricia Meclizine HCl Active Immunizations Vaccine Route Administration Date Status Comme nts Influenza Unknown 01/22/2025 Refused Social History Tobacco Use: Social History Observation Description Date Details (start date - stop date) Former Smoker NA - NA Tobacco Control (Standard) Question Answer Notes Tobacco use: Former smoker AUDIT-C (Standard) Question Answer Notes Did you have a drink containing alcohol in the p ast year? No Points 0 Interpretation Negative Problems Problem Type SNOMED Code ICD Code Onset Dates Problem Status W/U Status Risk Notes Problem Diarrhea (14069800) Diarrhea (R19.7) Active con firmed Problem Gastroesophageal reflux disease (627795159) Gastroesophageal reflux disease (K21.9) Active confirmed Vital Signs Temperature 96.7 degrees Fahrenheit 01/22/2025 Blood pressure diastolic 01 mm Hg 01/22/2025 Height 61 in 01/22/2025 Blood pressure systolic 001 mm Hg 01/22/2025 Weight 129.6 lbs 01/22/2025 BMI 24.49 kg/m2 01/22/2025 Encounters Encounter Location Date Provider Diagnosis [facility] [address] [place] [address] 01/22/2025 Rashawn Fernandes Jr Gastroesophageal reflux disease K21.9 and Diarrhea R19.7 Assessments Encounter Date Diagnosis (ICD Code) Assessment Notes Treatment Notes Treatment Clinical Notes Section Notes 01/22/2025 Diarrhea (ICD-10 - R19.7) We discussed her symptoms today. Reflux symptoms are under good control with OTC antacids and she will continue this. Laboratory studies from August showed a normal CBC and chemistries. Diarrheal symptoms seem diet related, and we discussed how to avoid foods that cause this. Currently she is doing well and will follow-up on a as needed basis. 01/22/2025 Gastroesophageal reflux disease (ICD-10 - K21.9) We discussed her symptoms today. Reflux symptoms are under good control with OTC antacids and she will continue this. Laboratory studies from August showed a normal CBC and chemistries. Diarrheal symptoms seem diet related, and we discussed how to avoid foods that cause this. Currently she is doing well and will follow-up on a as needed basis. Plan Of Treatment No Information Insurance Providers Payer Name Payer Address Payer Phone Subscriber Number Group Number Insured Name Patient Relationship to Insured Coverage Start Date Coverage End Date MEDICARE OF [place] [address] [place] [address] [id number] DANDRE SMITH Self - patient is the insured Medical (General) History Medical History History ICD Code hypertension dizziness Hyperlipidemia Anxiety/depression Eczema Urinary tract infections
--- OUTSIDE RECORDS SUMMARY | 2025-02-05 13:20 | XMS_ITS | Clinical Summary ---
Author Organization [facility] Address [address] [place] [address] Care Team Providers Care Hide Buyer Name Role Phone Franca Bautista DO Primary Care Provider [phone] Allergies Active Allergy Reactions Criticality Noted Date [...] age to complete this topic Care Teams Hide Buyer Relationship Specialty Start Date End Date Franca Bautista DO PCP - General Family Medicine 05/15/17
== END 2025-02-05 11:42 | disposition home or self-care (01) ==
PROVIDERS: PCP Internal Medicine; Visit Provider Nurse Practitioner Family
DX: R35.0 Frequency of micturition (principal); Z13.9 Encounter for screening, unspecified

== ENCOUNTER 2025-02-05 10:48 | Outpatient (REF) | payer MEDICARE, SELFPAY | END 2025-02-05 10:49 | disposition home or self-care (01) | LOC: HO.LAB 10:48 | PROVIDERS: PCP Internal Medicine; Visit Provider Nurse Practitioner Family | DX: R35.0 Frequency of micturition (principal); N30.90 Cystitis, unspecified without hematuria; Z13.89 Encounter for screening for other disorder | CPT/HCPCS: 81003; 87086; 87088; 87186; 99212 ==

== ENCOUNTER 2025-02-09 11:21 | Outpatient (AMB) | payer MEDICARE, SELFPAY ==
[2025-02-09 11:57] VITALS: BP 144/68; PULSE 96; O2SAT 76; BMI 20.8
--- NOTE | 2025-02-09 11:57 | AM.OFFWIN_ITS ---
Intake Vital Signs 02/09/25 11:57 Height 5 ft 6 in Weight 129 lb BMI 20.8 BP 144/68 H Blood Pressure Location Lt brachial Position Sitting Pulse 96 Pulse Source Pulse Oximeter Pulse Oximetry (%) 76 L Oxygen Delivery Method Room Air Intake Visit Reasons: ep pain in stomach chills Intake Note: Patient presents c/o stomach pain, chills - was seen on 02/05 for the same thing. Patient Tobacco Use Status: Former Tobacco user Allergies ciprofloxacin (From CIPRO) Allergy (Intermediate, Verified 02/09/25 12:00) VOMITING hydrocortisone (Cipro HC) Adverse Reaction (Unknown, Verified 02/09/25 12:00) vomiting Statins Depletion Allergy (Unknown, Uncoded 02/09/25 12:00) vomiting HPI HPI Comments History of Present Illness Details 84 y/o female presents with persistent l eft lower abdominal pain. She describes a ?warm feeling? in the abdomen specifically during urination. She was evaluated on 02/05 for similar symptoms and diagnosed with a UTI; urine culture at that time grew E. coli. She was started on Cefuroxime 500 mg PO BID ? 7 days. Today she reports no symptom relief despite adherence to the antibiotic regimen; she has 3 days of therapy remaining. Denies fever, chills, nausea, vomiting, constipation, or diarrhea. [facility] Medical History (Updated 02/09/25 @ 12:52 by Justine Oneal NP) Suprapubic abdominal burning sensation Increased urinary frequency Nephrolithiasis Abdominal cramping HTN (hypertension) Dysplastic nevi Annual physical exam MARTINEZ (dyspnea on exertion) Fatigue Anxiety Hypercholesterolemia Surgical History H/O colonoscopy Family History Father No problems noted. Mother Osteomyelitis Social History Household Members Other:: Lives alone, exercise 5 times a week Housing: House Patient Tobacco Use Status: Former Tobacco user e-Cigarette/Vaping Use: Never Used service: No Current occupational status: retired Cognitive needs: No Hearing needs: No Vision needs: Yes Review of Systems Const All systems reviewed & are unremarkable except as noted in HPI and below Physical Exam Vital Signs: Last Vital Signs Pulse 96 02/09/25 11:57 BP 144/68 H 02/09/25 11:57 Pulse Ox 76 L 02/09/25 11:57 Oxygen Delivery Method Room Air 02/09/25 11:57 BMI result Body Mass Index 20.8 Const General: no acute distress Orientation/consciousness: patient oriented x3 GI Inspection: Yes normal to inspection Palpation (GI): Tenderness to palpation present (GI) in the LLQ and suprapubicly Auscultation: normal bowel sounds Rectal Exam - Female: deferred Speculum Exam - Vagina: vagina atrophic, tenderness and other (No vaginal discharge - dry mucosa. ) Neuro General: patient oriented x3, gait normal and moves all extremities Psych Speech and movement: Normal speech and movement present Assessment & Plan Assessment & Plan (1) Suprapubic abdominal burning sensation: Code(s): R20.8 - Other disturbances of skin sensation Plan: DDx's: Vaginitis vs BV vs Fungal Ordered Vaginal Panel. Continue on Treatment as prescribed. Encourage hydration. Return precautions: worsening pain, fever, chills, vomiting, flank pain, inability to urinate. Orders: Orders Bacterial Vaginosis Panel Today R20.8 - Other disturbances of skin sensation Coding Level of Care Code Est Pt Level 4 (38697) Diagnoses Suprapubic abdominal burning sensation R20.8 Time Spent (min) 20
== END 2025-02-09 13:27 | disposition home or self-care (01) ==
PROVIDERS: PCP Internal Medicine; Visit Provider Nurse Practitioner Family
DX: R20.8 Other disturbances of skin sensation (principal)

== ENCOUNTER 2025-02-09 11:21 | Outpatient (REF) | payer MEDICARE, SELFPAY ==
[2025-02-09 17:20] LABS: Bacterial Vaginosis PCR NEGATIVE (Negative); Candida Group PCR NOT DETECTED (Not Detect); Candida glab krusei PCR NOT DETECTED (Not Detect); Trichomonas vaginalis PCR NOT DETECTED (Not Detect)
--- OUTSIDE RECORDS SUMMARY | 2025-02-10 01:34 | XMS_ITS | Clinical Summary ---
Author Organization [facility] Address [address] [place] [address] Care Team Providers Care Red Mud Thickener Operator Name Role Phone Franca Bautista DO Primary Care Provider [phone] Allergies Active Allergy Reactions Criticality Noted Date [...] age to complete this topic Care Teams Red Mud Thickener Operator Relationship Specialty Start Date End Date Franca Bautista DO PCP - General Family Medicine 05/15/17
== END 2025-02-09 11:22 | disposition home or self-care (01) ==
LOC: HO.LAB 11:21
PROVIDERS: Nurse Practitioner Family; PCP Internal Medicine
DX: R20.8 Other disturbances of skin sensation (principal); R10.32 Left lower quadrant pain; Z20.2 Contact with and (suspected) exposure to infections with a predominantly sexual mode of transmission
CPT/HCPCS: 81515; 99212

== ENCOUNTER 2025-02-11 14:49 | Outpatient (AMB) | payer MEDICARE, SELFPAY ==
--- OUTSIDE RECORDS SUMMARY | 2025-01-12 04:00 | XMS_ITS ---
Author Organization [facility] Address [address] [place] [phone] Care Team Providers Care Bacteriology Teacher Name Role Phone Zia MERCADO, Renee Primary Care Provider Rashawn Bland Jr REASON FOR VISIT ABDOMINAL PAIN Encounters Encounter Location Date Provider Diagnosis [facility] [address] [facility] [address] [place] [phone] 01/12/2025 Rashawn Fernandes Jr Plan Of Treatment No Information Progress Notes * DANDRE SMITH ADOB:1940 (84 yo F)Acc No.[id number]:01/12/2025 Progress Notes Patient: DANDRE PENA Provider: Delia Fernandes MD :1940 A ge:84 Y S ex:Female Date:01/12/2025 Address:[address] [place], [place] [id number] Pcp:Renee Lizarraga MD Subjective: * Chief Complaints: * A BDOMINAL PAIN * The named appointment provid er may or may not be the originator of this progress note, and it is not deemed complete until electronically signed by the appointment provider. Sign off status: Pending * Provider: Delia Fernandes MD Date: Generated for Karel hutchins/Vivian/eTransmitting on: 04/14/2024 03:20 AM EST
[2025-02-11 15:20] VITALS: BP 142/64; PULSE 88; TEMP 36.4; O2SAT 97; BMI 20.8
--- NOTE | 2025-02-11 15:20 | AM.OFFWIN_ITS ---
Intake Vital Signs 02/11/25 15:20 Height 5 ft 6 in Weight 129 lb BMI 20.8 BP 142/64 H Blood Pressure Location Lt brachial Position Sitting Pulse 88 Pulse Source Pulse Oximeter Temp 97.6 F Temp Source Oral Pulse Oximetry (%) 97 Oxygen Delivery Method Room Air Intake Visit Reasons: EP still having symptoms of UTI Patient Tobacco Use Status: Former Tobacco user Allergies ciprofloxacin (From CIPRO) Allergy (Intermediate, Verified 02/11/25 15:21) VOMITING hydrocortisone (Cipro HC) Adverse Reaction (Unknown, Verified 02/11/25 15:21) vomiting Statins Depletion Allergy (Unknown, Uncoded 02/11/25 15:21) vomiting Do you need a note to return to daycare/school/sports/work: No HPI HPI Comments History of Present Illness Details History - The patient is a 62-year-old female pr esenting with symptoms suggestive of a urinary tract infection. - The patient reports experiencing sympt oms consistent with a urinary tract infection, including hot and cold flashes, similar to a previous episode six months ago. - The patient completed a 14-day course of antibiotics, but symptoms persist. - The patient was prescribed cefuroxime due to an allergy to ciprofloxacin, which was previously effective but not tolerated. - The patient has a history of E. coli i nfection identified in a urine culture from a previous visit. - The patient was seen on February 05 for a UTI and started antibiotics the same day, completing the course tomorrow. - She is concerned that she still has a UTI. - She denies fever, chills, hematuria, d ysuria, back pain, n/v/d, or vaginal discharge. Physical Exam General: Cooperative, healthy appearing, comfortable, no acute distress and well developed Cardiac: Normal S1 and S2. RRR, no M/R/G noted. Respiratory: Normal respiratory effort and able to speak in complete sentences. Clear to auscultation bilaterally. No w/r/r noted. Skin: No rashes or lesions noted. GI: Normal inspection. Normal BS noted. Soft, non-tender, non-distended. No TTP of all 4 quadrants. No guarding or rebound tenderness noted. Back: Negative CVA bilaterally Patient was informed and verbally consented to the use of an ambient scribe for clinic note documentation during this visit. [facility] Medical History (Updated 02/09/25 @ 12:52 by Justine Oneal NP) Suprapubic abdominal burning sensation Increased urinary frequency Nephrolithiasis Abdominal cramping HTN (hypertension) Dysplastic nevi Annual physical exam MARTINEZ (dyspnea on exertion) Fatigue Anxiety Hypercholesterolemia Surgical History H/O colonoscopy Family History Father No problems noted. Mother Osteomyelitis Social History Household Members Other:: Lives alone, exercise 5 times a week Housing: House Patient Tobacco Use Status: Former Tobacco user e-Cigarette/Vaping Use: Never Used service: No Current occupational status: retired Cognitive needs: No Hearing needs: No Vision needs: Yes Review of Systems Const All systems reviewed & are unremarkable except as noted in HPI and below Physical Exam Vital Signs: Last Vital Signs Temp 97.6 F 02/11/25 15:20 Pulse 88 02/11/25 15:20 BP 142/64 H 02/11/25 15:20 Pulse Ox 97 02/11/25 15:20 Oxygen Delivery Method Room Air 02/11/25 15:20 BMI result Body Mass Index 20.8 Results AMB Urinalysis, Automated UA Leukoctes 70 Nancy/uL Last Edit by Kymberly Maxwell CMA on 02/11/25 15:43 1+ Kymberly Maxwell 02/11/25 15:43 UA Nitrite Negative Last Edit by Kymberly Maxwell CMA on 02/11/25 15:43 UA Urobilinogen 0.2 mg/dL Last Edit by Kymberly Maxwell CMA on 02/11/25 15:4 3 UA Protein 15 mg/dL Last Edit by Kymberly Maxwell CMA on 02/11/25 15:43 UA pH 6.0 Last Edit by Kymberly Maxwell CMA on 02/11/25 15:43 UA Blood 25 Chin/uL Last Edit by Kymberly Maxwell CMA on 02/11/25 15:43 1+ Kymberly Maxwell 02/11/25 15:43 UA Specific [place] 1.025 Last Edit by Kymberly Maxwell CMA on 02/11/25 15: 43 UA Ketone Negative Last Edit by Kymberly Maxwell CMA on 02/11/25 15:43 UA Bilirubin 0 mg/dL Last Edit by Kymberly Maxwell CMA on 02/11/25 15:43 UA Glucose 0 mg/dL Last Edit by Kymberly Maxwell CMA on 02/11/25 15:43 Assessment & Plan Assessment & Plan (1) Increased urinary frequency: Code(s): R35.0 - Frequency of micturition Plan Most likely complicated UTI UA 1+ leuko, blood and +protein plan - Finish antibiotics as prescribed. - A referral to the urogynecology department will be made for further evaluation of recurrent urinary tract infections. - A urine culture will be ordered to identify the current bacterial strain and determine appropriate antibiotic therapy. - The patient will follow up with her primary care physician, Sylvia, for ongoing management and coordination of care. Orders: Orders Urine Culture Today N39.0 - Urinary tract infection, site not specified AMB Urinalysis Automated Today Z13.9 - Encounter for screening, unspecified Referrals Urogynecology Referral N39.0 - Urinary tract infection, site not specified Coding Level of Care Code Est Pt Level 3 (88754) Diagnoses Increased urinary frequency R35.0
--- OUTSIDE RECORDS SUMMARY | 2025-02-12 03:20 | XMS_ITS | Clinical Summary ---
Author Organization [facility] Address [address] [place] [address] Care Team Providers Care Ground Transportation Operator Name Role Phone Franca Bautista DO Primary Care Provider [phone] Allergies Active Allergy Reactions Criticality Noted Date [...] age to complete this topic Care Teams Ground Transportation Operator Relationship Specialty Start Date End Date Franca Bautista DO PCP - General Family Medicine 05/15/17
--- OUTSIDE RECORDS SUMMARY | 2025-02-12 03:20 | XMS_ITS | Patient Health Record ---
Author Organization [facility] Address [address] [place] [id number] Care Team Providers Care Knowledge Management Advisor Name Role Phone Renee Lizarraga MD Primary Care Provider Rashawn Bland Jr Unavailable Allergies No Known Allergies Reason For Referral No Information Medications Medication SIG (Take, Route, Fr equency, Duration) Notes Start Date End Date Status Triamterene-HCTZ Act patricia Meclizine HCl Active Immunizations Vaccine Route Administration Date Status Comme nts Influenza Unknown 01/22/2025 Refused Social History Tobacco Use: Social History Observation Description Date Details (start date - stop date) Former Smoker NA - NA Social History Drug/Alcohol: Social Info Question Answer Notes AUDIT-C (Standard) Did you have a drink containing alcohol in the past year? No Points 0 Interpretation Negative Tobacco Use: Social Info Question Answer Notes Tobacco Control (Standard) Tobacco use: Former smoker Additional Details Category Social Info Options Details Miscellaneous: Marital status: single Occupation: retired Problems Problem Type SNOMED Code ICD Code Onset Dates Problem Status W/U Status Risk Notes Problem Diarrhea (82225655) Diarrhea (R19.7) Active con firmed Problem Gastroesophageal reflux disease (157464782) Gastroesophageal reflux disease (K21.9) Active confirmed Vital Signs Temperature 96.7 degrees Fahrenheit 01/22/2025 Blood pressure diastolic 01 mm Hg 01/22/2025 Height 61 in 01/22/2025 Blood pressure systolic 001 mm Hg 01/22/2025 Weight 129.6 lbs 01/22/2025 BMI 24.49 kg/m2 01/22/2025 Encounters Encounter Location Date Provider Diagnosis [facility] [address] [place] [address] 01/22/2025 Rashawn Dom Lacey Gastroesophageal reflux disease K21.9 and Diarrhea R19.7 [...] Start Date Coverage End Date MEDICARE OF [employer] [address] NARCISA PARKER [id number] DANDRE SMITH Self - patient is the insured Medical (General) History Medical History History ICD Code hypertension dizziness Hyperlipidemia Anxiety/depression Eczema Urinary tract infections
== END 2025-02-11 16:09 | disposition home or self-care (01) ==
PROVIDERS: PCP Internal Medicine; Visit Provider Physician Assistant Medical
DX: R35.0 Frequency of micturition (principal); Z13.9 Encounter for screening, unspecified

== ENCOUNTER 2025-02-11 14:49 | Outpatient (REF) | payer MEDICARE, SELFPAY | END 2025-02-11 14:50 | disposition home or self-care (01) | LOC: HO.LAB 14:49 | PROVIDERS: PCP Internal Medicine | DX: R35.0 Frequency of micturition (principal); N39.0 Urinary tract infection, site not specified; Z13.89 Encounter for screening for other disorder | CPT/HCPCS: 81003; 87086; 99212 ==

== ENCOUNTER 2025-03-03 09:58 | Emergency (ER) | payer MEDICARE, SELFPAY ==
--- OUTSIDE RECORDS SUMMARY | 2025-01-12 04:00 | XMS_ITS ---
Author Organization [facility] Address [address] [place] [phone] Care Team Providers Care Presetter Operator Name Role Phone Zia MERCADO, Renee Primary Care Provider Rashawn Bland Jr [phone] REASON FOR VISIT ABDOMINAL PAIN Encounters Encounter Location Date Provider Diagnosis [facility] [address] [facility] [address] [place] [phone] 01/12/2025 Rashawn Fernandes Jr Plan Of Treatment No Information Progress Notes * DANDRE SMITH ADOB:1940 (84 yo F)Acc No.[id number]:01/12/2025 Progress Notes Patient: DANDRE PENA Provider: Delia Fernandes MD :1940 A ge:84 Y S ex:Female Date:01/12/2025 Address:[address] [place], [place] [phone] Pcp:Renee Lizarraga MD Subjective: * Chief Complaints: * A BDOMINAL PAIN * The named appointment provid er may or may not be the originator of this progress note, and it is not deemed complete until electronically signed by the appointment provider. Sign off status: Pending * Provider: Delia Fernandes MD Date: Generated for Karel hutchins/Vivian/eTransmitting on: 05/04/2024 11:01 PM EST
--- NOTE | ~2025-03-03 | CT_ITS ---
CLINICAL HISTORY: Abdominal Pain CT abdomen and pelvis with contrast Comparison: US/SR - US ABDOMEN - 09/09/24 08:20 EDT Findings: No consolidation or effusion. 4 mm noncalcified nodule in right lung base abutting the pleural posteriorly seen on image 19/86 series 3. The gallbladder is unremarkable. No biliary ductal dilatation. The liver, spleen, pancreas and adrenal glands within normal limits. 1.6 cm nonobstructing right renal stone. No ureteral stones and no hydronephrosis or hydroureter. Bilateral renal round hypodense lesions the largest on the right 1.8 cm and on the left 1.7 cm consistent with cysts. The smaller lesions are too small to be fully characterized. No perinephric stranding. No bowel obstruction, pneumoperitoneum, or pneumatosis. Colonic diverticulosis. No acute diverticulitis. Moderate rectal stool. No free fluid. Normal appendix. Atherosclerotic vascular disease with no aneurysm of the abdominal aorta. Uterus within normal limits. Mild urinary bladder wall thickening may represent cystitis. Bilateral small fat containing inguinal hernias. No acute fracture. Diffuse demineralization. IMPRESSION: 1. No acute findings. 2. Mild urinary bladder wall thickening may represent cystitis. Correlate with urinalysis. 3. Colonic diverticulosis. 4. Nonobstructing right renal stone and bilateral renal cysts. 5. Right basilar 4 mm nodule. Follow-up should be obtained as per Fleischner society criteria. This document has been electronically signed by: Marisa Nayak MD on 03/03/2025 18:20:12
--- NOTE | 2025-03-03 10:04 | ECG_ITS ---
Test Reason : abd pain Blood Pressure : */* mmHG Vent. 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
--- NOTE | 2025-03-03 10:04 | ED_ITS ---
HPI - Abdominal Pain General Chief Complaint: Abdominal Pain Stated Complaint: abd pain Time Seen by Provider: 03/03/25 16:24 History of Present Illness ED Provider: Bee Lanza NP HPI narrative: 84-year-old female with a medical history significant for frequent UTI, hypertension, hyperlipidemia, anxiety, depression, cataracts, benign positional vertigo, chronic diarrhea, nephrolithiasis, presents to the ED with her daughter for evaluation of generalized abdominal pain located in the upper abdomen ongoing for several days, progressively worsening. The patient does have chronic abdominal pain, but feels this is more acute. She reports the pain is located to the bilateral sides of the abdomen, in the upper abdomen. There is no umbilical abdominal pain, she denies any suprapubic abdominal pain. She does report frequency of urination. No dysuria, hematuria. Denies any fever, chills at home. No chest pain or pressure, shortness of breath. Reports that she has lost several lb in the past 1 month without trying, but relates this to decreased oral intake. Related Data Home Medications ?Medication ?Instructions ?Recorded ?Confirmed meclizine 12.5 mg tablet 12.5 mg PO TID PRN dizziness 09/05/24 02/05/25 Previous Rx's ?Medication ?Instructions ?Recorded triamterene 37.5 1 tab PO DAILY #90 tabs 04/26 11/17 mg-hydrochlorothiazide 25 mg tablet pyridoxine (vitamin B6) 100 mg 100 mg PO DAILY #90 tab s 10/07/24 tablet (Vitamin B-6) omeprazole 20 mg capsule,delayed 20 mg PO DAILY #90 ca ps 10/13/24 release cefpodoxime 200 mg tablet 200 mg PO Q12H 10 days #20 t abs 03/03/25 Allergies Allergy/AdvReac Type Severity Reaction Status Date / Time ciprofloxacin (From CIPRO) Allergy Intermediate VOMITING Verified 03/03/25 10:06 hydrocortisone (Cipro HC) AdvReac Unknown vomiting Verified 03/03/25 10:06 Statins Depletion Allergy Unknown vomiting Uncoded 02/11/25 15:21 Review of Systems Review of Systems ROS is otherwise negative unless mentioned in HPI. [facility] Past Medical History Medical History (Updated 03/03/25 @ 18:55 by Bee Lanza, DIGITAL CAMPAIGN SPECIALIST-) Suprapubic abdominal burning sensation Increased urinary frequency Nephrolithiasis Abdominal cramping HTN (hypertension) Dysplastic nevi Annual physical exam MARTINEZ (dyspnea on exertion) Fatigue Anxiety Hypercholesterolemia Surgical History H/O colonoscopy Family History Family History Father No problems noted. Mother Osteomyelitis Social History Social History Household Members Other:: Lives alone, exercise 5 times a week Housing: House Patient Tobacco Use Status: Former Tobacco user e-Cigarette/Vaping Use: Never Used Advance Directives: Yes Advance Directives Information Provided: Yes Advance Directives on File: No service: No Current occupational status: retired Cognitive needs: No Hearing needs: No Vision needs: Yes Physical Exam ED Exam Exam: Nursing notes and vital signs reviewed. Constitutional: Well-appearing, NAD. Alert. Oriented X3. Eyes: EOMI. ENT: Pharynx normal. Neck: Normal inspection. Neck supple. CVS: Normal heart rate and rhythm. Pulses normal. Respiratory: No respiratory distress. Breath sounds normal. Abdomen: Soft and nontender, nondistended. Skin: Skin warm and dry. Normal skin color. Extremities: No lower extremity edema. Neuro: Oriented X 3. No motor deficit. Vital Signs: Vital Signs - 24 hr 03/03/25 10:05 03/03/25 14:05 Temperature 97.6 F 98.5 F Pulse Rate 81 78 Respiratory Rate 18 18 Blood Pressure 202/86 H 155/91 H Pulse Oximetry 94 95 Oxygen Delivery Method Room Air Room Air BMI result Body Mass Index 23.0 Course Course Course Narrative: 84-year-old female with past medical history of UTI, balance disorder, vertigo, carotid stenosis, anxiety depression, hypertension, chronic diarrhea, nephrolithiasis, abdominal pain, she notes she has seen the urgent care multiple times for abdominal pain she states it goes on both sides. She reports no visits to the program support specialist. She denies any nausea, vomiting, she does have chronic diarrhea. I did review her chart she has only had an abdominal ultrasound to evaluate this pain which was ordered by the urgent care. She states eating does not make it worse. She admits to losing 8 or 10 lb in the last month or so. this is a RAPID medical screening exam the rest of the history and physical exam is to be done by the main provider. 10:08 AM 03/03/2025 (SHAHANA ): Medical Decision Making Medical Decision Making [facility] Narrative: 4:48 PM 03/03/2025 (Bee Lanza NP): Upon my initial assessment of this patient, I evaluated her in the PIT area. She is with her daughter. She presents because she has had abdominal pain has progressively worsened over the past several days, and she reports decreased oral intake. Her urinalysis here is positive for UTI. Her daughter does tell me she has had several recent UTIs. She was treated on 02/05/2025, urine culture grew E coli. She was placed on cefuroxime for 14 days. She then completed the longer course of antibiotics, and on 02/11/2025 was told to complete the course of antibiotics and see urogynecology which she has not been able to do yet. Here, the UA is positive with nitrites and large bacteria. I will administer a dose of Rocephin. It is possible this is a complicated UTI and she will require admission to the hospital for failure of outpatient antibiotics. Given the weight loss complaint, we will also obtain CT imaging of the abdomen and pelvis to rule underlying pathology such as intra-abdominal mass or malignancy. We will administer a fluid bolus, antiemetic and reassess 6:30 PM-- Upon my reassessment, the patient tells me she feels much better. The CT scan of the abdomen and pelvis shows no acute intra-abdominal pathology. It does show bladder wall thickening consistent with cystitis. Otherwise, no acute findings. She completed antibiotics on 02/11/2025. She has a positive UTI today. Therefore, this does not meet criteria of outpatient failure. Based on previous culture that grew E coli, we will treat her with cefpodoxime for 10 days, b.i.d.. I discussed with her daughter, and with the patient that she has follow up tomorrow with her PCP, and I want her to have a repeat urinalysis done in the next 5 days to ensure treatment is working/UTI resolution. I also would like a referral to urogynecology, which I have listed on the paperwork here. She is eating and drinking, tolerating p.o. comfortably in the ED. No indication for additional workup, nor for admission. Patient, her daughter are agreeable to plan of care. Provided return precautions to the ED extensively. Differential Diagnosis Differential Diagnoses: The differential diagnosis associated with the presentation includes Cystitis, pyelonephritis, complicated UTI, gastroenteritis Admission/Observation Consideration of admission/observation: Escalation of care including admission/observation considered (Considered, not indicated, see MDM.) Lab Data [facility] Lab Attestation statement: I reviewed the patient's lab results. (Reassuring overall) 03/03/25 10:46 03/03/25 10:46 Labs: Lab Results 03/03/25 03/03/25 03/03/25 Range/Units 10:46 10:51 16:53 WBC 10.3 (4.8-10.8) X10*3/uL RBC 4.73 (4.20-5.50) X10*6/uL Hgb 13.9 (12.0-16.0) g/dl Hct 42.9 (37.0-47.0) % MCV 90.7 (80.0-98.0) fL MCH 29.4 (27.0-33.0) pg MCHC 32.4 (31.0-35.0) g/dl RDW 13.4 (11.0-16.0) % Plt Count 217 (160-400) X10*3/uL MPV 9.6 (9.4-12.3) fL Immature Gran % (Auto) 0.3 (0.0-0.4) % Neut % (Auto) 83.7 H (45-73) % Lymph % (Auto) 9.8 L (20-40) % [place] % (Auto) 5.6 (2-11) % Eos % (Auto) 0.4 (0-4) % Baso % (Auto) 0.2 (0-2) % Lymph # (Auto) 1.0 L (1.2-4.9) X10*3/uL [place] # (Auto) 0.6 (0.1-1.2) X10*3/uL Eos # (Auto) 0.0 (0.0-0.4) X10*3/uL Baso # (Auto) 0.0 (0.0-0.2) X10*3/uL Abs Immat Gran (auto) 0.03 (0.00-0.03) X10*3/uL Absolute Neuts (auto) 8.6 H (2.0-8.3) x10*3/uL Absolute Nucleated RBC 0.000 (0.0-0.012) X10*3/uL Nucleated RBC % (auto) 0.0 (0.0-0.2) /100WBC Sodium 141 (135-145) mmol/L Potassium 3.7 (3.3-5.1) mmol/L Chloride 107 (96-108) mmol/L Carbon Dioxide 31 H (22-29) mmol/L Anion Gap 7 L (12-20) BUN 21 H (9-16) mg/dL Creatinine 0.57 (0.5-1.4) mg/dL Estim Creat Clear Calc 58.1 Estimated GFR > 60 POC Glucose 102 (60-115) mg/dL Random Glucose 93 (60-115) mg/dL Calcium 9.7 (8.4-10.2) mg/dL Magnesium 2.2 (1.6-2.6) mg/dL Total Bilirubin 0.6 (0.0-1.0) mg/dL Direct Bilirubin 0.2 (0.0-0.5) mg/dL AST 23 (5-31) U/L ALT 17 (0-31) U/L Alkaline Phosphatase 69 (39-117) U/L C-Reactive Protein < 0.10 (< or = 0.50) mg/dL Total Protein 7.1 (6.5-8.0) g/dL Albumin 4.1 (3.5-5.0) g/dL Lipase 19 (8-78) U/L Urine Color Yellow Urine Appearance Cloudy Urine pH 7.0 (5.0-9.0) Ur Specific [place] 1.015 (1.005-1.025) Urine Protein Negative (Neg-Trace) mg/dL Urine Glucose (UA) Negative (Negative) mg/dL Urine Ketones Negative (Negative) mg/dL Urine Blood Trace H (Negative) Urine Nitrite Positive H (Negative) Ur Leukocyte Esterase Large (3+) H (Negative) Urine RBC 3-5 H (0-2) /HPF Urine WBC >50 H (0-5) /HPF Ur Squamous Epith Cells 0-2 (0-2) /HPF Urine Bacteria 4+ (None Seen) Hyaline Casts 0-2 (0-2) /LPF Independent Interpretation I performed an independent interpretation of an: EKG Interpretation: Rate: 74 Rhythm: NSR [place]: 40/-12/-2 Normal P waves. Normal KAMI. Normal QRS complex. ST T wave : no dep, elev qTC: 379 prior studies: similar The study has been interpreted contemporaneously by me. Radiology Impression Discussion of test interpretation with radiology: I have reviewed the radiologist's reading. Radiologist Impression: IMPRESSION: 1. No acute findings. 2. Mild urinary bladder wall thickening may represent cystitis. Correlate with urinalysis. 3. Colonic diverticulosis. 4. Nonobstructing right renal stone and bilateral renal cysts. 5. Right basilar 4 mm nodule. Follow-up should be obtained as per Fleischner society criteria. Independent Historian Clinical information obtained from an independent historian. History obtained from or confirmed by: Other (Daughter) External Record Review External record reviewed: Inpatient record, Office record, Outpatient record and Prior outpatient labs Chronic Conditions Patient?s care impacted by: Hypertension Social Determinants Patient?s care significantly limited by Social Determinants of Health including: Problems related to primary support group Medications Administered Discontinued Medications Generic Name Dose Route Start Last Admin Trade Name Freq PRN Reason Stop Dose Admin Ceftriaxone Sodium 1 gm/ 50 mls @ 100 mls/hr 03/03/25 16:27 03/03/25 17:57 Sodium Chloride IV 03/03/25 16:56 100 mls/hr ONCE ONE Administration Sodium Chloride 1,000 mls @ 999 mls/hr 03/03/25 17:26 03/03/25 17:56 Ns IV 03/03/25 18:26 999 mls/hr .Q1H1M ONE Administration Iohexol 100 ml 03/03/25 17:18 03/03/25 17:18 Iohexol 350 Mg/Ml 100 Ml Infus..Btl IV 03/03/25 17:19 85 ml ONCE ONE Administration Ondansetron HCl 4 mg 03/03/25 17:26 03/03/25 17:56 Ondansetron Hcl 4 Mg/2 Ml Vial IVPUSH 03/03/25 17:27 4 mg ONCE ONE Administration Discharge Plan Discharge Clinical Impression: Complicated UTI (urinary tract infection) Patient Disposition: Home, Self-Care Instructions: Urinary Tract Infection in (ED) Additional Instructions: As we discussed, your lab work was overall reassuring today, as was your CT scan. However, the urinalysis sample showed evidence of a urinary tract infection. Given that you recently had a urinary tract infection roughly 3 weeks ago, we would really like for you to follow up with Urogynecology outpatient. I have prescribed you a course of oral antibiotics for the next 10 days. Please complete the full course of the antibiotics as prescribed to you. Please keep the follow up appointment tomorrow with your PCP. Discussed with them the results below, which is your CT scan. Please note this is listed for your convenience and discussion with your primary care provider, as we discussed in the ED today. With any worsening complaints at any time, return back to the ED for reassessment. IMPRESSION: 1. No acute findings. 2. Mild urinary bladder wall thickening may represent cystitis. Correlate with urinalysis. 3. Colonic diverticulosis. 4. Nonobstructing right renal stone and bilateral renal cysts. 5. Right basilar 4 mm nodule. Follow-up should be obtained as per Fleischner society criteria. Prescriptions: New cefpodoxime 200 mg tablet 200 mg PO Q12H 10 Days Qty: 20 0RF Rx Instructions: must administer with a meal/food No Action triamterene-hydrochlorothiazid 37.5-25 mg tablet 1 tab PO DAILY Qty: 90 3RF omeprazole 20 mg capsule,delayed release(DR/EC) 20 mg PO DAILY Qty: 90 1RF pyridoxine (vitamin B6) [Vitamin B-6] 100 mg tablet 100 mg PO DAILY Qty: 90 3RF meclizine 12.5 mg tablet 12.5 mg PO TID PRN (Reason: dizziness) Referrals: [facility] [Outside] Renee Lizarraga MD [Primary Care Provider, Internal Medicine] Print Language: Welsh
[2025-03-03 10:05] VITALS: BP 202/86; PULSE 81; RESP 18; TEMP 36.4; O2SAT 94; BMI 23.0
[2025-03-03 10:52] LABS: MANUAL DIFF FLAG NO
[2025-03-03 10:53] LABS: Hematocrit 42.9 % (37.0-47.0); Hemoglobin 13.9 g/dl (12.0-16.0); Imm Gran Abs Auto 0.03 X10*3/uL (0.00-0.03); Imm Gran Pct Auto 0.3 % (0.0-0.4); Lymphocytes Absolute Auto 1.0 X10*3/uL (1.2-4.9); Mean Corpuscular HGB Conc 32.4 g/dl (31.0-35.0); Mean Corpuscular Hemoglobin 29.4 pg (27.0-33.0); Mean Corpuscular Volume 90.7 fL (80.0-98.0); NRBC Abs Auto 0.000 X10*3/uL (0.0-0.012); NRBC Pct Auto 0.0 /100WBC (0.0-0.2); Platelet Count 217 X10*3/uL (160-400); Red Blood Count 4.73 X10*6/uL (4.20-5.50); White Blood Count 10.3 X10*3/uL (4.8-10.8)
[2025-03-03 11:04] LABS: Appearance Urine Cloudy; Glucose Urine UA Negative (Negative); PH 7.0 (5.0-9.0); Specific Gravity - Urine 1.015 (1.005-1.025); UMIC TRIGGER UACC YES
[2025-03-03 11:09] LABS: Alanine Aminotransferase 17 U/L (0-31); Albumin Level 4.1 g/dL (3.5-5.0); Alkaline Phosphatase 69 U/L (39-117); Anion Gap 7 (12-20); Aspartate Amino Transferase 23 U/L (5-31); Blood Urea Nitrogen 21 mg/dL (9-16); Calcium 9.7 mg/dL (8.4-10.2); Carbon Dioxide 31 mmol/L (22-29); Chloride 107 mmol/L (96-108); Creatinine Clr Calc Pharmacy 58.1; Estimated Glomerular Filt Rate > 60; Lipase 19 U/L (8-78); Magnesium 2.2 mg/dL (1.6-2.6); Potassium 3.7 mmol/L (3.3-5.1); Sodium 141 mmol/L (135-145); Total Protein 7.1 g/dL (6.5-8.0)
[2025-03-03 12:28] LABS: UACC Culture Trigger YES
[2025-03-03 14:05] VITALS: BP 155/91; PULSE 78; RESP 18; TEMP 36.9; O2SAT 95
[2025-03-03 16:56] LABS: Glucose, Whole Blood 102 mg/dL (60-115)
[2025-03-03] MEDS: iohexoL 350 MG/ML 100 ML INFUS..BTL IV (17:18)
[2025-03-03 18:32] VITALS: BP 193/94; PULSE 87; RESP 16; TEMP 36.5; O2SAT 97
--- NOTE | 2025-03-03 18:40 | PC.NURSE ---
patient a&ox3, iv inserted, labs previously drawn in triage, urine obtained- pt + uti, pt medicated with iv abx and ivf, call warner within reach, plan of care ongoing
[2025-03-03 20:54] VITALS: BP 193/94; PULSE 87; RESP 16; TEMP 36.5; O2SAT 97
--- OUTSIDE RECORDS SUMMARY | 2025-03-03 23:01 | XMS_ITS | Clinical Summary ---
Author Organization [facility] Prior to 08/23/[address] [place] [address] Care Team Providers Care Practice Support Specialist Name Role Phone Franca Bautista DO Primary Care Provider [phone] Allergies Active Allergy Reactions Criticality Noted Date [...] age to complete this topic Care Teams Practice Support Specialist Relationship Specialty Start Date End Date Franca Bautista DO PCP - General Family Medicine 05/15/17
--- OUTSIDE RECORDS SUMMARY | 2025-03-03 23:02 | XMS_ITS | Patient Health Record ---
Author Organization [facility] Address [address] [place] [id number] Care Team Providers Care Underwriting Clerk Name Role Phone Renee Lizarraga MD Primary [...] Status W/U Status Risk Notes Problem Diarrhea (50945867) Diarrhea (R19.7) Active con firmed Problem Gastroesophageal reflux disease (144135239) Gastroesophageal reflux disease (K21.9) Active confirmed Vital Signs Temperature 96.7 degrees Fahrenheit 01/22/2025 Blood pressure diastolic 01 mm Hg 01/22/2025 Height 61 in 01/22/2025 Blood pressure systolic 001 mm Hg 01/22/2025 Weight 129.6 lbs 01/22/2025 BMI 24.49 kg/m2 01/22/2025 Encounters Encounter Location Date Provider Diagnosis [facility] [address] [place] [address] 01/22/2025 Rashawn Dom Lacey Gastroesophageal reflux disease [...] MEDICARE OF [employer] [address] NARCISA PARKER [id number] DANDRE SMITH Self - patient is the insured Medical (General) History Medical History History ICD Code hypertension dizziness Hyperlipidemia Anxiety/depression Eczema Urinary tract infections
== END 2025-03-03 20:54 | disposition home or self-care (01) ==
PROVIDERS: Emergency Medicine; Emergency Provider Emergency Medicine; PCP Internal Medicine
DX: N39.0 Urinary tract infection, site not specified (principal); R10.11 Right upper quadrant pain; R10.12 Left upper quadrant pain; R94.31 Abnormal electrocardiogram [ECG] [EKG]; I10 Essential (primary) hypertension; E78.5 Hyperlipidemia, unspecified
CPT/HCPCS: 36415; 74177; 80048; 80076; 81001; 81003; 82947; 83690; 83735; 85025; 86140; 87086; 87088; 87186; 93005; 96361; 96374; 96375; 99285; J0696; J2405; Q9967

== ENCOUNTER → 2025-03-03 10:04 | Outpatient (BNV) | payer MEDICARE, SELFPAY | PROVIDERS: Visit Provider Internal Medicine Cardiovascular Disease | DX: I25.2 Old myocardial infarction (principal) | CPT/HCPCS: 93010 ==

== ENCOUNTER → 2025-03-03 16:20 | Outpatient (BNV) | payer MEDICARE, SELFPAY | PROVIDERS: Emergency Provider Emergency Medicine; PCP Internal Medicine; Visit Provider Specialist | DX: K57.30 Diverticulosis of large intestine without perforation or abscess without bleeding (principal); N20.0 Calculus of kidney; N28.1 Cyst of kidney, acquired; R91.1 Solitary pulmonary nodule; N32.89 Other specified disorders of bladder | CPT/HCPCS: 74177 ==

== ENCOUNTER 2025-03-04 09:19 | Outpatient (AMB) | payer MEDICARE, SELFPAY ==
--- NOTE | 2025-03-04 09:20 | MHC.PC.OV ---
Vital Signs 03/04/25 09:26 Height 5 ft 2 in Weight 57.266 kg BMI 23.1 BP 136/66 Pulse 79 Pulse Source Pulse Oximeter Temp 97.8 F Temp Source Temporal Artery Scan Pulse Oximetry (%) 95 Oxygen Delivery Method Room Air Intake Visit Reasons: ALONDRA Renee/ Re-Establish Care/[employer] Required: No Accompanied by: Self / Same As Patient Allergies ciprofloxacin (From CIPRO) Allergy (Intermediate, Verified 03/04/25 09:20) VOMITING hydrocortisone (Cipro HC) Adverse Reaction (Unknown, Verified 03/04/25 09:20) vomiting Statins Depletion Allergy (Unknown, Uncoded 03/04/25 09:20) vomiting Medication List - Last Reconciled 03/04/25 by TIMMY Luz cefpodoxime 200 mg PO Q12H 10 days meclizine 12.5 mg PO TID PRN triamterene-hydrochlorothiazid 37.5-25 mg 1 tab PO DAILY Tobacco use date assessed: 12/05/24 Dental Screening Dental Screen Date: 12/05/24 HPI HPI Comments History of Present Illness Details 84-year-old female with history of recurrent UTI, hypertension, hyperlipidemia, anxiety/depression, cataracts, BPPV, nephrolithiasis presenting to the office today for management of chronic conditions and to establish care. Recurrent UTI-patient seen in the ED yesterday with complaints including subjective fevers with sweats and chills. She was complaining about increased urinary frequency/urgency as well as incomplete bladder emptying. Denies any dysuria or hematuria. She does also have some lower abdominal pain. Urinalysis was consistent with UTI. With 3+ leukocytes, significant urinary sediment and 4+ bacteria. Urine culture result today remains pending. CT of the abdomen/pelvis negative for any acute issues except bladder wall thickening consistent with cystitis. She had just completed a course of cefpodoxime twice daily for 10 days which he completed on 02/11/2025 due to urinalysis results but urine culture ultimately was negative. Urine culture was also positive for UTI growing pansensitive E coli and was again treated with cefpodoxime. She was again started on cefpodoxime 200 mg twice daily and she will be contacted discontinue the medication. She has presented for similar symptoms 6 times in the last year with 3 cultures growing E coli and she was treated with antibiotics consistent with sensitivity report. She states that she is very confident with her hygiene. Has not felt any bulging from the area nor has she had any pain or abnormal discharge. There has been no incontinence. She has been doing Kegel exercises. Urgent care did refer her to Urogynecology but she has not yet received an appointment. She is also using cranberry supplements. She is taking triamterene-hydrochlorothiazide which could possibly be related to her symptoms but she has been on this medication for much longer than her recurrent symptoms have been occurring. In addition, she has had positive urine cultures as well. It is possible that the urine culture may be negative given recent courses of antibiotics. Anxiety/depression-reports this is stable. PHQ-9 score 0, colleen 7 score 0. Not currently on any medications BPPV-completed physical therapy for this and continues exercises at home with good improvement in symptoms. She does have meclizine but she releases the medication. Hypertension/PVCs/HLD-blood pressure in the office 136/66. On triamterene-hydrochlorothiazide 37.5-25 mg daily. Last LDL 184. Not on statin, reports history of adverse effect Nephrolithiasis-has also had multiple imaging reports revealing nonobstructing stones in the renal pelvis. She denies any flank pain or hematuria Concerns: As mentioned above-recurrent UTI/urgency/incomplete bladder emptying ROS: See HPI EXAM: Constitutional - Awake and Alert, No apparent distress Eyes - PERRL Cardiovascular - S1S2, RRR, No edema Respiratory - Normal lung expansion, Normal respiratory effort, No respiratory distress, CTA bilaterally Abd - BS x4. Soft, nondistended. Mild tenderness to palpation over the bilateral pelvis and suprapubic area. No guarding or rebound Back-discomfort over the left flank with palpation but no true CVA tenderness Extremities - no calf tenderness bilaterally, no swelling Skin - Warm/Dry Neurological - Alert & oriented x3 Psychological - Appropriate affect [facility] Medical History (Updated 03/04/25 @ 11:02 by TIMMY Luz) HLD (hyperlipidemia) Suprapubic abdominal burning sensation Increased urinary frequency Nephrolithiasis Abdominal cramping HTN (hypertension) Dysplastic nevi Annual physical exam MARTINEZ (dyspnea on exertion) Fatigue Anxiety Hypercholesterolemia Surgical History H/O colonoscopy Family History Father No problems noted. Mother Osteomyelitis Social History Household Members Other:: Lives alone, exercise 5 times a week Housing: House Alcohol intake: current Alcohol type: wine Patient Tobacco Use Status: Former Tobacco user e-Cigarette/Vaping Use: Never Used service: No Current occupational status: retired Cognitive needs: No Hearing needs: No Vision needs: Yes Questionnaire Thrive Questionnaire Date Thrive assessed: 09/05/24 COLLEEN-7 AMB Questionnaire COLLEEN-7 Date COLLEEN - 7 assessed: 07/21/24 Source: Developed by Drs. José Miguel Canela, Nafisa Lucas, Yony Schultz and colleagues, with an educational neal from [employer]. Physical exam (Primary Care) Vital Signs: Last Vital Signs Temp 97.8 F 03/04/25 09:26 Pulse 79 03/04/25 09:26 BP 136/66 03/04/25 09:26 Pulse Ox 95 03/04/25 09:26 Oxygen Delivery Method Room Air 03/04/25 09:26 BMI result Body Mass Index 23.1 Tobacco/Smoking Status: Tobacco use Status Tobacco use date assessed 12/05/24 03/04/25 09:23 Patient Tobacco Use Status Former Tobacco user 03/04/25 09:23 e-Cigarette/Vaping Use Never Used 03/04/25 09:23 Thrive Assessment: Date of Thrive Assessment Date Thrive assessed 09/05/24 03/04/25 09:23 Coding Level of Care Code Est Pt Level 5 (45884) Add On Problem Visit Only Diagnoses Hypercholesterolemia E78.00 Benign positional vertigo H81.10 Nephrolithiasis N20.0 Recurrent UTI N39.0 Lung nodule seen on imaging study R91.1 Hypertension, unspecified type I10 Hypertension type: unspecified Time Spent (min) 50 Assessment & Plan Assessment & Plan (1) Hypercholesterolemia: Comment: intolerant to statins, pt refuses meds Code(s): E78.00 - Pure hypercholesterolemia, unspecified Category: Medical Plan: LDL 184. Will work on lifestyle modifications. We will recheck lipid profile several days prior to next visit. (2) Benign positional vertigo: Comment: Completed physical therapy, now performing exercises at home with good effect. Rare use of meclizine Code(s): H81.10 - Benign paroxysmal vertigo, unspecified ear Category: Medical Plan: Continue with home exercises given significant improvement in symptoms. She can use meclizine as needed. Should symptoms become more frequent/severe, can also consider referral to ENT (3) Nephrolithiasis: Comment: US 09/2024 nonobstructing multiple kidney stones. Again demonstrated on CT abdomen pelvis 02/2025 Code(s): N20.0 - Calculus of kidney Category: Medical Plan: Discussed that stones are nonobstructing. It is very unlikely that this is contributing to her urinary symptoms. However, she is referred to Urology for further evaluation and management. Advised to be sure she is drinking at least 64 oz of water daily. (4) Recurrent UTI: Code(s): N39.0 - Urinary tract infection, site not specified Category: Medical Plan: Given her symptoms, seems Urology would likely better serve her needs rather than Urogynecology. We will await urine culture results from hospitalization yesterday. However it is very likely that this will be negative due to 2 recent courses of antibiotics noted on sensitivity report. For now, she can continue this cefpodoxime as ordered. She can continue using cranberry and again is advised to drink at least 64 oz of water daily. (5) Lung nodule seen on imaging study: Comment: 4mm basilar nodule Code(s): R91.1 - Solitary pulmonary nodule Category: Medical Plan: Incidental finding on CT of the abdomen/pelvis. Chest CT ordered for better characterization of the basilar lung nodule. Discussed findings of the CT of the abdomen/pelvis and questions answered. She is not a smoker. (6) HTN (hypertension): Code(s): I10 - Essential (primary) hypertension Category: Medical Qualifiers: Hypertension type: unspecified Qualified Code(s): I10 - Essential (primary) hypertension Plan: Controlled. For now, continue triamterene-hydrochlorothiazide 37.5-25 mg daily. Discussed that this can cause increased urinary frequency but should not increase likelihood of UTI. She has also been on the medication for many years prior to onset of symptoms. It also seems less likely that this is the trigger for her symptoms as she has had confirmed UTI as well in the medication as well. Plan Follow-up in the office in 4 months with labs completed prior to visit Orders: Orders Complete Blood Count Auto Diff 4 Months E55.9 - Vitamin D deficiency, unspecified, E78.00 - Pure hypercholesterolemia, unspecified, E78.5 - Hyperlipidemia, unspecified, F32.A - Depression, unspecified, F41.9 - Anxiety disorder, unspecified, H26.9 - Unspecified cataract, H81.10 - Benign paroxysmal vertigo, unspecified ear, I10 - Essential (primary) hypertension Lipid Panel 4 Months E55.9 - Vitamin D deficiency, unspecified, E78.00 - Pure hypercholesterolemia, unspecified, E78.5 - Hyperlipidemia, unspecified, F32.A - Depression, unspecified, F41.9 - Anxiety disorder, unspecified, H26.9 - Unspecified cataract, H81.10 - Benign paroxysmal vertigo, unspecified ear, I10 - Essential (primary) hypertension Vitamin D 25-OH Total 4 Months E55.9 - Vitamin D deficiency, unspecified, E78.00 - Pure hypercholesterolemia, unspecified, E78.5 - Hyperlipidemia, unspecified, F32.A - Depression, unspecified, F41.9 - Anxiety disorder, unspecified, H26.9 - Unspecified cataract, H81.10 - Benign paroxysmal vertigo, unspecified ear, I10 - Essential (primary) hypertension CT chest wo IV con Today R91.1 - Solitary pulmonary nodule Basic Metabolic Panel 4 Months E55.9 - Vitamin D deficiency, unspecified, E78.00 - Pure hypercholesterolemia, unspecified, E78.5 - Hyperlipidemia, unspecified, F32.A - Depression, unspecified, F41.9 - Anxiety disorder, unspecified, H26.9 - Unspecified cataract, H81.10 - Benign paroxysmal vertigo, unspecified ear, I10 - Essential (primary) hypertension IRON PROFILE 4 Months E55.9 - Vitamin D deficiency, unspecified, E78.00 - Pure hypercholesterolemia, unspecified, E78.5 - Hyperlipidemia, unspecified, F32.A - Depression, unspecified, F41.9 - Anxiety disorder, unspecified, H26.9 - Unspecified cataract, H81.10 - Benign paroxysmal vertigo, unspecified ear, I10 - Essential (primary) hypertension Liver Panel 4 Months E55.9 - Vitamin D deficiency, unspecified, E78.00 - Pure hypercholesterolemia, unspecified, E78.5 - Hyperlipidemia, unspecified, F32.A - Depression, unspecified, F41.9 - Anxiety disorder, unspecified, H26.9 - Unspecified cataract, H81.10 - Benign paroxysmal vertigo, unspecified ear, I10 - Essential (primary) hypertension Referrals Urology Referral N20.0 - Calculus of kidney, N39.0 - Urinary tract infection, site not specified, R33.9 - Retention of urine, unspecified
[2025-03-04 09:26] VITALS: BP 136/66; PULSE 79; TEMP 36.6; O2SAT 95; BMI 23.1
== END 2025-03-04 10:05 | disposition home or self-care (01) ==
LOC: HO.HMCHD 09:19
PROVIDERS: PCP Internal Medicine; Visit Provider Physician Assistant
DX: E78.00 Pure hypercholesterolemia, unspecified (principal); N39.0 Urinary tract infection, site not specified; N20.0 Calculus of kidney; R91.1 Solitary pulmonary nodule; I10 Essential (primary) hypertension; H81.10 Benign paroxysmal vertigo, unspecified ear

== ENCOUNTER → 2025-03-04 09:19 | Outpatient (BNVA) | payer MEDICARE, SELFPAY | PROVIDERS: PCP Internal Medicine; Visit Provider Physician Assistant | DX: I10 Essential (primary) hypertension (principal); R91.1 Solitary pulmonary nodule; N20.0 Calculus of kidney; N39.0 Urinary tract infection, site not specified; E78.00 Pure hypercholesterolemia, unspecified; F32.A Depression, unspecified; F41.9 Anxiety disorder, unspecified; H81.10 Benign paroxysmal vertigo, unspecified ear | CPT/HCPCS: 99212 ==